=== PATIENT | male | born 1955 | race Caucasian/White ===

== ENCOUNTER 2019-04-09 03:35 | Emergency (ER) | payer OTHER ==
[2019-04-09 04:35] LABS: Absolute Lymphocytes (CBC) 0.2 K/uL (0.7-4.9); Basophils % 1.1 % (0-1.3); MPV 8.8 fL (7.6-11.3); RBC Red Blood Cell Count 1.93 M/uL (4.33-5.43)
[2019-04-09 04:57] LABS: Albumin 1.7 g/dL (3.4-5.0); Bilirubin Direct 0.8 mg/dL (0-0.2); Bilirubin Total 1.8 mg/dL (0.2-1.0); Potassium 4.6 mmol/L (3.5-5.1); Protein, Total 6.6 g/dL (6.4-8.2)
[2019-04-09 05:01] LABS: Hematocrit 17.3 % (39.6-49.0)
[2019-04-09] MEDS ORDERED: NA CHLORIDE 0.9% 500 ML ONE (06:39)
--- NOTE | 2019-04-09 06:39 | ER ---
Nurse's Notes [facility] Name: Lukas Nicole Age: 63 yrs Sex: Male : 1955 Arrival Date: 04/09/2019 Time: 03:42 Bed 2 Private MD: Diagnosis: Abdominal pain and distension. Gross ascites. Ca liver. Anemia Presentation: 04/09 03:40 Presenting complaint: EMS states: we were called out for the chief complaint swelling rr5 of the abdomen (ascitic), having the discomfort that is getting worse. patient been a known case of liver cirrhosis liver cancer. 03:40 Transition of care: patient was not received from another setting of care. Onset of rr5 symptoms was April 09, 2019. Risk Assessment: Do you want to hurt yourself or someone else? Patient reports no desire to harm self or others. Initial Sepsis Screen: Does the patient meet any 2 criteria? No. Patient's initial sepsis screen is negative. Does the patient have a suspected source of infection? No. Patient's initial sepsis screen is negative. Note had [facility] before. but now does get an appointment. patient reported had an on and off diarrhea. Care prior to arrival: Medication(s) given: reglan. 03:40 Method Of Arrival: EMS: [facility] rr5 03:40 Acuity: RAMIRO 3 rr5 Historical: - Allergies: 03:50 No Known Allergies; rr5 - Home Meds: 03:50 Nexavar oral oral [Active]; Lactulose Oral [Active]; doxazosin oral oral [Active]; rr5 Spironolactone Oral [Active]; enoxaparin subcutaneous subcutaneous [Active]; Zofran Oral [Active]; carvedilol oral oral [Active]; amlodipine oral [Active]; Furosemide Oral [Active]; tramadol Oral [Active]; Zinc Sulfate Oral [Active]; D3 [Active]; Miralax Oral [Active]; Simethicone Oral [Active]; gabapentin oral oral [Active]; Acetaminophen-Codeine Oral [Active]; Methocarbamol Oral [Active]; senocot [Active]; - PMHx: 03:50 Hypertension; polycystic kidney disease; gallstones; liver cancer; lymph node cancer; rr5 portal and spleenic blood clots; - PSHx: 03:50 Appendectomy; removed varicose veins; Knee surgery; Hernia repair; leg repair for rr5 bruising compartment syndrome; - Immunization history:: Adult Immunizations up to date. - Social history:: Smoking status: Patient/guardian denies using tobacco, Patient/guardian denies using alcohol, street drugs. - Ebola Screening: : Patient negative for fever greater than or equal to 101.5 degrees Fahrenheit, and additional compatible Ebola Virus Disease symptoms Patient denies exposure to infectious person Patient denies travel to an Ebola-affected area in the 21 days before illness onset. Screenin:58 Abuse screen: Denies threats or abuse. Denies injuries from another. Nutritional rr5 screening: No deficits noted. Tuberculosis screening: No symptoms or risk factors identified. Fall Risk IV access (20 points). Gait- Impaired (20 pts.). Total Lion Fall Scale indicates Low Risk Score (25-44 pts). Fall prevention measures have been instituted. Side Rails Up X 2 Placed close to Nursing Station Frequent Obs/Assesments occuring Family Present and informed to notify staff if they need to leave bedside As available Patient and Family Educated on Fall Prevention Program and strategies. Assessment: 03:30 General: Appears in no apparent distress. uncomfortable, Behavior is calm, cooperative, rr5 appropriate for age. Pain: Complains of pain in abdomen diffusely Pain radiates to chest Pain currently is 5 out of 10 on a pain scale. Quality of pain is described as aching, Pain began gradually, Is intermittent. Neuro: Level of Consciousness is awake, alert, obeys commands, Oriented to person, place, time, situation, Appropriate for age. Cardiovascular: Capillary refill < 3 seconds Patient's skin is warm and dry. Respiratory: Reports shortness of breath Airway is patent Respiratory effort is even, unlabored, Respiratory pattern is regular, symmetrical. GI: Abdomen is noted to have ascites, Reports bloating, diarrhea. : No signs and/or symptoms were reported regarding the genitourinary system. EENT: Eyes icteric sclera. 03:30 Derm: Skin is intact, Skin is pale, Skin temperature is warm. Musculoskeletal: rr5 Capillary refill < 3 seconds, Swelling present in right leg. 04:15 Reassessment: Patient appears in no apparent distress at this time. No changes from rr5 previously documented assessment. Patient and/or family updated on plan of care and expected duration. Pain level reassessed. Patient is alert, oriented x 3, equal unlabored respirations, skin warm/dry/pink. awaiting for results. 05:10 Reassessment: HGB of 5.5 ED provider aware with order made and carried out. for rr5 transfusion 2 PRBC, consented request sent. 06:25 Reassessment: Patient appears in no apparent distress at this time. Patient is alert, rr5 oriented x 3, equal unlabored respirations, skin warm/dry/pink. awaiting for the blood product for transfusion. for transfer to [facility] still awaiting for the acceptance. patient is resting eyes closed breathing spontaneously with oxygen support 2 liters via nasal cannula. no complaints made. 06:52 Reassessment: transfer center [facility] Marianne said to call back after shift change. rr5 06:59 Reassessment: blood transfusion started, checked by 2 nurses. primary nurse at bedside. jd3 07:00 Reassessment: Patient appears in no apparent distress at this time. 1st unit of PRBC rr5 started wristband [id number] unit number [id number] expires 05/02/2019. type a positive. double check by 2 nurses. 07:08 Reassessment: Patient appears in no apparent distress at this time. pt received with blood infusing as ordered, checked off with Miguel MCKAY, transfusion continues at this time, pt tolerating well, pt family at bedside, awaiting to call report to receiving facility, pt to be transferred. 07:41 Reassessment: Patient appears in no apparent distress at this time. report called to jack Hammer RN. She states that [facility] does not accept patients with active blood transfusion, pt to be transfused then transferred to receiving facility, pt and pt family updated. 09:35 Reassessment: Patient appears in no apparent distress at this time. Patient and/or sg family updated on plan of care and expected duration. Pain level reassessed. Patient is alert, oriented x 3, equal unlabored respirations, skin warm/dry/pink. 2nd unit PRBC infusion completed at this time. Respiratory: Airway is patent Respiratory effort is even, unlabored, Respiratory pattern is regular, symmetrical, Breath sounds are clear. 09:35 Derm: Skin is intact, Skin is jaundiced, pale, Skin temperature is warm. sg Musculoskeletal: Capillary refill < 3 seconds, in bilateral fingers. toes. Swelling present in right leg Reports pain in right leg. Vital Signs: 03:45 BP 121 / 62; Pulse 72; Resp 19; Temp 98.4; Pulse Ox 100% ; Weight 113.4 kg; Height 6 rr5 ft. 3 in. (190.50 cm); Pain 5/10; 04:39 BP 118 / 81; Pulse 75; Resp 18; Pulse Ox 99% on 2 lpm NC; rr5 05:45 BP 116 / 71; Pulse 70; Resp 17; Temp 97.5; Pulse Ox 99% on 2 lpm NC; rr5 06:28 BP 115 / 70; Pulse 76; Resp 18; Temp 97.5; Pulse Ox 99% on 2 lpm NC; rr5 07:10 BP 130 / 76; Pulse 88; Resp 18; Temp 97.5; Pulse Ox 99% on 2 lpm NC; sg 07:25 BP 122 / 81; Pulse 79; Resp 16; Temp 97.7; Pulse Ox 100% on 2 lpm NC; sg 08:35 BP 103 / 58; Pulse 73; Resp 16; Temp 98.2; Pulse Ox 100% on 2 lpm NC; sg 09:05 BP 108 / 71; Pulse 72; Resp 16; Temp 98.2; Pulse Ox 100% on 2 lpm NC; Pain 1/10; sg 09:40 BP 112 / 70; Pulse 79; Resp 16; Temp 97.9; Pulse Ox 100% on 2 lpm NC; Pain 1/10; sg 03:45 Body Mass Index 31.25 (113.40 kg, 190.50 cm) rr5 ED Course: 03:20 Maintain EMS IV. Dressing intact. Good blood return noted. Site clean \T\ dry. Gauge \T\ rr 5 site: G20 right forearm. 03:42 Patient arrived in ED. rr5 03:47 Moreno Prince MD is Attending Physician. pkl 03:48 Triage completed. rr5 03:50 Arm band placed on right wrist. rr5 04:28 Miguel Singh RN is Primary Nurse. rr5 04:49 Patient has correct armband on for positive identification. Bed in low position. Call rr5 light in reach. Side rails up X2. Pulse ox on. NIBP on. 05:03 Notified ED physician of a critical lab result(s). Hgb of 5.5, Hct of 17.3. Dr Suresh muller notified. 05:50 transfer initiated by [facility] with Ramon from the [facility]. eb 06:[address] Carroll the hospitalist sewing machines salesperson for [facility] with Dr. Prince for patient eb transfer consultation. 06:29 administrative approval given by Magalie Beauchamp craft coordinator pending a bed. Dr. dl Norton has accepted the patient in transfer to [facility]. 06:39 room assignment given by Magalie Beauchamp. Pt is going to [facility]. Bed 759/ eb report to be called to [phone]. 06:55 Served as a research assoc during rectal exam. rr5 07:00 Report received from NELY Rivera. sg 07:07 Primary Nurse role handed off by Miguel Singh, NELY sg 07:07 Isaac Bass, RN is Primary Nurse. sg 09:44 Patient transferred, IV remains in place. intact, No redness/swelling at site. sg Administered Medications: 07:53 Drug: fentaNYL (PF) 50 mcg Route: IVP; Site: right forearm; sg 08:30 Follow up: Response: No adverse reaction; Pain is decreased; RASS: Drowsy (-1) Point of Care Testing: Guaiac: 06:55 Stool Guaiac: Positive; Stool Hemoccult Control: Pass; rr5 Outcome: 06:39 ER care complete, transfer ordered by . pk 09:44 Transferred by ground EMS to [facility], Transfer form completed. Note: sv Report given to Morena from EMS 09:44 Condition: stable 09:44 Instructed on the need for transfer. 09:57 Patient left the ED. sg Signatures: Tara Joyce RN RN sv Gay, Steven, RN Moreno Hobson MD MD pkl Ballard, Brenda, RN RN bb Davies, Jonathon, RN RN jElizabeth Hogan Raymond, RN RN rr5 Corrections: (The following items were deleted from the chart) 06:32 06:28 BP 115 / 70; Pulse 76bpm; Resp 18bpm; Pulse Ox 99% 2 lpm Nasal Cannula; Temp rr5 96.9F; rr5
--- NOTE | 2019-04-09 06:39 | EDPHYS ---
Physician Documentation [facility] Name: Lukas Nicole Age: 63 yrs Sex: Male : 1955 Arrival Date: 04/09/2019 Time: 03:42 Bed 2 Private MD: ED Physician Moreno Prince HPI: 04/09 04:11 This 63 yrs old Male presents to ER via EMS with complaints of abdominal pkl discomfort. 04:11 The patient presents with abdominal pain abdominal distention difficulty breathing. pkl Onset: The symptoms/episode began/occurred today. Patient has H/O liver cirrhosis and cancer. Nad radiation therapy and now on chemotherapy. Historical: - Allergies: 03:50 No Known Allergies; rr5 - Home Meds: 03:50 Nexavar oral oral [Active]; Lactulose Oral [Active]; doxazosin oral oral [Active]; rr5 Spironolactone Oral [Active]; enoxaparin subcutaneous subcutaneous [Active]; Zofran Oral [Active]; carvedilol oral oral [Active]; amlodipine oral [Active]; Furosemide Oral [Active]; tramadol Oral [Active]; Zinc Sulfate Oral [Active]; D3 [Active]; Miralax Oral [Active]; Simethicone Oral [Active]; gabapentin oral oral [Active]; Acetaminophen-Codeine Oral [Active]; Methocarbamol Oral [Active]; senocot [Active]; - PMHx: 03:50 Hypertension; polycystic kidney disease; gallstones; liver cancer; lymph node cancer; rr5 portal and spleenic blood clots; - PSHx: 03:50 Appendectomy; removed varicose veins; Knee surgery; Hernia repair; leg repair for rr5 bruising compartment syndrome; - Immunization history:: Adult Immunizations up to date. - Social history:: Smoking status: Patient/guardian denies using tobacco, Patient/guardian denies using alcohol, street drugs. - Ebola Screening: : Patient negative for fever greater than or equal to 101.5 degrees Fahrenheit, and additional compatible Ebola Virus Disease symptoms Patient denies exposure to infectious person Patient denies travel to an Ebola-affected area in the 21 days before illness onset. ROS: 04:11 Eyes: Negative for injury, pain, redness, and discharge, ENT: Negative for injury, pkl pain, and discharge, Neck: Negative for injury, pain, and swelling, Cardiovascular: Negative for chest pain, palpitations, and edema. 04:11 Respiratory: Positive for shortness of breath, at rest. 04:11 Abdomen/GI: Positive for abdominal pain, abdominal distension. 04:11 Back: Negative for acute changes. 04:11 : Negative for urinary symptoms. 04:11 MS/extremity: Positive for swelling, of the both legs. 04:11 Skin: Negative for rash. 04:11 Neuro: Negative for altered mental status. Exam: 04:11 Head/Face: Normocephalic, atraumatic. Eyes: Pupils equal round and reactive to light, pkl extra-ocular motions intact. Lids and lashes normal. Conjunctiva and sclera are non-icteric and not injected. Cornea within normal limits. Periorbital areas with no swelling, redness, or edema. ENT: Nares patent. No nasal discharge, no septal abnormalities noted. Tympanic membranes are normal and external auditory canals are clear. Oropharynx with no redness, swelling, or masses, exudates, or evidence of obstruction, uvula midline. Mucous membranes moist. Neck: Trachea midline, no thyromegaly or masses palpated, and no cervical lymphadenopathy. Supple, full range of motion without nuchal rigidity, or vertebral point tenderness. No Meningismus. Chest/axilla: Normal chest wall appearance and motion. Nontender with no deformity. No lesions are appreciated. Cardiovascular: Regular rate and rhythm with a normal S1 and S2. No gallops, murmurs, or rubs. Normal PMI, no JVD. No pulse deficits. Respiratory: Lungs have equal breath sounds bilaterally, clear to auscultation and percussion. No rales, rhonchi or wheezes noted. No increased work of breathing, no retractions or nasal flaring. 04:11 Abdomen/GI: Inspection: distension, that is moderate. 04:11 Back: Exam negative for acute changes. 04:11 : Exam negative for 04:11 Musculoskeletal/extremity: Extremities: grossly normal except: noted in the both legs: swelling. 04:11 Skin: Exam negative for rash. 04:11 Neuro: Orientation: is normal, Mentation: is normal, Cranial nerves: grossly normal, Motor: is normal. Vital Signs: 03:45 BP 121 / 62; Pulse 72; Resp 19; Temp 98.4; Pulse Ox 100% ; Weight 113.4 kg; Height 6 rr5 ft. 3 in. (190.50 cm); Pain 5/10; 04:39 BP 118 / 81; Pulse 75; Resp 18; Pulse Ox 99% on 2 lpm NC; rr5 05:45 BP 116 / 71; Pulse 70; Resp 17; Temp 97.5; Pulse Ox 99% on 2 lpm NC; rr5 06:28 BP 115 / 70; Pulse 76; Resp 18; Temp 97.5; Pulse Ox 99% on 2 lpm NC; rr5 07:10 BP 130 / 76; Pulse 88; Resp 18; Temp 97.5; Pulse Ox 99% on 2 lpm NC; sg 07:25 BP 122 / 81; Pulse 79; Resp 16; Temp 97.7; Pulse Ox 100% on 2 lpm NC; sg 08:35 BP 103 / 58; Pulse 73; Resp 16; Temp 98.2; Pulse Ox 100% on 2 lpm NC; sg 09:05 BP 108 / 71; Pulse 72; Resp 16; Temp 98.2; Pulse Ox 100% on 2 lpm NC; Pain 1/10; sg 09:40 BP 112 / 70; Pulse 79; Resp 16; Temp 97.9; Pulse Ox 100% on 2 lpm NC; Pain /10; sg 03:45 Body Mass Index 31.25 (113.40 kg, 190.50 cm) rr5 MDM: 03:47 Patient medically screened. pkl 06:35 Data reviewed: vital signs, nurses notes, lab test result(s), radiologic studies, plain pkl films. 06:52 ED course: Talked to Dr. Carroll. Transfer to [facility] under Dr. Norton service. pkl 04/09 04:11 Order name: Basic Metabolic Panel pkl 04/09 04:11 Order name: CBC with Diff pkl 04/09 04:11 Order name: Creatinine for Radiology pkl 04/09 04:11 Order name: Hepatic Function pkl 04/09 04:11 Order name: Lipase pkl 04/09 04:11 Order name: AMMONIA pkl 04/09 04:55 Order name: Creatinine (Radiology Only); Complete Time: 05:06 [facility] 04/09 04:57 Order name: Basic Metabolic Panel; Complete Time: 05:06 [facility] 04/09 04:57 Order name: Liver (Hepatic) Function; Complete Time: 05:06 [facility] 04/09 04:57 Order name: Lipase; Complete Time: 05:06 [facility] 04/09 04:58 Order name: Ammonia; Complete Time: 05:06 [facility] 04/09 05:01 Order name: CBC with Automated Diff; Complete Time: 05:06 [facility] 04/09 05:04 Order name: Type And Screen 04/09 05:05 Order name: PRBC 04/09 04:11 Order name: IV Saline Lock; Complete Time: 04:28 [facility] 04/09 04:11 Order name: Labs collected and sent; Complete Time: 04:28 [facility] 04/09 04:11 Order name: XRAY Abdomen Acute Series [facility] 04/09 05:05 Order name: Transfuse; Complete Time: 07:03 04/09 05:44 Order name: XRAY CXR (1 view) [facility] 04/09 05:59 Order name: ABO/RH no charge; Complete Time: 06:23 [facility] 04/09 06:28 Order name: ABO/RH typing [facility] 04/09 06:28 Order name: Antibody Screen [facility] 04/09 06:38 Order name: PT-INR 04/09 07:09 Order name: Protime (+INR) [facility] 04/09 08:51 Order name: RAD [facility] 04/09 09:05 Order name: RAD [facility] Administered Medications: 07:53 Drug: fentaNYL (PF) 50 mcg Route: IVP; Site: right forearm; sg 08:30 Follow up: Response: No adverse reaction; Pain is decreased; RASS: Drowsy (-1) sg Point of Care Testing: Guaiac: 06:55 Stool Guaiac: Positive; Stool Hemoccult Control: Pass; rr5 Disposition: 04/09/19 06:39 Transfer ordered to [facility]. Diagnosis is Abdominal pain and distension. Gross ascites. Ca liver. Anemia. - Reason for transfer: Higher level of care. - Accepting physician is Dr. Norton. - Condition is Stable. - Problem is new. - Symptoms are unchanged. Signatures: Dispatcher [facility] Isaac Bass RN RN sg Moreno Prince MD MD pkJosselin Licona RN RN bb Miguel Singh RN RN rr5 Corrections: (The following items were deleted from the chart) 09:57 06:39 04/09/2019 06:39 Transfer ordered to [facility]. Diagnosis is sg Abdominal pain and distension. Gross ascites. Ca liver. Anemia. Reason for transfer: Higher level of care. Accepting physician is Dr. Norton. Condition is Stable. Problem is new. Symptoms are unchanged. pkl
[2019-04-09 06:56] LABS: Protime INR 1.3
[2019-04-09] MEDS ORDERED: FENTANYL CITR 100 MCG/2 ML ONE (07:51)
--- NOTE | 2019-04-09 08:50 | RAD REPORT ---
EXAM DESCRIPTION: [place] Single View04/09/2019 6:01 am CLINICAL HISTORY: sob COMPARISON: none FINDINGS: The lungs appear clear of acute infiltrate. The heart is normal size IMPRESSION: No acute abnormalities displayed
--- NOTE | 2019-04-09 09:04 | RAD REPORT ---
EXAM DESCRIPTION: RAD - Abdomen Acute Series - 04/09/2019 5:27 am CLINICAL HISTORY: Abdominal pain FINDINGS: Examination is suboptimal secondary to a combination of technique and body habitus. The bowel gas pattern appears unremarkable Free air is not visualized
[2019-04-09 17:31] VITALS: O2SAT 100
[2019-04-09 17:38] VITALS: TEMP 98.2
[2019-04-09 17:39] VITALS: BP 108/71
== END 2019-04-09 09:57 | disposition short-term general hospital (02) ==
LOC: ER 03:35
PROC: 30233N1 Transfusion of Nonautologous Red Blood Cells into Peripheral Vein, Percutaneous Approach (ICD-10-PCS; principal; 2019-04-09)
DX: C22.8 Malignant neoplasm of liver, primary, unspecified as to type (principal); R18.8 Other ascites; D64.9 Anemia, unspecified; K74.60 Unspecified cirrhosis of liver; I10 Essential (primary) hypertension
CPT/HCPCS: 85025; 80048; 36415; 82140; 86900; 86850; 85610; 86901; 80076; 83690; 74022; 71045; 96374; 99285; 36430; J3010; P9016 ×2; J7040

== ENCOUNTER 2019-04-16 10:03 | Inpatient (IN) | payer OTHER ==
--- NOTE | 2019-04-21 16:03 | R.PREADM ---
SCREENING DATE AND TIME 04/21/2019 10:51 (BUTTER MAKER) ANTICIPATED REHAB ADMISSION DATE 04/23/2019 REFERRING FACILITY [facility] REFERRAL DATE AND TIME 04/21/2019 10:51 (BUTTER MAKER) ACUTE ADMIT DATE 04/09/2019 Previous Rehabilitation(s): No. 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 Calin Chung M.D. MR# [id number] NAME ANANT NICOLE ADDRESS [address] [place] [address] [address]IP [address] DATE OF 1955 AGE 63 SSN# [id number] GENDER male MARITAL STATUS RACE white ADMIT FROM 02 - [facility] PRE-HOSPITAL LIVING SETTING 01 - Home (private home/apt. board/care, assisted living, senior living, transitional living) HOME TYPE AND DETAILS Type of home: single family house # of steps to enter the residence: 1 # of levels in the residence: 1 # of steps within the residence: 0 PRE-HOSPITAL LIVING WITH Family/Relatives FAMILY SUPPORT Yes PRIMARY FAMILY CONTACT NAME Bree Pedroza PRIMARY FAMILY CONTACT PHONE PRIMARY FAMILY CONTACT RELATIONSHIP Spouse IS PRIMARY FAMILY CONTACT AUTH. REP.? no 1ST EMERGENCY CONTACT Bree Pedroza 1ST CONTACT PHONE 1ST CONTACT RELATIONSHIP Spouse IS 1ST CONTACT AUTH. REP.? no PHONE 2ND CONTACT ON ADM.? no PATIENT EMPLOYMENT STATUS Retired (for age) PATIENT EMPLOYER No Employer PAYOR INFORMATION: 1ST PAYOR NAME Eri 1ST PAYOR POLICY ID [id number] INJURY/ILLNESS DUE TO ACCIDENT? No ANOTHER [employer] RESPONSIBLE? No PRIMARY REHAB/ACUTE DIAGNOSIS: Decompensated Liver Cirrhosis ONSET DATE 04/09/2019 REHAB IMPAIRMENT CATEGORY (JULEE): 20 Miscellaneous (Misc) does NOT meet 60% rule PRIMARY DIAGNOSIS-RELATED SURGERIES: No surgeries related to the primary diagnosis were performed. 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 is a 63 yo Right-handed white male. On 04/09/2019 [facility] with diagnosis Decompensated Li milagro Cirrhosis . His impairment category is Debility 16 - Debility (16). Pre-morbidly, Pt. was independent/mod-I in Transfers Control, Safety Awareness, Locomotion, Balance, Social Cognition, Sphincter Control, Self-Care, and Endurance; and he had good Safety Awareness. Currently, he has deficits of Locomotion, Balance, Transfers Control, Self-Care, and Endurance. Pt. is now referred to [facility] for acute in-patient rehabilitation in order to maximize patient's functional independence in activities of daily living, strength, ROM, and mobi lity. Patient has realistic goal of being discharged at assistance level 6-[place]inton to reside at Home with Fam rubén/Relatives. Anant Nicole is a 63 year old male that lives with her in a 1 [address] home. He was independent with ADLs and self care. On 04/09/2019, patient has worsening abdominal distention, pain and fatigue and having dark, melanotic stools and was admitted to [facility] and treated. He is now medically stable but in need of 24-hour nursing, doctor supervision and oversite while receiving active and ongoing intensive reasonably expected to participate in 3hours of therapy a day/15 hours per week and receive care with an intensive interdisciplinary approach. 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) Ascites Atrial fibrillation and flutter (I48) Cardiac arrhythmia, unspecified (I49.9) Chronic Kidney Disease Edema Gallstone Heart murmur Hepatitis C Hepatocellular Carcinoma Hypertension Jaundice Mental health Disorder Numbness Polycystic Kidney Disease Rectal Bleeding Symptomatic anemia PAST SURGICAL HISTORY: APPENDECTOMY Cardiac Catheterization EGD Inguinal hernia repair Cholecystectomy Total knee bilateral replacement US upper GI tract, endoscopic MEDICATION ALLERGIES: No Known Drug Allergies (NKDA) ENVIRONMENTAL ALLERGIES: Shellfish - Substance Allergies None Known - Other Allergies None Known CODE STATUS: Full code WEIGHT/HEIGHT/BMI: WEIGHT 252 lbs HEIGHT 6' 3" BMI 31.5 DIET: - Diet Type Regular - Diet - Solid Texture Regular - Diet - Liquid Texture Regular - Tube Feed N/A REVIEW OF SYSTEMS: - Gen Alert and awake Lying in bed No apparent distress Oriented to: person, time, and place - Vital Signs Temperature: 97.7 F SBP/DBP: 120/67 Pulse: 73 Resp: 19 Vital signs stable, afebrile - CVS RRR VITAL SIGNS Temperature: 97.7 F SBP/DBP: 120/67 Pulse: 73 Resp: 19 Vital signs stable, afebrile MEDICATIONS/TREATMENT: Other- See attached MAR (Medication Administration Record). CURRENT SPHINCTER CONTROL: Pre-hospital bladder status: continent # of bladder accidents in the last 7 days prior to screenin Pre-hospital bowel status: continent # of bowel accidents in the last 7 days prior to screenin Last Bowel Movement Date: CURRENT LOCOMOTION STATUS: distance walked 50 feet DETAILED CURRENT FUNCTIONAL STATUS: - Bladder accident frequency: Ind - No accidents in the past 7 days - Bowel accident frequency: Ind - No accidents in the past 7 days - Walking score based on distance walked: 0(N/A) - Wheelchair score based on distance traveled: 0(N/A) QI SCORES: - Self-Care A. Eating 04-Supervision or touching assistance B. Oral hygiene 04-Supervision or touching assistance C. Toileting hygiene 03-Partial/moderate assistance E. Shower/bathe self 03-Partial/moderate assistance F. Upper body dressing 03-Partial/moderate assistance G. Lower body dressing 03-Partial/moderate assistance H. Putting on/taking off footwear 03-Partial/moderate assistance - Mobility A. Roll left and right 03-Partial/moderate assistance B. Sit to lying 03-Partial/moderate assistance C. Lying to sitting on side of bed 88-Not attempted due to medical condition or safety concerns D. Sit to stand 03-Partial/moderate assistance E. Chair/thy-oi-ioevj transfer 03-Partial/moderate assistance F. Toilet transfer 03-Partial/moderate assistance G. Car transfer 88-Not attempted due to medical condition or safety concerns I. Walk 10 feet 03-Partial/moderate assistance J. Walk 50 feet with two turns 88-Not attempted due to medical condition or safety concerns K. Walk 150 feet 88-Not attempted due to medical condition or safety concerns L. Walking 10 feet on uneven surfaces 88-Not attempted due to medical condition or safety concerns M. 1 step (curb) 88-Not attempted due to medical condition or safety concerns N. 4 steps 88-Not attempted due to medical condition or safety concerns O. 12 steps 88-Not attempted due to medical condition or safety concerns P. Picking up object 88-Not attempted due to medical condition or safety concerns R. Wheel 50 feet with two turns 88-Not attempted due to medical condition or safety concerns S. Wheel 150 feet 88-Not attempted due to medical condition or safety concerns - Bladder and Bowel Bladder continence 0-Always continent Bowel continence 0-Always continent - Endurance Fair - Balance Fair - Safety Awareness Fair CURRENT FUNC. DEFICITS: Self-Care, Mobility, Endurance, Balance, and Safety Awareness CURRENT / PREVIOUS ASSISTIVE DEVICES: 3-in-1 Commode BSC [facility] Hospital Bed Raised Toilet Rolling Walker Shower Chair Tub Bench Wheelchair CURRENT USE ASSISTIVE DEVICES: SCDs TEDs HISTORY OF FALLS. HAS THE PATIENT HAD TWO OR MORE FALLS IN THE PAST YEAR OR ANY FALL WITH INJURY IN T HE PAST YEAR?: No PRIOR SURGERY. DID THE PATIENT HAVE MAJOR SURGERY DURING THE 100 DAYS PRIOR TO ADMISSION?: No THERAPY NOTES FROM ACUTE CARE: Attached. SPECIAL NEEDS: - Safety Concerns Skin breakdown precautions needed due to skin breakdown risk PATIENT NEEDS ACTIVE AND ONGOING THERAPEUTIC INTERVENTION OF MULTIPLE THERAPY DISCIPLINES, INCLUDING: - Dietary and Nutrition Adequate Nutrition. Nutritional Education. Nutritional Supplements. PATIENT NEEDS CLOSE MEDICAL SUPERVISION BY A REHABILITATION PHYSICIAN FOR: Coordination of Treatment Team Medical and Co-Morbidity Management PATIENT REQUIRES 24X7 REHAB NURSING FOR MEDICAL AND FUNCTIONAL MGT. OF THE FOLLOWING DEFICITS: Disease Management Medication Management Patient/Family Education Providing Safe Environment PATIENT REQUIRES INTENSIVE, COORDINATED INTERDISCIPLINARY APPROACH TO REHAB: Arranging Home Equipment/Services Discharge Planning Family Intervention/Training Budget Assistant/Case Management PATIENT REHAB POTENTIAL: Sebastián NICOLE is able and expected to receive 3 hours of individualized therapy daily on at least 5 of e very 7 days Sebastián NICOLE's prognosis for significant practical improvement within a reasonable period of time appea rs Good Expected level of measurable improvement will be of a practical value to Sebastián NICOLE's functional capa city or adaptations to impairments Has a viable Discharge Plan Medically appropriate; condition is sufficiently stable to participate in intensive rehab program DISCHARGE PLAN: - Estimated Length of Stay (days) 13. - Consensus on plan Discharge plan has been discussed with primary caregiver. Patient/Family is in agreement with the león n. Primary caregiver is in agreement with the plan. - Patient/Family Goals Return home independently. - Planned Living Setting Upon Discharge Home, to live with Family/Relatives. Transitional Living. RECOMMENDED CARE LEVEL: IRF RECOMMENDATION DETAILS: Recommended Admission to Comprehensive Rehabilitation Program to Increase Functional [place] SCREENER'S COMPLETENESS CONFIRMATION: - Screening Confirmation The patient data collection on this preadmission screening form is finished PHYSICIANS REVIEW AND ADMISSION DETERMINATION Admit - Based on my review of the Pre-Admission Screening results, in my medical judgment and experie nce, I concur with the findings and recommend admission to [facility], as this patient requires an IRF level of care. SIGNATURE PANEL: Clinical Liaison - [electronically] signed by Jason Salomon on 04/21/2019 at 15:56 (BUTTER MAKER) Physician Reviewer - [electronically] signed by Dr. Calin Chung M.D. on 04/21/2019 at 16:03 (BUTTER MAKER )
--- OUTSIDE RECORDS SUMMARY | 2019-04-21 22:12 | XMS REPORT | Summary of Care ---
:1955 Author Organization [facility] Address [address] [place] [address] Care Team Providers Name Role Phone Reymundo Marcos MD Primary Care Provider Reason for Visit Reason Comments Follow-up Diabetes Mellitus II Hypertension Refill Request Encounter Details Date Type Department Care Team Description 01/07/2019 Office Visit [facility] Family Reymundo Marcos, Essential hypertension (Primary Dx); Medicine - Henry GRANADOS Type 2 diabetes mellitus with stage 3 chronic kidney disease, without long- term current use of insulin; [facility] Malignant neoplasm of liver, unspecified liver malignancy type; Drive DR[address] Gastroesophageal reflux disease, esophagitis presence not specified; [place] [id number] Allergies No Known Allergiesdocumented as of this encounter (statuses as of 01/07/2019) Medications Medication Sig Dispensed Refills Start End Date Status Date HYDROcodone-acetaminop Take 1 tablet 120 tablet 0 Active hen 10-325 mg tablet by mouth every 7 6 (six) hours as needed for Pain (scale 4-6). methylPREDNISolone Take by mouth 21 Each 0 Active (MEDROL, PARDEEP,) 4 mg SEE-INSTRUCTIO 8 tabletsIndications: NS. follow Acute gout due to package renal impairment directions involving left ankle amLODIPine 10 mg Take 1 tablet 90 tablet 3 Active tablet by mouth 9 daily. SORAfenib 200 mg Take 1 tab by 0 09/02/19 Active tablet mouth twice 9 20 daily for 2 weeks. Then 1 tab by mouth three times daily for 2 weeks. traMADol 50 mg TAKE ONE (1) 120 tablet 2 Active tabletIndications: TABLET(S) BY 9 Pain MOUTH EVERY SIX HOURS NEEDED FOR PAIN. pantoprazole 40 mg EC Take 1 tablet 30 tablet 5 Active tabletIndications: by mouth 9 Gastroesophageal daily. reflux disease, esophagitis presence not specified olmesartan 40 mg Take 1 tablet 30 tablet 5 Active tabletIndications: by mouth 9 Essential hypertension daily. carvedilol 25 mg Take 2 tablets 120 tablet 1 Active tabletIndications: by mouth 2 9 Essential hypertension (two) times daily with meals. apixaban (ELIQUIS) 2.5 Take 1 tablet 60 tablet 2 Active mg tabletIndications: by mouth 2 9 Essential hypertension (two) times daily. ELIQUIS 5 mg tablet TAKE 1 TABLET 1 01/08/20 Discontinued BY MOUTH TWICE 7 19 A DAY furosemide 20 mg Take 1 tablet 90 tablet 3 01/08/20 Discontinued tablet by mouth 8 19 daily. chlorthalidone 25 mg Take 1 tablet 90 tablet 3 01/08/20 Discontinued tablet by mouth 8 19 daily. olmesartan 40 mg Take 1 tablet 30 tablet 5 01/08/20 Discontinued tablet by mouth 9 19 daily. pantoprazole 40 mg EC Take 1 tablet 30 tablet 5 01/08/20 Discontinued tabletIndications: by mouth 9 19 Gastroesophageal daily. reflux disease, esophagitis presence not specified carvedilol 25 mg Take 2 tablets 120 tablet 1 01/08/20 Discontinued tablet by mouth 2 9 19 (two) times daily with meals. TRAMADOL 50 mg TAKE ONE (1) 120 tablet 2 01/08/20 Discontinued tabletIndications: TABLET(S) BY 9 19 Pain MOUTH EVERY SIX HOURS NEEDED FOR PAIN. documented as of this encounter (statuses as of 01/07/2019) Active Problems Problem Noted Date Chronic hepatitis C 06/02/2015 Gout 06/02/2015 Diabetes 06/02/2015 Essential hypertension 06/02/2015 documented as of this encounter (statuses as of 01/07/2019) Immunizations Name Administration Dates Next Due HEP B, Adult Dosage 04/29/2017, 12/10/2016, 10/29/2016 Influenza Virus Vaccine Quad ID 18-64 YRS 03/02/2015 Influenza Virus Vaccine Quad IM 04/16/2018 Multi-dose 6+ MO Pneumococcal 13 Conjugate, PCV13 (Prevnar 08/08/2016 13) Zoster(Zostavax)(Shingles) 09/12/2016 documented as of this encounter Social History Tobacco Use Types Packs/Day Years Used Date Never Smoker Smokeless Tobacco: Never Used Alcohol Use Drinks/Week oz/Week Comments No Sex Assigned at Date Recorded Not on file Job Start Date Occupation Industry Not on file Not on file Not on file Travel History Travel Start Travel End No recent travel history available. 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 Here for f/u Allergies Anant has No Known Allergies. Medications Outpatient Medications Prior to Visit Medication Sig Dispense Refill SORAfenib 200 mg tablet Take 1 tab by mouth twice daily for 2 weeks. Then 1 tab by mouth three times daily for 2 weeks. TRAMADOL 50 mg tablet TAKE ONE (1) TABLET(S) BY MOUTH EVERY SIX HOURS NEEDED FOR PAIN. 120 tablet 2 carvedilol 25 mg tablet Take 2 tablets by mouth 2 (two) times daily with meals. 120 tablet 1 pantoprazole 40 mg EC tablet Take 1 tablet by mouth daily. 30 tablet 5 amLODIPine 10 mg tablet Take 1 tablet by mouth daily. 90 tablet 3 olmesartan 40 mg tablet Take 1 tablet by mouth daily. 30 tablet 5 chlorthalidone 25 mg tablet Take 1 tablet by mouth daily. 90 tablet 3 furosemide 20 mg tablet Take 1 tablet by mouth daily. 90 tablet 3 HYDROcodone-acetaminophen 10-325 mg tablet Take 1 tablet by mouth every 6 ( six) hours as needed for Pain (scale 4-6). 120 tablet 0 ELIQUIS 5 mg tablet TAKE 1 TABLET BY MOUTH TWICE A DAY 1 methylPREDNISolone (MEDROL, PARDEEP,) 4 mg tablets Take by mouth SEE- INSTRUCTIONS. follow package directions 21 Each 0 No facility-administered medications prior to visit. Histories Past Medical History: Diagnosis Date Cancer of liver Diabetes mellitus Gout Hepatitis C Hepatitis C, chronic says that hep c is gone Hypertension Polycystic kidney disease Past Surgical History: Procedure Laterality Date HERNIA REPAIR Social History Socioeconomic History Marital status: Spouse name: Not on file Number of children: Not on file Years of education: Not on file Highest education level: Not on file Occupational History Not on file Social Needs Financial resource strain: Not on file Food insecurity: Worry: Not on file Inability: Not on file Transportation needs: Medical: Not on file Non-medical: Not on file Tobacco Use Smoking status: Never Smoker Smokeless tobacco: Never Used Substance and Sexual Activity Alcohol use: No Drug use: No Sexual activity: Not on file Lifestyle Physical activity: Days per week: Not on file Minutes per session: Not on file Stress: Not on file Relationships Social connections: Talks on phone: Not on file Gets together: Not on file Attends orthodox service: Not on file Active member of club or organization: Not on file Attends meetings of clubs or organizations: Not on file Relationship status: Not on file Intimate partner violence: Fear of current or ex partner: Not on file Emotionally abused: Not on file Physically abused: Not on file Forced sexual activity: Not on file Other Topics Concern Not on file 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 He appears well- developed and well-nourished. HENT: Head: Normocephalic and atraumatic. Right Ear: External ear normal. Left Ear: External ear normal. Eyes: Pupils are equal, round, and reactive to light. EOM are normal. Cardiovascular: Normal rate, regular rhythm and normal heart sounds. Pulmonary/Chest: Effort normal. Abdominal: Soft. Musculoskeletal: Normal range of motion. Neurological: He is alert and oriented to person, place, and time. Skin: Skin is warm. Vitals reviewed. Assessment/Plan DMII, medication refill HTN, medication refill Pain, medication refill This visit did not involve counseling and coordination that comprised more than 50% of the visit time.Electronically signed by Reymundo Marcos MD at 2018 9:04 AM CDTdocumented in this encounter Plan of Treatment Health Maintenance Due Date Last Done Comments HEPATITIS C (HCV) SCREEN 1955 EYE EXAM 1965 LDL-C 1965 URINE MICROALBUMIN 1965 FOOT EXAM 1973 DTaP,Tdap,and Td Vaccines (1 - Tdap) 1974 COLONOSCOPY 2005 PNEUMOCOCCAL 0-64 YEARS COMBINED SERIES (1 of 1 - 10/03/2016 08/08/2016 PPSV23) Zoster Recombinant Vaccine (SHINGRIX) (2 of 3) 11/07/2016 09/12/2016 HgA1C 02/08/2017 08/08/2016 CREATININE (SERUM) 08/08/2017 08/08/2016 INFLUENZA VACCINE (#1) 2019 04/16/2018 documented as of this encounter Results Not on filedocumented in this encounter Visit Diagnoses Diagnosis Essential hypertension - Primary Unspecified essential hypertension Type 2 diabetes mellitus with stage 3 chronic kidney disease, without long-term current use of insulin Malignant neoplasm of liver, unspecified liver malignancy type Gastroesophageal reflux disease, esophagitis presence not specified Pain Generalized pain documented in this encounter Insurance Payer Benefit Plan Subscriber ID Effective Phone Address Type / Group Dates AETNA - AETNA [id number] 2018-Yanna LAWRENCE Medicare Adv MANAGED MEDICARE ADV nt [id number] [place] [address] documented as of this encounter"
--- OUTSIDE RECORDS SUMMARY | 2019-04-21 22:12 | XMS REPORT | Summary of Care ---
:1955 Author Organization [facility] - Health Address [address] [place] [address] Care Team Providers Name Role Phone Reymundo Marcos MD Primary Care Provider Encounter Details Date Type Department Care Team Description 01/07/2019 Orders Only [facility] Doctor Unassigned, No [address] [facility] [place] [address] [address] [place] [address] Allergies No Known Allergiesdocumented as of this encounter (statuses as of 01/07/2019) Medications Medication Sig Dispensed Refills Start Date End Date Status ELIQUIS 5 mg tablet TAKE 1 TABLET BY 1 11/21/2016 Active MOUTH TWICE A DAY HYDROcodone-acetaminophe Take 1 tablet by 120 tablet 0 04/21/2017 Active n 10-325 mg tablet mouth every 6 (six) hours as needed for Pain (scale 4-6). furosemide 20 mg tablet Take 1 tablet by 90 tablet 3 09/12/2017 Active mouth daily. chlorthalidone 25 mg Take 1 tablet by 90 tablet 3 09/15/2017 Active tablet mouth daily. methylPREDNISolone Take by mouth 21 Each 0 02/11/2018 Active (MEDROL, PARDEEP,) 4 mg SEE-INSTRUCTIONS tabletsIndications: . follow package Acute gout due to renal directions impairment involving left ankle amLODIPine 10 mg tablet Take 1 tablet by 90 tablet 3 07/10/2018 Active mouth daily. olmesartan 40 mg tablet Take 1 tablet by 30 tablet 5 07/10/2018 Active mouth daily. pantoprazole 40 mg EC Take 1 tablet by 30 tablet 5 09/07/2018 Active tabletIndications: mouth daily. Gastroesophageal reflux disease, esophagitis presence not specified carvedilol 25 mg tablet Take 2 tablets 120 tablet 1 10/13/2018 Active by mouth 2 (two) times daily with meals. TRAMADOL 50 mg TAKE ONE (1) 120 tablet 2 11/04/2018 Active tabletIndications: Pain TABLET(S) BY MOUTH EVERY SIX HOURS NEEDED [...] of this encounter Last Filed Vital Signs Not on filedocumented in this encounter Plan of Treatment Health [...] 2019 04/16/2018 documented as of this encounter Procedures Procedure Name Priority Date/Time Associated Diagnosis Comments NO SHOW OR MISSED Routine 01/07/2019 8:40 AM APPOINTMENT POLICY CDT ACKNOWLEDGEMENT documented in this encounter Results Not on filedocumented in this encounter Insurance Payer Benefit Plan Subscriber ID Effective Phone Address Type / Group Dates AETNA - AETNA [id number] 2018-Yanna LAWRENCE Medicare Adv MANAGED MEDICARE ADV nt [id number] [place] [address] documented as of this encounter
--- OUTSIDE RECORDS SUMMARY | 2019-04-21 22:12 | XMS REPORT ---
:1955 Author Organization [facility] Address [address] [place] [address] Dr. Rose [address] [place] [id number] Care Team Providers Name Role Phone Unavailable Unavailable Unavailable Problems This patient has no known problems. Allergies, Adverse Reactions, Alerts This patient has no known allergies or adverse reactions. Medications This patient has no known medications.
--- OUTSIDE RECORDS SUMMARY | 2019-04-21 22:13 | XMS REPORT | Summary of Care ---
:1955 Author Organization [facility] Address [address] [place] [id number] Care Team Providers Name Role Phone Reymundo Marcos MD Primary Care Provider Reason for Visit Reason Comments Follow-up Diabetes Mellitus II Hypertension Refill Request Encounter Details Date Type Department Care Team Description 01/07/2019 Office Visit [facility] Family Reymundo Marcos, Essential hypertension (Primary Dx); Medicine - Henry GRANADOS Type 2 diabetes mellitus with stage 3 chronic kidney disease, without long- term current use of insulin; 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
--- OUTSIDE RECORDS SUMMARY | 2019-04-21 22:13 | XMS REPORT | Summary of Care ---
:1955 Author Organization [facility] Address [address] [place] [id number] Care Team Providers Name Role Phone Reymundo Marcos MD Primary Care Provider Reason for Visit Reason Comments Follow-up Diabetes Mellitus II Hypertension Refill Request Encounter Details Date Type Department Care Team Description 01/07/2019 Office Visit [facility] Family Reymundo Marcos, Essential hypertension (Primary Dx); Medicine - Henry GRANADOS Type 2 diabetes mellitus with stage 3 chronic kidney disease, without long- term current use of insulin; 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
[2019-04-21] MEDS: OXYCODONE HCL 5 MG TAB PO PRN (23:21)
[2019-04-21 23:33] LABS: Urine Appearance CLEAR; Urine Bilirubin NEGATIVE (NEG); Urine Blood NEGATIVE (NEG); Urine Color DK YELLOW; Urine Glucose NEGATIVE (NEG); Urine Protein 2+ (NEG); Urine Specific Gravity 1.015 (1.005-1.030); Urine Urobilinogen 0.2 mg/dL (0.2-1.0); Urine pH 5.5 (5.0-7.0)
[2019-04-22 00:16] LABS: Urine Bacteria <20 /HPF (NONE SEEN); Urine Culture Reflex Order NOT NEEDED; Urine Mucus SLIGHT /HPF (NONE SEEN); Urine RBC NONE SEEN /HPF (NONE SEEN); Urine Urothelial Cells <5 /HPF (NONE SEEN)
[2019-04-22] MEDS ORDERED: DOCUSATE NA/SENNA CONC 1 TAB PO PRN (01:23)
[2019-04-22] MEDS: TRAMADOL HCL 50 MG TAB PO PRN ×2 (01:41→13:11)
[2019-04-22] MEDS: MELATONIN 3 MG TABLET PO PRN (01:41)
[2019-04-22] MEDS: ONDANSETRON 4 MG (ODT) TAB PO PRN ×2 (01:42→13:11)
[2019-04-22 05:57] LABS: Absolute Lymphocytes (CBC) 0.1 K/uL (0.7-4.9); Hematocrit 24.9 % (39.6-49.0); Lymphocytes % 12.6 % (15.3-44.8); RBC Red Blood Cell Count 2.74 M/uL (4.33-5.43)
[2019-04-22 06:17] LABS: Albumin 3.3 g/dL (3.4-5.0); Magnesium 1.6 mg/dL (1.8-2.4); Prealbumin 6.2 mg/dL (20-40)
[2019-04-22] MEDS ORDERED: SPIRONOLACTONE 25 MG TABLET PO SCH (08:00)
[2019-04-22] MEDS ORDERED: CEFEPIME 1 GM/VIAL IV SCH (08:00)
[2019-04-22] MEDS ORDERED: ENOXAPARIN 40 MG/0.4 ML SQ SCH (08:00)
[2019-04-22] MEDS ORDERED: GABAPENTIN 300 MG CAP PO SCH (08:00)
[2019-04-22 08:16] LABS: Anisocytosis 1+; Blood Morphology Comment NOTED (NOT SEEN); Platelet Estimate DECR; Poikilocytosis 1+; Urine White Blood Cell Casts OK
[2019-04-22] MEDS: LACTULOSE 20 GM/30 ML UCUP PO SCH ×2 (08:51→19:40)
[2019-04-22] MEDS: FUROSEMIDE 20 MG TABLET PO SCH ×2 (08:51→17:23)
[2019-04-22] MEDS: MAGNESIUM OXIDE 400 MG TAB PO SCH ×2 (08:51→19:40)
[2019-04-22] MEDS: PANTOPRAZOLE 40MG TABLET PO SCH ×2 (08:51→17:23)
[2019-04-22] MEDS: SPIRONOLACTONE 25 MG TABLET PO SCH ×2 (08:52→17:23)
[2019-04-22] MEDS: metroNIDAZOLE 500 MG TABLET PO SCH ×3 (08:53→20:02)
[2019-04-22] MEDS: CEFEPIME/SWI 1gm 10 ML IV SCH ×2 (08:53→19:40)
[2019-04-22] MEDS: FOLBIC 1 TAB PO SCH (08:56)
[2019-04-22] MEDS: OXYCODONE HCL 5 MG TAB PO PRN (08:56)
[2019-04-22] MEDS ORDERED: metroNIDAZOLE 500 MG TABLET PO SCH (09:00)
[2019-04-22] MEDS: OXYCODONE *CR* 20 MG TAB PO SCH ×2 (09:46→20:00)
[2019-04-22] MEDS: Rifaximin 550 MG Tab PO SCH ×2 (10:54→19:40)
--- NOTE | 2019-04-22 15:55 | FAST ---
ENCOUNTER DATE AND TIME: 04/22/2019 08:00 (SAP PORTAL CONSULTANT) NAME JANNET PARADA DATE OF : 1955 DATE OF ADMISSION: 04/21/2019 22:04 (SAP PORTAL CONSULTANT) PHONE: AGE: 63 N# [id number] GENDER: Male ENCOUNTER PHYSICIAN: Dr. Calin Chung M.D. ADMISSION DIAGNOSIS: - Debility 16 - Debility (16) Decompensated Liver Cirrhosis . ROLL LEFT AND RIGHT: ROLL LEFT AND RIGHT - STEP 1: Does the patient complete the activity by him/herself with no assistance (physical, verbal/nonverbal cueing, setup/clean-up)? Yes. 1. [id number] ADMISSION PERFORMANCE: Independent CODE: 06 SIT TO LYING: SIT TO LYING - STEP 1: Does the patient complete the activity by him/herself with no assistance (physical, verbal/nonverbal cueing, setup/clean-up)? No. SIT TO LYING - STEP 2: Does the patient need only setup/clean-up assistance from one helper? No. SIT TO LYING - STEP 3: Does the patient need only verbal/nonverbal cueing or touching/steadying/contact guard assistance fro m one helper? Yes. 1. [id number] ADMISSION PERFORMANCE: Supervision or touching assistance CODE: 04 LYING TO SITTING: LYING TO SITTING ON SIDE OF BED - STEP 1: Does the patient complete the activity by him/herself with no assistance (physical, verbal/nonverbal cueing, setup/clean-up)? No. LYING TO SITTING ON SIDE OF BED - STEP 2: Does the patient need only setup/clean-up assistance from one helper? No. LYING TO SITTING ON SIDE OF BED - STEP 3: Does the patient need only verbal/nonverbal cueing or touching/steadying/contact guard assistance fro m one helper? Yes. 1. [id number] ADMISSION PERFORMANCE: Supervision or touching assistance CODE: 04 SIT TO STAND: SIT TO STAND - STEP 1: Does the patient complete the activity by him/herself with no assistance (physical, verbal/nonverbal cueing, setup/clean-up)? No. SIT TO STAND - STEP 2: Does the patient need only setup/clean-up assistance from one helper? No. SIT TO STAND - STEP 3: Does the patient need only verbal/nonverbal cueing or touching/steadying/contact guard assistance fro m one helper? Yes. 1. [id number] ADMISSION PERFORMANCE: Supervision or touching assistance CODE: 04 TRANSFERS: BED, CHAIR: CHAIR/[id number] TRANSFER - STEP 1: Does the patient complete the activity by him/herself with no assistance (physical, verbal/nonverbal cueing, setup/clean-up)? No. CHAIR/[id number] TRANSFER - STEP 2: Does the patient need only setup/clean-up assistance from one helper? No. CHAIR/[id number]-[id number] TRANSFER - STEP 3: Does the patient need only verbal/nonverbal cueing or touching/steadying/contact guard assistance fro m one helper? Yes. 1. [id number] ADMISSION PERFORMANCE: Supervision or touching assistance CODE: 04 TRANSFER TOILET: TOILET TRANSFER - STEP 1: Does the patient complete the activity by him/herself with no assistance (physical, verbal/nonverbal cueing, setup/clean-up)? No. TOILET TRANSFER - STEP 2: Does the patient need only setup/clean-up assistance from one helper? No. TOILET TRANSFER - STEP 3: Does the patient need only verbal/nonverbal cueing or touching/steadying/contact guard assistance fro m one helper? Yes. 1. [id number] ADMISSION PERFORMANCE: Supervision or touching assistance CODE: 04 TRANSFERS: CAR: Not attempted due to environmental limitations (e.g., lack of equipment, weather constraints) CODE: 10 WALK 10 FEET: WALK 10 FEET - STEP 1: Does the patient complete the activity by him/herself with no assistance (physical, verbal/nonverbal cueing, setup/clean-up)? No. WALK 10 FEET - STEP 2: Does the patient need only setup/clean-up assistance from one helper? No. WALK 10 FEET - STEP 3: Does the patient need only verbal/nonverbal cueing or touching/steadying/contact guard assistance fro m one helper? Yes. 1. [id number] ADMISSION PERFORMANCE: Supervision or touching assistance CODE: 04 WALK 50 FEET: WALK 50 FEET - STEP 1: Does the patient complete the activity by him/herself with no assistance (physical, verbal/nonverbal cueing, setup/clean-up)? No. WALK 50 FEET - STEP 2: Does the patient need only setup/clean-up assistance from one helper? No. WALK 50 FEET - STEP 3: Does the patient need only verbal/nonverbal cueing or touching/steadying/contact guard assistance fro m one helper? Yes. 1. [id number] ADMISSION PERFORMANCE: Supervision or touching assistance CODE: 04 WALK 150 FEET: WALK 150 FEET - STEP 1: Does the patient complete the activity by him/herself with no assistance (physical, verbal/nonverbal cueing, setup/clean-up)? No. WALK 150 FEET - STEP 2: Does the patient need only setup/clean-up assistance from one helper? No. WALK 150 FEET - STEP 3: Does the patient need only verbal/nonverbal cueing or touching/steadying/contact guard assistance fro m one helper? Yes. 1. [id number] ADMISSION PERFORMANCE: Supervision or touching assistance CODE: 04 WALK 10 FEET UNEVEN: Not attempted due to medical condition or safety concerns CODE: 88 1 STEP (CURB): Not attempted due to medical condition or safety concerns CODE: 88 PICKING UP OBJECT: Not attempted due to medical condition or safety concerns CODE: 88 DOES THE PATIENT USE A WHEELCHAIR/SCOOTER? Q1. DOES THE PATIENT USE A WHEELCHAIR/SCOOTER?: No CODE: 0 INDICATE THE TYPE OF WHEELCHAIR/SCOOTER USED: CODE: EXPR INDICATE THE TYPE OF WHEELCHAIR/SCOOTER USED: CODE: EXPR BLADDER AND BOWEL: CODE: EXPR CODE: EXPR SIGNATURE PANEL: The following modified sections: 1. [id number] Admission Performance, 1. [id number] Admission Performance, 1. [id number] Admission Performance, 1. [id number] Admission Performance, 1. [id number] Admission Performance, 1. [id number] Admission Performance, 1. [id number] Admission Performance, 1. [id number] Admission Performance , 1. [id number] Admission Performance, Q1. Does the patient use a wheelchair/scooter? were [electronical ly] signed by Israel Ty PT on FriApr 22 2019 15:54:16 GMT-0600 (Central Standard Time)
--- NOTE | 2019-04-22 16:25 | R.HP ---
FACILITY: [facility] ENCOUNTER DATE AND TIME: 04/22/2019 16:08 (LEAD GENERATION REPRESENTATIVE) MR#: [id number] NAME ANANT NICOLE ADDRESS: [address] [place] [address] [address] [facility] CITY: [place]IP [address] PHONE: DATE OF : 1955 AGE: 63 SSN# [id number] GENDER: Male DEXTERITY Right-handed MARITAL STATUS RACE White PRE-HOSPITAL LIVING SETTING 01 - Home (private home/apt. board/care, assisted living, longterm, transitional living) PRE-HOSPITAL LIVING WITH Family/Relatives ENCOUNTER PHYSICIAN: Dr. Calin Chung M.D. REFERRING DOCTOR: DR BLAND DATE OF ADMISSION: 04/21/2019 22:04 (LEAD GENERATION REPRESENTATIVE) REFERRING FACILITY [facility] HOME TYPE AND DETAILS: Type of home: single family house # of steps to enter the residence: 1 # of levels in the residence: 1 # of steps within the residence: 0 ADMISSION DIAGNOSIS: Decompensated Liver Cirrhosis ONSET DATE: 04/09/2019 PRIMARY DIAGNOSIS-RELATED SURGERIES: No surgeries related to the primary diagnosis were performed. 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 is a 63 yo Right-handed white male. On 04/09/2019 he was admitted to [facility] with diagnosis Decompensated Li milagro Cirrhosis . His impairment category is Debility 16 - Debility (16). Pre-morbidly, Pt. was independent/mod-I in Transfers Control, Safety Awareness, Locomotion, Balance, Social Cognition, Sphincter Control, Self-Care, and Endurance; and he had good Safety Awareness. Currently, he has deficits of Locomotion, Balance, Transfers Control, Self-Care, and Endurance. Pt. is now referred to [facility] for acute in-patient rehabilitation in order to maximize patient's functional independence in activities of daily living, strength, ROM, and mobi lity. Patient has realistic goal of being discharged at assistance level 6-Quinton to reside at Home with Fam rubén/Relatives. Anant Nicole is a 63 year old male that lives with her in a [address] home. He was independent with ADLs and self care. On 04/09/2019, patient has worsening abdominal distention, pain and fatigue and having dark, melanotic stools and was admitted to [facility] and treated. He is now medically stable but in need of 24-hour nursing, doctor supervision and oversite while receiving active and ongoing intensive reasonably expected to participate in 3hours of therapy a day/15 hours per week and receive care with an intensive interdisciplinary approach. 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 SOCIAL HISTORY: - Home Living Family/Relatives REVIEW OF SYSTEMS: - Gen No Chills No Fatigue Fever - Eyes No Double Vision No itchiness - ENMT No Difficulty Swallowing - CVS No Chest Discomfort No Chest Pain Fatigue No Weight Gain - Resp No Cough No Shortness of Breath - GI Continent No Abdominal Pain No Constipation No Diarrhea - Continent No Kidney Pain No Painful Urination No Urinary Urgency - MSK Joint Pain No Muscle Cramps Stiffness - Skin No Itching No Rash No Suspicious Lesions - Neuro Coordination Difficulty No Difficulty with Concentration No Memory Loss No Seizures Weakness - Psych No Anxiety No Depression No HIV Exposure No Persistent Infections No Seasonal Allergies - Endo No Cold/Heat Intolerance No Excessive Hunger No Excessive Thirst No Excessive Urination PHYSICAL EXAM - Gen Alert and awake Lying in bed No apparent distress Oriented to: person, time, and place - Skin No skin breakdown. Normacephalic - Eyes No abnormalities - ENMT No abnormalities - Neck No abnormalities No cervical adenopathy - CVS RRR - Chest No abnormalities - Resp Clear to auscultation - Abd Soft - GI Non distended Deferred - No abnormalities - Ext Mild bilateral lower extremity edema. - MSK 4+/5 weakness in both lower extremities. - Neuro No focal deficits - Psych No abnormalities VITAL SIGNS Temperature: 97.7 F SBP/DBP: 120/67 Pulse: 73 Resp: 19 NURSING: - Shower allowing shower ACTIVITIES OOB only with supervision QI SCORES: - Self-Care A. Eating 04-Supervision or touching assistance B. Oral hygiene 04-Supervision or touching assistance C. Toileting hygiene 03-Partial/moderate assistance E. Shower/bathe self 03-Partial/moderate assistance F. Upper body dressing 03-Partial/moderate assistance G. Lower body dressing 03-Partial/moderate assistance H. Putting on/taking off footwear 03-Partial/moderate assistance - Mobility A. Roll left and right 03-Partial/moderate assistance B. Sit to lying 03-Partial/moderate assistance C. Lying to sitting on side of bed 88-Not attempted due to medical condition or safety concerns D. Sit to stand 03-Partial/moderate assistance E. Chair/ina-cy-veqsn transfer 03-Partial/moderate assistance F. Toilet transfer 03-Partial/moderate assistance G. Car transfer 88-Not attempted due to medical condition or safety concerns I. Walk 10 feet 03-Partial/moderate assistance J. Walk 50 feet with two turns 88-Not attempted due to medical condition or safety concerns K. Walk 150 feet 88-Not attempted due to medical condition or safety concerns L. Walking 10 feet on uneven surfaces 88-Not attempted due to medical condition or safety concerns M. 1 step (curb) 88-Not attempted due to medical condition or safety concerns N. 4 steps 88-Not attempted due to medical condition or safety concerns O. 12 steps 88-Not attempted due to medical condition or safety concerns P. Picking up object 88-Not attempted due to medical condition or safety concerns R. Wheel 50 feet with two turns 88-Not attempted due to medical condition or safety concerns S. Wheel 150 feet 88-Not attempted due to medical condition or safety concerns - Bladder and Bowel Bladder continence 0-Always continent Bowel continence 0-Always continent - Endurance Fair - Balance Fair - Safety Awareness Fair CURRENT FUNC. DEFICITS: Self-Care, Mobility, Endurance, Balance, and Safety Awareness MEDICATIONS: - Other See attached MAR (Medication Administration Record) ASSESSMENT: Pt. is a 63 yo Right-handed white male.On 04/09/2019 he was admitted to [facility] with diagnosis Decompensated Liver Cirrhosis .His impairment category is Debility 16 - Debil ity (16).Pre-morbidly, Pt. was independent/mod-I in Transfers Control, Safety Awareness, Locomotion, Balance, Social Cognition, Sphincter Control, Self-Care, and Endurance; and he had good Safety Awaren ess.Currently, he has deficits of Locomotion, Balance, Transfers Control, Self-Care, and Endurance.Pt . is now referred to [facility] for acute in-patient rehabilitation in order t o maximize patient's functional independence in activities of daily living, strength, ROM, and mobili ty.- Rehab Goal Patient has realistic goal of being discharged at assistance level 6-Quinton to reside at Home with Fam rubén/Relatives. Anant Nicole is a 63 year old male that lives with her in a 1 jenn home. He was independent with ADLs and self care. On 04/09/2019, patient has worsening abdominal distention, pain and fatigue and having dark, melanotic stools and was admitted to [facility] and treated. He is now medically stable but in need of 24-hour nursing, doctor supervision and oversite while receiving active and ongoing intensive reasonably expected to participate in 3hours of therapy a day/15 hours per week and receive care with an intensive interdisciplinary approach.REHAB PLAN: - Physical Therapy Gait dysfunction - to improve, our physical therapists will perform initial evaluation of pt's status upon admission and devise an individualized program for Gait Training, and Wheel Chair mobility Inability to transfer - to improve, our physical therapists will perform initial evaluation of pt's s tatus upon admission and devise an individualized program for Bed mobility Need for home safety evaluation - to improve, our physical therapists will perform initial evaluation of pt's status upon admission and devise an individualized program for Home Evaluation Need in caregiver upon discharge - to improve, our physical therapists will perform initial evaluatio n of pt's status upon admission and devise an individualized program for Caregiver Training New precaution - to improve, our physical therapists will perform initial evaluation of pt's status u tiffanie admission and devise an individualized program for Patient precaution education Edema - to improve, our physical therapists will perform initial evaluation of pt's status upon admi ssion and devise an individualized program for Elevation Training, and Lymphedema Therapy Poor balance - to improve, our physical therapists will perform initial evaluation of pt's status upo n admission and devise an individualized program for Balance Training Poor endurance - to improve, our physical therapists will perform initial evaluation of pt's status u tiffanie admission and devise an individualized program for Endurance Training Weakness - to improve, our physical therapists will perform initial evaluation of pt's status upon ad mission and devise an individualized program for Aquatic Therapy, Neuromuscular Reeducation, and Stre ngthening Achieving independence - to improve, our physical therapists will perform initial evaluation of pt's status upon admission and devise an individualized program for Community Reintegration Activities - Occupational Therapy ADL deficits - to improve, our occupation therapists will perform initial evaluation of pt's status u tiffanie admission and devise an individualized program for Bathing, Bed mobility, Community Reintegration , Cooking, Dressing, Eating, Fine Motor Skills, Grooming, Homemaking, Kitchen Mobility, Laundry, Marilee ent Education, Safety Awareness, Splinting - Positioning, Transfers(Toilet, Tub, Shower), and Wheel C hair Management Need for patient care specialist - to improve, our occupation therapists will perform initial evaluation of pt's s tatus upon admission and devise an individualized program for Caregiver Training Weakness - to improve, our occupation therapists will perform initial evaluation of pt's status upon admission and devise an individualized program for Aquatic Therapy, Balance, Endurance, UE ROM, and U E strengthening MEDICAL PLAN: - Diet Type Start Regular - Diet - Liquid Texture Start Regular - Tube Feed Start N/A - Other See attached MAR (Medication Administration Record) - Diet - Solid Texture Regular - Shower shower DISCHARGE PLAN: - Estimated Length of Stay (days) 13. - Consensus on plan Discharge plan has been discussed with primary caregiver. Patient/Family is in agreement with the león n. Primary caregiver is in agreement with the plan. - Patient/Family Goals Return home independently. - Planned Living Setting Upon Discharge Home, to live with Family/Relatives. Transitional Living. SIGNATURE PANEL: (LEAD GENERATION REPRESENTATIVE)
--- NOTE | 2019-04-22 16:28 | PAPE ---
PATIENT: [facility] MR# [id number] REFERRING DOCTOR DR BLAND EVALUATION DATE AND TIME 04/22/2019 16:25 (SPLICER MACHINE OPERATOR) NAME JANNET PARADA DATE OF 1955 AGE 63 PHONE SSN# [id number] GENDER male EVALUATING PHYSICIAN Dr. Calin Chugn M.D. 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 PATIENT NEEDS CLOSE MEDICAL SUPERVISION BY A REHABILITATION PHYSICIAN FOR: Coordination of Treatment Team Medical and Co-Morbidity Management PATIENT REQUIRES 24X7 REHAB NURSING FOR MEDICAL AND FUNCTIONAL MGT. OF THE FOLLOWING DEFICITS: Disease Management Medication Management Patient/Family Education Providing Safe Environment PATIENT REQUIRES INTENSIVE, COORDINATED INTERDISCIPLINARY APPROACH TO REHAB: Arranging Home Equipment/Services Discharge Planning Family Intervention/Training Director Of Marketing Analytics/Case Management LIST OF IDENTIFIED AND POTENTIAL PROBLEMS: Alteration in leisure activities Bladder, Incontinence Blood Pressure, Hypertension/hypotension Issues Bowel, Incontinence Infection, Actual or Potential Mobility Impaired Pain, Alteration in Comfort Self Care Deficit Skin Integrity, Actual or Potential Urinary Tract Infection (UTI), Actual or Potential RISK FOR COMPLICATIONS - Hypertension CVA. Hypotension. ME. TIA. INTERVENTIONS - Hypertension PATIENT COULD BE AT RISK FOR COMPLICATIONS FROM ADVERSE MEDICAL CONDITIONS DUE TO HIS/HER COMORBIDITI ES AND THE RIGORS OF THE INTENSIVE REHABILLITATION PROGRAM. METHODS OR INTERVENTIONS TO AVOID COMPLIC ATIONS INCLUDE: - Infection Clinical staff to assess and manage the signs and symptoms of infection including fever, redness, war mth, etc. - Urinary Tract Infection - Falls Patient will be evaluated for Fall Precautions and will be placed on Fall Precautions as indicated pe r protocol. - Skin Breakdown Nursing will assess skin daily using assessment tool and will place on Skin Breakdown Precautions as indicated per protocol. - Pain Clinical staff may employ non-medication methods such as massage, distraction, decrease stimulus, etc . as needed. Clinical staff will assess patient's pain level every shift per protocol to assess and e nsure pain management effectiveness. Medications will be given and the pain level re-assessed. PRELIMINARY PLAN OF CARE: - Physical Therapy Patient needs Physical Therapy for a daily minimum of 1.5 hours at least 5 out of 7 days, to improve: Mobility, Strengthening, Transfers, Stretching, ROM, Endurance, Ability to manage stairs, Gait, and Balance. - Rehabilitation Nursing Patient requires 24x7 Rehabilitation Nursing for: Pain Issues, Identifying and preventing risk factor s, Monitoring and reporting current medical conditions, Assisting with ambulation and transfer, Ligia ting with all ADL-s, Teaching patients about disease process and medications, Family teaching, Provid ing safe environment, Bowel and Bladder Issues, Skin Integrity, and Medication Management. Patient needs Director Of Marketing Analytics and/or Case Management for: Discharge Planning, Arranging Home Equipmen t or Services, and Family Interventions. - Dietary and Nutrition Services Patient needs Dietary and Nutrition Services for: Adequate Nutrition, Nutritional Supplements, and Nu tritional Education. - Occupational Therapy Patient needs Occupational Therapy for a daily minimum of 1.5 hours at least 5 out of 7 days, to impr ove Activities of Daily Living, including: Eating, Grooming, Bathing, Dressing, Toileting, Toilet Tra nsfers, Community Reintegration, Higher functional activities, Adaptive Equipment, Splinting, Househo ld Tasks, and Other activities as determined. QI SCORES: - Self-Care A. Eating 04-Supervision or touching assistance B. Oral hygiene 04-Supervision or touching assistance C. Toileting hygiene 03-Partial/moderate assistance E. Shower/bathe self 03-Partial/moderate assistance F. Upper body dressing 03-Partial/moderate assistance G. Lower body dressing 03-Partial/moderate assistance H. Putting on/taking off footwear 03-Partial/moderate assistance - Mobility A. Roll left and right 03-Partial/moderate assistance B. Sit to lying 03-Partial/moderate assistance C. Lying to sitting on side of bed 88-Not attempted due to medical condition or safety concerns D. Sit to stand 03-Partial/moderate assistance E. Chair/[id number] transfer 03-Partial/moderate assistance F. Toilet transfer 03-Partial/moderate assistance G. Car transfer 88-Not attempted due to medical condition or safety concerns I. Walk 10 feet 03-Partial/moderate assistance J. Walk 50 feet with two turns 88-Not attempted due to medical condition or safety concerns K. Walk 150 feet 88-Not attempted due to medical condition or safety concerns L. Walking 10 feet on uneven surfaces 88-Not attempted due to medical condition or safety concerns M. 1 step (curb) 88-Not attempted due to medical condition or safety concerns N. 4 steps 88-Not attempted due to medical condition or safety concerns O. 12 steps 88-Not attempted due to medical condition or safety concerns P. Picking up object 88-Not attempted due to medical condition or safety concerns R. Wheel 50 feet with two turns 88-Not attempted due to medical condition or safety concerns S. Wheel 150 feet 88-Not attempted due to medical condition or safety concerns - Bladder and Bowel Bladder continence 0-Always continent Bowel continence 0-Always continent - Endurance Fair - Balance Fair - Safety Awareness Fair POTENTIAL FUNCTIONAL GOALS FOR PATIENT TO ACHIEVE BY DISCHARGE: - Safety Precaution Patient will remain free from falls or injury at time of discharge. - Bed Mobility Patient will perform bed mobility at 4-Jefferson level of assistance. - Transfers Patient will complete transfers from bed to chair at 4-Jefferson level of assistance. - Mobility Patient will ambulate 150 ft with 4-Jefferson level of assistance with RW. PATIENT REHAB POTENTIAL Sebastián PARADA is able and expected to receive 3 hours of individualized therapy daily on at least 5 of e very 7 days Sebastián PARADA's prognosis for significant practical improvement within a reasonable period of time appea rs Good Expected level of measurable improvement will be of a practical value to Sebastián PARADA's functional capa city or adaptations to impairments Has a viable Discharge Plan Medically appropriate; condition is sufficiently stable to participate in intensive rehab program DISCHARGE PLAN: - Estimated Length of Stay (days) 13. - Consensus on plan Discharge plan has been discussed with primary caregiver. Patient/Family is in agreement with the león n. Primary caregiver is in agreement with the plan. - Patient/Family Goals Return home independently. - Planned Living Setting Upon Discharge Home, to live with Family/Relatives. Transitional Living. CONCLUSION ON REHABILITATION NECESSITY: I have evaluated patient's pre-admission functional status and, comparing it to the patient's post-ad mission functional status now, I conclude that the pre-admission assessment was accurate. Patient's c ondition on admission supports the medical necessity of admission to IRF. It is safe to proceed with patient's therapy program. SIGNATURE PANEL: (SPLICER MACHINE OPERATOR)
[2019-04-22] MEDS: GABAPENTIN 300 MG CAP PO SCH (20:00)
[2019-04-22] MEDS: PROMOD 30 ML DOSE PO SCH (20:02)
[2019-04-23 06:21] LABS: Absolute Lymphocytes (CBC) 0.1 K/uL (0.7-4.9); Basophils % 1.7 % (0-1.3); Hematocrit 25.4 % (39.6-49.0); Lymphocytes % 9.4 % (15.3-44.8); MPV 8.7 fL (7.6-11.3); RBC Red Blood Cell Count 2.79 M/uL (4.33-5.43)
[2019-04-23 06:22] LABS: Magnesium 1.7 mg/dL (1.8-2.4); Potassium 4.1 mmol/L (3.5-5.1)
[2019-04-23] MEDS: PANTOPRAZOLE 40MG TABLET PO SCH ×2 (07:30→16:41)
[2019-04-23] MEDS: LACTULOSE 20 GM/30 ML UCUP PO SCH ×2 (08:00→20:00)
[2019-04-23] MEDS: GABAPENTIN 300 MG CAP PO SCH ×2 (08:00→20:56)
[2019-04-23] MEDS: PROMOD 30 ML DOSE PO SCH ×2 (08:00→20:00)
[2019-04-23] MEDS: MAGNESIUM OXIDE 400 MG TAB PO SCH ×2 (08:00→20:55)
[2019-04-23] MEDS: OXYCODONE *CR* 20 MG TAB PO SCH ×3 (08:00→20:55)
[2019-04-23] MEDS: FOLBIC 1 TAB PO SCH (08:00)
[2019-04-23] MEDS: CEFEPIME/SWI 1gm 10 ML IV SCH ×2 (09:57→20:54)
[2019-04-23] MEDS: FUROSEMIDE 20 MG TABLET PO SCH ×2 (10:03→16:41)
[2019-04-23] MEDS: Rifaximin 550 MG Tab PO SCH ×2 (10:03→20:55)
[2019-04-23] MEDS: metroNIDAZOLE 500 MG TABLET PO SCH ×3 (10:03→20:55)
[2019-04-23] MEDS: ONDANSETRON 4 MG (ODT) TAB PO PRN ×2 (10:03→21:01)
[2019-04-23] MEDS: SPIRONOLACTONE 25 MG TABLET PO SCH ×2 (10:04→16:42)
--- NOTE | 2019-04-23 10:13 | P.RH.PN ---
Estimated Length of Stay: 12 Expected Discharge Date: 05/02/19 Discharge Disposition Plan: Home Family Support: Yes Penitentiary Goal: Mobility, Transfers, Self Care Vital Signs: Last Vital Signs Temp 96.7 F L 04/22/19 18:46 Pulse 68 04/23/19 10:04 Resp 16 04/22/19 18:46 BP 118/78 04/23/19 10:04 Pulse Ox 96 04/22/19 18:46 Laboratory: Laboratory Last Values WBC 1.3 K/uL (4.3-10.9) L* 04/23/19 05:40 RBC 2.79 M/uL (4.33-5.43) L 04/23/19 05:40 Hgb 8.4 g/dL (13.6-17.9) L 04/23/19 05:40 Hct 25.4 % (39.6-49.0) L 04/23/19 05:40 MCV 91.1 fL (80-100) 04/23/19 05:40 MCH 30.0 pg (27.0-35.0) 04/23/19 05:40 MCHC 33.0 g/dL (32.0-36.0) 04/23/19 05:40 RDW 18.4 % (12.1-15.2) H 04/23/19 05:40 Plt Count 92 K/uL (152-406) L 04/23/19 05:40 MPV 8.7 fL (7.6-11.3) 04/23/19 05:40 Neutrophils % 74.6 % (41.7-73.7) H 04/23/19 05:40 Lymphocytes % 9.4 % (15.3-44.8) L 04/23/19 05:40 Monocytes % 10.4 % (3.3-12.3) 04/23/19 05:40 Eosinophils % 3.9 % (0-4.4) 04/23/19 05:40 Basophils % 1.7 % (0-1.3) H 04/23/19 05:40 Absolute Neutrophils 1.0 K/uL (1.8-8.0) L 04/23/19 05:40 Absolute Lymphocytes 0.1 K/uL (0.7-4.9) L 04/23/19 05:40 Absolute Monocytes 0.1 K/uL (0.1-1.3) 04/23/19 05:40 Absolute Eosinophils 0.1 K/uL (0-0.5) 04/23/19 05:40 Absolute Basophils 0.0 K/uL (0-0.5) 04/23/19 05:40 Poikilocytosis 1+ 04/22/19 05:40 Anisocytosis 1+ 04/22/19 05:40 Morphology Comment Noted (NOT SEEN) 04/22/19 05:40 Sodium 135 mmol/L (136-145) L 04/23/19 05:40 Potassium 4.1 mmol/L (3.5-5.1) 04/23/19 05:40 Chloride 105 mmol/L (98-107) 04/23/19 05:40 Carbon Dioxide 25 mmol/L (21-32) 04/23/19 05:40 BUN 18 mg/dL (7-18) 04/23/19 05:40 Creatinine 1.51 mg/dL (0.55-1.3) H 04/23/19 05:40 Estimated GFR 47 mL/min (=/>90) L 04/23/19 05:40 Glucose 112 mg/dL (74-106) H 04/23/19 05:40 Calcium 8.4 mg/dL (8.5-10.1) L 04/23/19 05:40 Magnesium 1.7 mg/dL (1.8-2.4) L 04/23/19 05:40 Ammonia 20 umol/L (19-54) 04/23/19 05:40 Albumin 3.3 g/dL (3.4-5.0) L D 04/22/19 05:40 Prealbumin 6.2 mg/dL (20-40) L 04/22/19 05:40 Urine Color Dk yellow 04/21/19 22:50 Urine Appearance Clear 04/21/19 22:50 Urine pH 5.5 (5.0-7.0) 04/21/19 22:50 Ur Specific Startex 1.015 (1.005-1.030) 04/21/19 22:50 Urine Ketones Trace (NEG) 04/21/19 22:50 Urine Blood Negative (NEG) 04/21/19 22:50 Urine Nitrite Negative (NEG) 04/21/19 22:50 Urine Bilirubin Negative (NEG) 04/21/19 22:50 Urine Urobilinogen 0.2 mg/dL (0.2-1.0) 04/21/19 22:50 Ur Leukocyte Esterase Negative (NEG) 04/21/19 22:50 Urine RBC None seen /HPF (NONE SEEN) 04/21/19 22:50 Urine WBC <5 /HPF (<5) 04/21/19 22:50 Ur Squamous Epith Cells <5 /HPF (NONE SEEN) 04/21/19 22:50 Ur Urothelial Cells <5 /HPF (NONE SEEN) 04/21/19 22:50 Urine Bacteria <20 /HPF (NONE SEEN) 04/21/19 22:50 Urine Mucus Slight /HPF (NONE SEEN) 04/21/19 22:50 Urine Culture Reflexed Not needed 04/21/19 22:50 Urine Glucose Negative (NEG) 04/21/19 22:50 Urine Total Protein 2+ (NEG) H 04/21/19 22:50 Weight: 239 lb Closed Surgical Incision Present: No Negative Pressure Wound Therapy Present: No Physician Update: He is walking 250' with standby assistance. He is refusing to increase gabapentin dosage and did not want to taking any pain medications. He will be discharged on next week. Medical Issues: Patient is always continent with bladder and bowel. Functional Improvement: pt presents with moderate <-> severe strength deficits in the R LE. pt demonstrates reduced balance and stability during ambulation and functional transfers. pt is often limited by pain; however, this was not the case during the session. pt exhibits poor trunk strength. pt experiences poor tolerance to functional activity due to pain, fatigue, and weakness. Skilled PT services are necessary to address the above mentioned impairments and functional limitations. Summary: Patient's care plan and intermodal dispatcher goals have been reviewed and revised as necessary. Please see the Rehabilitation Signature page for all necessary signatures.
[2019-04-23] MEDS: FERROUS SULFATE 325 MG TAB PO SCH (11:57)
[2019-04-23] MEDS: FE SULF/FA/VIT B COMP & C TAB PO SCH (11:57)
--- NOTE | 2019-04-24 02:11 | FAST ---
SHIFT START DATE/TIME: 04/23/2019 19:00 (FRICTION WELDING MACHINE OPERATOR) SHIFT END DATE/TIME: 04/24/2019 07:00 (FRICTION WELDING MACHINE OPERATOR) NAME JANNET PARADA DATE OF : 1955 DATE OF ADMISSION: 04/21/2019 22:04 (FRICTION WELDING MACHINE OPERATOR) PHONE: AGE: 63 SSN# [id number] GENDER: Male ENCOUNTER PHYSICIAN: Dr. Calin Chung M.D. ADMISSION DIAGNOSIS: - Debility 16 - Debility (16) Decompensated Liver Cirrhosis . EATING: Not assessed/no information CODE: - ORAL HYGIENE: Not assessed/no information CODE: - TOILETING HYGIENE: TOILETING HYGIENE - STEP 1: Does the patient complete the activity by him/herself with no assistance (physical, verbal/nonverbal cueing, setup/clean-up)? No. TOILETING HYGIENE - STEP 2: Does the patient need only setup/clean-up assistance from one helper? No. TOILETING HYGIENE - STEP 3: Does the patient need only verbal/nonverbal cueing or touching/steadying/contact guard assistance fro m one helper? Yes. 1. [id number] ADMISSION PERFORMANCE: Supervision or touching assistance CODE: 04 BATHING: Not assessed/no information CODE: - DRESSING - UPPER BODY: Not assessed/no information CODE: - DRESSING - LOWER BODY: Not assessed/no information CODE: - PUTTING ON/TAKING OFF FOOTWEAR: Not assessed/no information CODE: - ROLL LEFT AND RIGHT: Not assessed/no information CODE: - SIT TO LYING: Not assessed/no information CODE: - LYING TO SITTING: Not assessed/no information CODE: - SIT TO STAND: Not assessed/no information CODE: - TRANSFERS: BED, CHAIR: Not assessed/no information CODE: - TRANSFER TOILET: TOILET TRANSFER - STEP 1: Does the patient complete the activity by him/herself with no assistance (physical, verbal/nonverbal cueing, setup/clean-up)? No. TOILET TRANSFER - STEP 2: Does the patient need only setup/clean-up assistance from one helper? No. TOILET TRANSFER - STEP 3: Does the patient need only verbal/nonverbal cueing or touching/steadying/contact guard assistance fro m one helper? Yes. 1. [id number] ADMISSION PERFORMANCE: Supervision or touching assistance CODE: 04 TRANSFERS: CAR: Not assessed/no information CODE: - WALK 10 FEET: Not assessed/no information CODE: - 1 STEP (CURB): Not assessed/no information CODE: - PICKING UP OBJECT: Not assessed/no information CODE: - DOES THE PATIENT USE A WHEELCHAIR/SCOOTER? CODE: EXPR WHEEL 50 FEET WITH TWO TURNS: Not assessed/no information CODE: - INDICATE THE TYPE OF WHEELCHAIR/SCOOTER USED: CODE: EXPR WHEEL 150 FEET: Not assessed/no information CODE: - INDICATE THE TYPE OF WHEELCHAIR/SCOOTER USED: CODE: EXPR BLADDER AND BOWEL: H350. BLADDER CONTINENCE (3-DAY ASSESSMENT PERIOD): Always continent (no documented incontinence) CODE: 0 H400. BOWEL CONTINENCE (3-DAY ASSESSMENT PERIOD): Always continent CODE: 0
[2019-04-24] MEDS: PROMOD 30 ML DOSE PO SCH ×2 (08:00→19:22)
[2019-04-24] MEDS: Rifaximin 550 MG Tab PO SCH ×2 (08:16→19:22)
[2019-04-24] MEDS: LACTULOSE 20 GM/30 ML UCUP PO SCH ×3 (08:16→20:00)
[2019-04-24] MEDS: OXYCODONE *CR* 20 MG TAB PO SCH ×2 (08:17→19:26)
[2019-04-24] MEDS: SPIRONOLACTONE 25 MG TABLET PO SCH ×2 (08:18→16:55)
[2019-04-24] MEDS: FOLBIC 1 TAB PO SCH (08:18)
[2019-04-24] MEDS: GABAPENTIN 300 MG CAP PO SCH ×2 (08:18→19:22)
[2019-04-24] MEDS: MAGNESIUM OXIDE 400 MG TAB PO SCH ×2 (08:19→19:22)
[2019-04-24] MEDS: FUROSEMIDE 20 MG TABLET PO SCH ×2 (08:19→16:54)
[2019-04-24] MEDS: PANTOPRAZOLE 40MG TABLET PO SCH ×2 (08:19→16:55)
[2019-04-24] MEDS: FERROUS SULFATE 325 MG TAB PO SCH (08:19)
[2019-04-24] MEDS: metroNIDAZOLE 500 MG TABLET PO SCH ×3 (08:19→19:22)
[2019-04-24] MEDS: FE SULF/FA/VIT B COMP & C TAB PO SCH (08:19)
[2019-04-24] MEDS: CEFEPIME/SWI 1gm 10 ML IV SCH ×2 (08:21→19:25)
--- NOTE | 2019-04-24 09:42 | FAST ---
ENCOUNTER DATE AND TIME: 04/22/2019 08:00 (MACHINE CHOCOLATE MOLDER) NAME JANNET PARADA DATE OF : 1955 DATE OF ADMISSION: 04/21/2019 22:04 (MACHINE CHOCOLATE MOLDER) PHONE: AGE: 63 N# [id number] GENDER: Male ENCOUNTER PHYSICIAN: Dr. Calin Chung M.D. ADMISSION DIAGNOSIS: - Debility 16 - Debility (16) Decompensated Liver Cirrhosis . EATING: EATING - STEP 1: Does the patient complete the activity by him/herself with no assistance (physical, verbal/nonverbal cueing, setup/clean-up)? Yes. 1. [id number] ADMISSION PERFORMANCE: Independent CODE: 06 ORAL HYGIENE: ORAL HYGIENE - STEP 1: Does the patient complete the activity by him/herself with no assistance (physical, verbal/nonverbal cueing, setup/clean-up)? Yes. 1. [id number] ADMISSION PERFORMANCE: Independent CODE: 06 TOILETING HYGIENE: Not assessed/no information CODE: - BATHING: SHOWER/BATHE SELF - STEP 1: Does the patient complete the activity by him/herself with no assistance (physical, verbal/nonverbal cueing, setup/clean-up)? No. SHOWER/BATHE SELF - STEP 2: Does the patient need only setup/clean-up assistance from one helper? Yes. 1. [id number] ADMISSION PERFORMANCE: Setup or clean-up assistance CODE: 05 DRESSING - UPPER BODY: DRESSING - UPPER BODY - STEP 1: Does the patient complete the activity by him/herself with no assistance (physical, verbal/nonverbal cueing, setup/clean-up)? No. DRESSING - UPPER BODY - STEP 2: Does the patient need only setup/clean-up assistance from one helper? Yes. 1. [id number] ADMISSION PERFORMANCE: Setup or clean-up assistance CODE: 05 DRESSING - LOWER BODY: DRESSING - LOWER BODY - STEP 1: Does the patient complete the activity by him/herself with no assistance (physical, verbal/nonverbal cueing, setup/clean-up)? No. DRESSING - LOWER BODY - STEP 2: Does the patient need only setup/clean-up assistance from one helper? No. DRESSING - LOWER BODY - STEP 3: Does the patient need only verbal/nonverbal cueing or touching/steadying/contact guard assistance fro m one helper? No. DRESSING - LOWER BODY - STEP 4: Does the patient need physical assistance - for example lifting or trunk support from one helper - wi th the helper providing less than half of the effort? No. DRESSING - LOWER BODY - STEP 5: Does the patient need physical assistance - for example lifting or trunk support from one helper - wi th the helper providing more than half of the effort? Yes. 1. [id number] ADMISSION PERFORMANCE: Substantial/maximal assistance CODE: 02 PUTTING ON/TAKING OFF FOOTWEAR: FOOTWEAR - STEP 1: Does the patient complete the activity by him/herself with no assistance (physical, verbal/nonverbal cueing, setup/clean-up)? No. FOOTWEAR - STEP 2: Does the patient need only setup/clean-up assistance from one helper? No. FOOTWEAR - STEP 3: Does the patient need only verbal/nonverbal cueing or touching/steadying/contact guard assistance fro m one helper? No. FOOTWEAR - STEP 4: Does the patient need physical assistance - for example lifting or trunk support from one helper - wi th the helper providing less than half of the effort? No. FOOTWEAR - STEP 5: Does the patient need physical assistance - for example lifting or trunk support from one helper - wi th the helper providing more than half of the effort? No. FOOTWEAR - STEP 6: Does the helper provide all of the effort? OR Is the assistance of two or more helpers required to co mplete the activity? Yes. 1. [id number] ADMISSION PERFORMANCE: Dependent CODE: 01 DOES THE PATIENT USE A WHEELCHAIR/SCOOTER? CODE: EXPR INDICATE THE TYPE OF WHEELCHAIR/SCOOTER USED: CODE: EXPR INDICATE THE TYPE OF WHEELCHAIR/SCOOTER USED: CODE: EXPR BLADDER AND BOWEL: CODE: EXPR CODE: EXPR SIGNATURE PANEL: The following modified sections: 1. [id number] Admission Performance, 1. [id number] Admission Performance, 1. [id number] Admission Performance, 1. [id number] Admission Performance, 1. [id number] Admission Performance, 1. [id number] Admission Performance, 1. [id number] Admission Performance were [electronically] signed by Connor Hill OT on Sat Apr 24 2019 09:41:57 GMT-0600 (Central Standard Time)
[2019-04-24] MEDS: OXYCODONE HCL 5 MG TAB PO PRN (17:11)
[2019-04-24] MEDS: ONDANSETRON 4 MG (ODT) TAB PO PRN (19:26)
[2019-04-24] MEDS: MELATONIN 3 MG TABLET PO PRN (19:27)
[2019-04-25] MEDS: LACTULOSE 20 GM/30 ML UCUP PO SCH ×2 (07:28→20:52)
[2019-04-25] MEDS: CEFEPIME/SWI 1gm 10 ML IV SCH ×2 (07:28→20:51)
[2019-04-25] MEDS: PANTOPRAZOLE 40MG TABLET PO SCH ×2 (07:29→17:00)
[2019-04-25] MEDS: FERROUS SULFATE 325 MG TAB PO SCH (07:29)
[2019-04-25] MEDS: Rifaximin 550 MG Tab PO SCH ×2 (07:29→20:52)
[2019-04-25] MEDS: FUROSEMIDE 20 MG TABLET PO SCH ×2 (07:29→17:01)
[2019-04-25] MEDS: PROMOD 30 ML DOSE PO SCH ×2 (07:29→20:00)
[2019-04-25] MEDS: MAGNESIUM OXIDE 400 MG TAB PO SCH ×2 (07:29→20:52)
[2019-04-25] MEDS: metroNIDAZOLE 500 MG TABLET PO SCH ×3 (07:29→20:51)
[2019-04-25] MEDS: FE SULF/FA/VIT B COMP & C TAB PO SCH (07:31)
[2019-04-25] MEDS: SPIRONOLACTONE 25 MG TABLET PO SCH ×2 (07:31→16:59)
[2019-04-25] MEDS: FOLBIC 1 TAB PO SCH (07:33)
[2019-04-25] MEDS: OXYCODONE *CR* 20 MG TAB PO SCH ×2 (07:33→20:52)
[2019-04-25] MEDS: GABAPENTIN 300 MG CAP PO SCH ×2 (07:33→20:52)
[2019-04-25] MEDS: ONDANSETRON 4 MG (ODT) TAB PO PRN ×2 (07:53→20:52)
[2019-04-25] MEDS: OXYCODONE HCL 5 MG TAB PO PRN (13:37)
[2019-04-25] MEDS: MELATONIN 3 MG TABLET PO PRN (20:52)
[2019-04-26] MEDS: OXYCODONE HCL 5 MG TAB PO PRN ×2 (02:07→13:21)
[2019-04-26] MEDS: OXYCODONE *CR* 20 MG TAB PO SCH ×2 (07:47→20:52)
[2019-04-26] MEDS: PANTOPRAZOLE 40MG TABLET PO SCH ×2 (07:47→16:55)
[2019-04-26] MEDS: ONDANSETRON 4 MG (ODT) TAB PO PRN ×3 (07:56→20:51)
[2019-04-26] MEDS: PROMOD 30 ML DOSE PO SCH ×2 (08:00→20:00)
[2019-04-26] MEDS: GABAPENTIN 300 MG CAP PO SCH ×2 (09:00→20:53)
[2019-04-26] MEDS: CEFEPIME/SWI 1gm 10 ML IV SCH ×2 (09:00→20:53)
[2019-04-26] MEDS: LACTULOSE 20 GM/30 ML UCUP PO SCH ×2 (09:00→20:53)
[2019-04-26] MEDS: Rifaximin 550 MG Tab PO SCH ×2 (09:00→20:53)
[2019-04-26] MEDS: HOME MED 1 EA UNK TOP PRN (09:02)
[2019-04-26] MEDS: metroNIDAZOLE 500 MG TABLET PO SCH ×3 (09:04→20:52)
[2019-04-26] MEDS: FERROUS SULFATE 325 MG TAB PO SCH (09:05)
[2019-04-26] MEDS: MAGNESIUM OXIDE 400 MG TAB PO SCH ×2 (09:05→20:53)
[2019-04-26] MEDS: FE SULF/FA/VIT B COMP & C TAB PO SCH (09:05)
[2019-04-26] MEDS: FOLBIC 1 TAB PO SCH (09:05)
[2019-04-26] MEDS: FUROSEMIDE 20 MG TABLET PO SCH ×2 (09:05→16:55)
[2019-04-26] MEDS: SPIRONOLACTONE 25 MG TABLET PO SCH ×2 (09:05→16:55)
[2019-04-26] MEDS: TRAMADOL HCL 50 MG TAB PO PRN (09:07)
--- NOTE | 2019-04-26 12:55 | FAST ---
ENCOUNTER DATE AND TIME: 04/26/2019 08:00 (BIOPHYSICS SCIENTIST) NAME JANNET PARADA DATE OF : 1955 DATE OF ADMISSION: 04/21/2019 22:04 (BIOPHYSICS SCIENTIST) PHONE: AGE: 63 N# [id number] GENDER: Male ENCOUNTER PHYSICIAN: Dr. Calin Chung M.D. ADMISSION DIAGNOSIS: - Debility 16 - Debility (16) Decompensated Liver Cirrhosis . EATING: Not assessed/no information CODE: - ORAL HYGIENE: ORAL HYGIENE - STEP 1: Does the patient complete the activity by him/herself with no assistance (physical, verbal/nonverbal cueing, setup/clean-up)? Yes. 1. [id number] ADMISSION PERFORMANCE: Independent CODE: 06 TOILETING HYGIENE: Not assessed/no information CODE: - BATHING: SHOWER/BATHE SELF - STEP 1: Does the patient complete the activity by him/herself with no assistance (physical, verbal/nonverbal cueing, setup/clean-up)? No. SHOWER/BATHE SELF - STEP 2: Does the patient need only setup/clean-up assistance from one helper? No. SHOWER/BATHE SELF - STEP 3: Does the patient need only verbal/nonverbal cueing or touching/steadying/contact guard assistance fro m one helper? Yes. 1. [id number] ADMISSION PERFORMANCE: Supervision or touching assistance CODE: 04 DRESSING - UPPER BODY: DRESSING - UPPER BODY - STEP 1: Does the patient complete the activity by him/herself with no assistance (physical, verbal/nonverbal cueing, setup/clean-up)? Yes. 1. [id number] ADMISSION PERFORMANCE: Independent CODE: 06 DRESSING - LOWER BODY: DRESSING - LOWER BODY - STEP 1: Does the patient complete the activity by him/herself with no assistance (physical, verbal/nonverbal cueing, setup/clean-up)? No. DRESSING - LOWER BODY - STEP 2: Does the patient need only setup/clean-up assistance from one helper? No. DRESSING - LOWER BODY - STEP 3: Does the patient need only verbal/nonverbal cueing or touching/steadying/contact guard assistance fro m one helper? Yes. 1. [id number] ADMISSION PERFORMANCE: Supervision or touching assistance CODE: 04 PUTTING ON/TAKING OFF FOOTWEAR: FOOTWEAR - STEP 1: Does the patient complete the activity by him/herself with no assistance (physical, verbal/nonverbal cueing, setup/clean-up)? No. FOOTWEAR - STEP 2: Does the patient need only setup/clean-up assistance from one helper? No. FOOTWEAR - STEP 3: Does the patient need only verbal/nonverbal cueing or touching/steadying/contact guard assistance fro m one helper? Yes. 1. [id number] ADMISSION PERFORMANCE: Supervision or touching assistance CODE: 04 DOES THE PATIENT USE A WHEELCHAIR/SCOOTER? CODE: EXPR INDICATE THE TYPE OF WHEELCHAIR/SCOOTER USED: CODE: EXPR INDICATE THE TYPE OF WHEELCHAIR/SCOOTER USED: CODE: EXPR BLADDER AND BOWEL: CODE: EXPR CODE: EXPR SIGNATURE PANEL: The following modified sections: 1. [id number] Admission Performance, 1. [id number] Admission Performance, 1. [id number] Admission Performance, 1. [id number] Admission Performance, 1. [id number] Admission Performance were [electronically] signed by SAVANNAH George on FriApr 26 2019 12:54:59 GMT-0600 (Central Standard Time)
--- NOTE | 2019-04-26 18:08 | R.PN ---
ENCOUNTER DATE AND TIME: 04/26/2019 18:01 (MEDIA LIAISON OFFICER) NAME JANNET PARADA DATE OF : 1955 DATE OF ADMISSION: 04/21/2019 22:04 (MEDIA LIAISON OFFICER) Decompensated Liver Cirrhosis CHIEF COMPLAINT: Debility and liver cirrhosis. SUBJECTIVE: Pt denied any depression. Pt denied any Shortness of Breath. Ambulated 240' using a rolling walker with minimum assistance. Mobilized wheelchair 250' with standby assistance. WBC 1.3 likely secondary to chronic cirrhosis. VITAL SIGNS Temperature: 97.7 F SBP/DBP: 138/64 Pulse: 86 Resp: 16 MEDICATION ALLERGIES: No Known Drug Allergies (NKDA) ENVIRONMENTAL ALLERGIES: Shellfish - Substance Allergies None Known - Other Allergies None Known NURSING: - Shower allowing shower ACTIVITIES OOB only with supervision THERAPIES: - Dietary and Nutrition Adequate Nutrition. Nutritional Education. Nutritional Supplements. PHYSICAL EXAM - Gen Alert and awake Lying in bed No apparent distress Oriented to: person, time, and place - Skin No skin breakdown. Normacephalic - Eyes No abnormalities - ENMT No abnormalities - Neck No abnormalities No cervical adenopathy - CVS RRR - Chest No abnormalities - Resp Clear to auscultation - Abd Soft - GI Non distended Deferred - No abnormalities - Ext Mild bilateral lower extremity edema. - MSK 4+/5 weakness in both lower extremities. - Neuro No focal deficits - Psych No abnormalities ASSESSMENT: Pt. is a 63 yo Right-handed white male.On 04/09/2019 he was admitted to [facility] with diagnosis Decompensated Liver Cirrhosis .His impairment category is Debility 16 - Debil ity (16).Pre-morbidly, Pt. was independent/mod-I in Transfers Control, Safety Awareness, Locomotion, Balance, Social Cognition, Sphincter Control, Self-Care, and Endurance; and he had good Safety Awaren ess.Currently, he has deficits of Locomotion, Balance, Transfers Control, Self-Care, and Endurance.Pt . is now referred to [facility] for acute in-patient rehabilitation in order t o maximize patient's functional independence in activities of daily living, strength, ROM, and mobili ty.- Rehab Goal Patient has realistic goal of being discharged at assistance level 6-[place] to reside at Home with Fam rubén/Relatives. MDM/PLAN: - Physical Therapy Gait dysfunction - to improve, our physical therapists will perform initial evaluation of pt's statu s upon admission and devise an individualized program for Gait Training, and Wheel Chair mobility Inability to transfer - to improve, our physical therapists will perform initial evaluation of pt's status upon admission and devise an individualized program for Bed mobility Need for home safety evaluation - to improve, our physical therapists will perform initial evaluatio n of pt's status upon admission and devise an individualized program for Home Evaluation Need in caregiver upon discharge - to improve, our physical therapists will perform initial evaluati on of pt's status upon admission and devise an individualized program for Caregiver Training Edema - to improve, our physical therapists will perform initial evaluation of pt's status upon admis alison and devise an individualized program for Elevation Training, and Lymphedema Therapy New precaution - to improve, our physical therapists will perform initial evaluation of pt's status upon admission and devise an individualized program for Patient precaution education Poor balance - to improve, our physical therapists will perform initial evaluation of pt's status up on admission and devise an individualized program for Balance Training Poor endurance - to improve, our physical therapists will perform initial evaluation of pt's status upon admission and devise an individualized program for Endurance Training Weakness - to improve, our physical therapists will perform initial evaluation of pt's status upon a dmission and devise an individualized program for Aquatic Therapy, Neuromuscular Reeducation, and Str engthening Achieving independence - to improve, our physical therapists will perform initial evaluation of pt's status upon admission and devise an individualized program for Community Reintegration Activities - Occupational Therapy ADL deficits - to improve, our occupation therapists will perform initial evaluation of pt's status upon admission and devise an individualized program for Bathing, Bed mobility, Community Reintegratio n, Cooking, Dressing, Eating, Fine Motor Skills, Grooming, Homemaking, Kitchen Mobility, Laundry, Pat ient Education, Safety Awareness, Splinting - Positioning, Transfers(Toilet, Tub, Shower), and Wheel Chair Management Need for rn homecare - to improve, our occupation therapists will perform initial evaluation of pt's status upon admission and devise an individualized program for Caregiver Training Weakness - to improve, our occupation therapists will perform initial evaluation of pt's status upon admission and devise an individualized program for Aquatic Therapy, Balance, Endurance, UE ROM, and UE strengthening - Other See attached MAR (Medication Administration Record) - Diet Type Continue Regular - Diet - Liquid Texture Continue Regular - Tube Feed Continue N/A - Diet - Solid Texture Continue Regular - Shower allowing shower FUNCTIONAL STATUS: UPDATED AT WEEKLY TEAM CONFERENCE - Bladder Same accident frequency: 7-Ind - No accidents in the past 7 days - Bowel Same accident frequency: 7-Ind - No accidents in the past 7 days - Walking Same score based on distance walked: 0(N/A) - Wheelchair Same score based on distance traveled: 0(N/A) FUNCTIONAL STATUS: - Self-Care A. Eating Ind B. Grooming Ind C. Bathing [place] D. Dressing - Upper sup E. Dressing - Lower [place] F. Toileting [place] - Sphincter Control G. Bladder control Jefferson H. Bowel control Jefferson - Transfers Control I. Bed/Chair/Wheelchair sup J. Toilet [place] K. Tub/Shower [place] - Locomotion L. Walk/Wheelchair (B) [place] M. Stairs maxA - Communication N. Comprehension (B) sup O. Expression (B) sup - Social Cognition P. Social Interaction Ind Q. Problem Solving Ind R. Memory sup - Endurance Good - Balance Good - Safety Awareness Good QI SCORES: - Self-Care A. Eating 04-Supervision or touching assistance B. Oral hygiene 04-Supervision or touching assistance C. Toileting hygiene 03-Partial/moderate assistance E. Shower/bathe self 03-Partial/moderate assistance F. Upper body dressing 03-Partial/moderate assistance G. Lower body dressing 03-Partial/moderate assistance H. Putting on/taking off footwear 03-Partial/moderate assistance - Mobility A. Roll left and right 03-Partial/moderate assistance B. Sit to lying 03-Partial/moderate assistance C. Lying to sitting on side of bed 88-Not attempted due to medical condition or safety concerns D. Sit to stand 03-Partial/moderate assistance E. Chair/[id number]-zc-[id number] transfer 03-Partial/moderate assistance F. Toilet transfer 03-Partial/moderate assistance G. Car transfer 88-Not attempted due to medical condition or safety concerns I. Walk 10 feet 03-Partial/moderate assistance J. Walk 50 feet with two turns 88-Not attempted due to medical condition or safety concerns K. Walk 150 feet 88-Not attempted due to medical condition or safety concerns L. Walking 10 feet on uneven surfaces 88-Not attempted due to medical condition or safety concerns M. 1 step (curb) 88-Not attempted due to medical condition or safety concerns N. 4 steps 88-Not attempted due to medical condition or safety concerns O. 12 steps 88-Not attempted due to medical condition or safety concerns P. Picking up object 88-Not attempted due to medical condition or safety concerns R. Wheel 50 feet with two turns 88-Not attempted due to medical condition or safety concerns S. Wheel 150 feet 88-Not attempted due to medical condition or safety concerns - Bladder and Bowel Bladder continence 0-Always continent Bowel continence 0-Always continent - Endurance Fair - Balance Fair - Safety Awareness Fair [facility] DEFICITS: Self-Care, Mobility, Endurance, Balance, and Safety Awareness SIGNATURE PANEL: (MEDIA LIAISON OFFICER)
[2019-04-26] MEDS: MELATONIN 3 MG TABLET PO PRN (20:57)
[2019-04-27] MEDS: OXYCODONE HCL 5 MG TAB PO PRN ×2 (02:46→14:35)
[2019-04-27] MEDS: PROMOD 30 ML DOSE PO SCH ×2 (08:00→20:00)
[2019-04-27] MEDS: LACTULOSE 20 GM/30 ML UCUP PO SCH ×2 (08:58→20:11)
[2019-04-27] MEDS: PANTOPRAZOLE 40MG TABLET PO SCH ×2 (08:59→16:59)
[2019-04-27] MEDS: GABAPENTIN 300 MG CAP PO SCH ×2 (08:59→20:13)
[2019-04-27] MEDS: MAGNESIUM OXIDE 400 MG TAB PO SCH ×2 (08:59→20:12)
[2019-04-27] MEDS: FOLBIC 1 TAB PO SCH (08:59)
[2019-04-27] MEDS: FERROUS SULFATE 325 MG TAB PO SCH (09:00)
[2019-04-27] MEDS: FUROSEMIDE 20 MG TABLET PO SCH ×2 (09:00→16:59)
[2019-04-27] MEDS: FE SULF/FA/VIT B COMP & C TAB PO SCH (09:00)
[2019-04-27] MEDS: SPIRONOLACTONE 25 MG TABLET PO SCH ×2 (09:01→16:59)
[2019-04-27] MEDS: OXYCODONE *CR* 20 MG TAB PO SCH ×2 (09:01→20:12)
[2019-04-27] MEDS: Rifaximin 550 MG Tab PO SCH ×2 (09:02→20:12)
[2019-04-27] MEDS: metroNIDAZOLE 500 MG TABLET PO SCH ×3 (09:02→20:13)
[2019-04-27] MEDS: CEFEPIME/SWI 1gm 10 ML IV SCH (09:33)
--- NOTE | 2019-04-27 11:06 | FAST ---
SHIFT START DATE/TIME: 04/26/2019 07:00 (CADMIUM LIQUOR MAKER) SHIFT END DATE/TIME: 04/26/2019 19:00 (CADMIUM LIQUOR MAKER) NAME JANNET PARADA DATE OF : 1955 DATE OF ADMISSION: 04/21/2019 22:04 (CADMIUM LIQUOR MAKER) PHONE: AGE: 63 SSN# [id number] GENDER: Male ENCOUNTER PHYSICIAN: Dr. Calin Chung M.D. ADMISSION DIAGNOSIS: - Debility 16 - Debility (16) Decompensated Liver Cirrhosis . EATING: EATING - STEP 1: Does the patient complete the activity by him/herself with no assistance (physical, verbal/nonverbal cueing, setup/clean-up)? Yes. 1. [id number] ADMISSION PERFORMANCE: Independent CODE: 06 ORAL HYGIENE: Not assessed/no information CODE: - TOILETING HYGIENE: TOILETING HYGIENE - STEP 1: Does the patient complete the activity by him/herself with no assistance (physical, verbal/nonverbal cueing, setup/clean-up)? No. TOILETING HYGIENE - STEP 2: Does the patient need only setup/clean-up assistance from one helper? Yes. 1. [id number] ADMISSION PERFORMANCE: Setup or clean-up assistance CODE: 05 BATHING: Not assessed/no information CODE: - DRESSING - UPPER BODY: DRESSING - UPPER BODY - STEP 1: Does the patient complete the activity by him/herself with no assistance (physical, verbal/nonverbal cueing, setup/clean-up)? Yes. 1. [id number] ADMISSION PERFORMANCE: Independent CODE: 06 DRESSING - LOWER BODY: DRESSING - LOWER BODY - STEP 1: Does the patient complete the activity by him/herself with no assistance (physical, verbal/nonverbal cueing, setup/clean-up)? No. DRESSING - LOWER BODY - STEP 2: Does the patient need only setup/clean-up assistance from one helper? No. DRESSING - LOWER BODY - STEP 3: Does the patient need only verbal/nonverbal cueing or touching/steadying/contact guard assistance fro m one helper? Yes. 1. [id number] ADMISSION PERFORMANCE: Supervision or touching assistance CODE: 04 PUTTING ON/TAKING OFF FOOTWEAR: FOOTWEAR - STEP 1: Does the patient complete the activity by him/herself with no assistance (physical, verbal/nonverbal cueing, setup/clean-up)? No. FOOTWEAR - STEP 2: Does the patient need only setup/clean-up assistance from one helper? No. FOOTWEAR - STEP 3: Does the patient need only verbal/nonverbal cueing or touching/steadying/contact guard assistance fro m one helper? Yes. 1. [id number] ADMISSION PERFORMANCE: Supervision or touching assistance CODE: 04 DOES THE PATIENT USE A WHEELCHAIR/SCOOTER? CODE: EXPR INDICATE THE TYPE OF WHEELCHAIR/SCOOTER USED: CODE: EXPR INDICATE THE TYPE OF WHEELCHAIR/SCOOTER USED: CODE: EXPR BLADDER AND BOWEL: H350. BLADDER CONTINENCE (3-DAY ASSESSMENT PERIOD): Incontinent less than daily (e.g., once or twice during the 3-day assessment period) CODE: 2 H400. BOWEL CONTINENCE (3-DAY ASSESSMENT PERIOD): Always continent CODE: 0 SIGNATURE PANEL: The following modified sections: 1. [id number] Admission Performance, 1. [id number] Admission Performance, 1. [id number] Admission Performance, 1. [id number] Admission Performance, 1. [id number] Admission Performance, H400. Bowel Continence (3-day assessment period), H350. Bladder Continence (3-day assessment period) were [electronically] signed by Berenice Thorne C.N.A. on FriApr 27 2019 11:05:47 GMT-0600 ([place] Time)
[2019-04-27] MEDS: ONDANSETRON 4 MG (ODT) TAB PO PRN ×2 (12:20→20:16)
[2019-04-27] MEDS ORDERED: CEFEPIME/SWI 1gm 10 ML IV SCH (20:00)
[2019-04-27] MEDS: CEFEPIME/SWI 1gm 10 ML IVP SCH (20:12)
[2019-04-28] MEDS: OXYCODONE HCL 5 MG TAB PO PRN ×2 (01:58→14:01)
[2019-04-28] MEDS: CEFEPIME/SWI 1gm 10 ML IVP SCH ×2 (07:28→20:45)
[2019-04-28] MEDS: PANTOPRAZOLE 40MG TABLET PO SCH ×2 (07:28→16:29)
[2019-04-28] MEDS: HOME MED 1 EA UNK TOP PRN (07:29)
[2019-04-28] MEDS: Rifaximin 550 MG Tab PO SCH ×2 (07:29→20:42)
[2019-04-28] MEDS: LACTULOSE 20 GM/30 ML UCUP PO SCH ×2 (07:29→20:38)
[2019-04-28] MEDS: FERROUS SULFATE 325 MG TAB PO SCH (07:29)
[2019-04-28] MEDS: ONDANSETRON 4 MG (ODT) TAB PO PRN ×2 (07:30→20:48)
[2019-04-28] MEDS: GABAPENTIN 300 MG CAP PO SCH ×2 (07:30→20:43)
[2019-04-28] MEDS: FE SULF/FA/VIT B COMP & C TAB PO SCH (07:31)
[2019-04-28] MEDS: MAGNESIUM OXIDE 400 MG TAB PO SCH ×2 (07:31→20:42)
[2019-04-28] MEDS: FOLBIC 1 TAB PO SCH (07:31)
[2019-04-28] MEDS: OXYCODONE *CR* 20 MG TAB PO SCH ×2 (07:32→20:44)
[2019-04-28] MEDS: PROMOD 30 ML DOSE PO SCH ×2 (07:34→20:00)
[2019-04-28] MEDS: metroNIDAZOLE 500 MG TABLET PO SCH ×3 (08:34→20:46)
[2019-04-28] MEDS: SPIRONOLACTONE 25 MG TABLET PO SCH ×2 (08:34→16:29)
[2019-04-28] MEDS: FUROSEMIDE 20 MG TABLET PO SCH ×2 (08:34→16:35)
--- NOTE | 2019-04-28 16:21 | FAST ---
ENCOUNTER DATE AND TIME: 04/28/2019 08:00 (BIOMEDICAL SCIENTIST) NAME JANNET PARADA DATE OF : 1955 DATE OF ADMISSION: 04/21/2019 22:04 (BIOMEDICAL SCIENTIST) PHONE: AGE: 63 N# [id number] GENDER: Male ENCOUNTER PHYSICIAN: Dr. Calin Chung M.D. ADMISSION DIAGNOSIS: - Debility 16 - Debility (16) Decompensated Liver Cirrhosis . EATING: Not assessed/no information CODE: - ORAL HYGIENE: ORAL HYGIENE - STEP 1: Does the patient complete the activity by him/herself with no assistance (physical, verbal/nonverbal cueing, setup/clean-up)? Yes. 1. [id number] ADMISSION PERFORMANCE: Independent CODE: 06 TOILETING HYGIENE: Not assessed/no information CODE: - BATHING: SHOWER/BATHE SELF - STEP 1: Does the patient complete the activity by him/herself with no assistance (physical, verbal/nonverbal cueing, setup/clean-up)? No. SHOWER/BATHE SELF - STEP 2: Does the patient need only setup/clean-up assistance from one helper? No. SHOWER/BATHE SELF - STEP 3: Does the patient need only verbal/nonverbal cueing or touching/steadying/contact guard assistance fro m one helper? Yes. 1. [id number] ADMISSION PERFORMANCE: Supervision or touching assistance CODE: 04 DRESSING - UPPER BODY: DRESSING - UPPER BODY - STEP 1: Does the patient complete the activity by him/herself with no assistance (physical, verbal/nonverbal cueing, setup/clean-up)? Yes. 1. [id number] ADMISSION PERFORMANCE: Independent CODE: 06 DRESSING - LOWER BODY: DRESSING - LOWER BODY - STEP 1: Does the patient complete the activity by him/herself with no assistance (physical, verbal/nonverbal cueing, setup/clean-up)? No. DRESSING - LOWER BODY - STEP 2: Does the patient need only setup/clean-up assistance from one helper? No. DRESSING - LOWER BODY - STEP 3: Does the patient need only verbal/nonverbal cueing or touching/steadying/contact guard assistance fro m one helper? Yes. 1. [id number] ADMISSION PERFORMANCE: Supervision or touching assistance CODE: 04 PUTTING ON/TAKING OFF FOOTWEAR: FOOTWEAR - STEP 1: Does the patient complete the activity by him/herself with no assistance (physical, verbal/nonverbal cueing, setup/clean-up)? Yes. 1. [id number] ADMISSION PERFORMANCE: Independent CODE: 06 DOES THE PATIENT USE A WHEELCHAIR/SCOOTER? CODE: EXPR INDICATE THE TYPE OF WHEELCHAIR/SCOOTER USED: CODE: EXPR INDICATE THE TYPE OF WHEELCHAIR/SCOOTER USED: CODE: EXPR BLADDER AND BOWEL: CODE: EXPR CODE: EXPR SIGNATURE PANEL: The following modified sections: 1. [id number] Admission Performance, 1. [id number] Admission Performance, 1. [id number] Admission Performance, 1. [id number] Admission Performance, 1. [id number] Admission Performance were [electronically] signed by SAVANNAH George on FriApr 28 2019 16:20:34 GMT-0600 (Central Standard Time)
--- NOTE | 2019-04-28 16:34 | R.PN ---
ENCOUNTER DATE AND TIME: 04/27/2019 16:29 (BELL ATTENDANT) NAME JANNET PARADA DATE OF : 1955 DATE OF ADMISSION: 04/21/2019 22:04 (BELL ATTENDANT) Decompensated Liver Cirrhosis CHIEF COMPLAINT: Debility and liver cirrhosis. SUBJECTIVE: Pt denied any depression. Pt denied any Shortness of Breath. Ambulated 1000' using a rolling walker with standby assistance. Up and down 15 steps with standby ass istance. WBC 1.3 likely secondary to chronic cirrhosis. VITAL SIGNS Temperature: 97.4 F SBP/DBP: 111/59 Pulse: 85 Resp: 14 MEDICATION ALLERGIES: No Known Drug Allergies (NKDA) ENVIRONMENTAL ALLERGIES: Shellfish - Substance Allergies None Known - Other Allergies None Known NURSING: - Shower allowing shower ACTIVITIES OOB only with supervision THERAPIES: - Dietary and Nutrition Adequate Nutrition. Nutritional Education. Nutritional Supplements. PHYSICAL EXAM - Gen Alert and awake Lying in bed No apparent distress Oriented to: person, time, and place - Skin No skin breakdown. Normacephalic - Eyes No abnormalities - ENMT No abnormalities - Neck No abnormalities No cervical adenopathy - CVS RRR - Chest No abnormalities - Resp Clear to auscultation - Abd Soft - GI Non distended Deferred - No abnormalities - Ext Mild bilateral lower extremity edema. - MSK 4+/5 weakness in both lower extremities. - Neuro No focal deficits - Psych No abnormalities ASSESSMENT: Pt. is a 63 yo Right-handed white male.On 04/09/2019 he was admitted to [facility] with diagnosis Decompensated Liver Cirrhosis .His impairment category is Debility 16 - Debil ity (16).Pre-morbidly, Pt. was independent/mod-I in Transfers Control, Safety Awareness, Locomotion, Balance, Social Cognition, Sphincter Control, Self-Care, and Endurance; and he had good Safety Awaren ess.Currently, he has deficits of Locomotion, Balance, Transfers Control, Self-Care, and Endurance.Pt . is now referred to [facility] for acute in-patient rehabilitation in order t o maximize patient's functional independence in activities of daily living, strength, ROM, and mobili ty.- Rehab Goal Patient has realistic goal of being discharged at assistance level 6-[place] to reside at Home with Fam rubén/Relatives. MDM/PLAN: - Physical Therapy Gait dysfunction - to improve, our physical therapists will perform initial evaluation of pt's statu s upon admission and devise an individualized program for Gait Training, and Wheel Chair mobility Inability to transfer - to improve, our physical therapists will perform initial evaluation of pt's status upon admission and devise an individualized program for Bed mobility Need for home safety evaluation - to improve, our physical therapists will perform initial evaluatio n of pt's status upon admission and devise an individualized program for Home Evaluation Need in caregiver upon discharge - to improve, our physical therapists will perform initial evaluati on of pt's status upon admission and devise an individualized program for Caregiver Training Edema - to improve, our physical therapists will perform initial evaluation of pt's status upon admi ssion and devise an individualized program for Elevation Training, and Lymphedema Therapy New precaution - to improve, our physical therapists will perform initial evaluation of pt's status upon admission and devise an individualized program for Patient precaution education Poor balance - to improve, our physical therapists will perform initial evaluation of pt's status up on admission and devise an individualized program for Balance Training Poor endurance - to improve, our physical therapists will perform initial evaluation of pt's status upon admission and devise an individualized program for Endurance Training Weakness - to improve, our physical therapists will perform initial evaluation of pt's status upon a dmission and devise an individualized program for Aquatic Therapy, Neuromuscular Reeducation, and Str engthening Achieving independence - to improve, our physical therapists will perform initial evaluation of pt's status upon admission and devise an individualized program for Community Reintegration Activities - Occupational Therapy ADL deficits - to improve, our occupation therapists will perform initial evaluation of pt's status upon admission and devise an individualized program for Bathing, Bed mobility, Community Reintegratio n, Cooking, Dressing, Eating, Fine Motor Skills, Grooming, Homemaking, Kitchen Mobility, Laundry, Pat ient Education, Safety Awareness, Splinting - Positioning, Transfers(Toilet, Tub, Shower), and Wheel Chair Management Need for director medicare sales - to improve, our occupation therapists will perform initial evaluation of pt's status upon admission and devise an individualized program for Caregiver Training Weakness - to improve, our occupation therapists will perform initial evaluation of pt's status upon admission and devise an individualized program for Aquatic Therapy, Balance, Endurance, UE ROM, and UE strengthening - Other See attached MAR (Medication Administration Record) - Diet Type Continue Regular - Diet - Liquid Texture Continue Regular - Tube Feed Continue N/A - Diet - Solid Texture Continue Regular - Shower allowing shower FUNCTIONAL STATUS: UPDATED AT WEEKLY TEAM CONFERENCE - Bladder Same accident frequency: 7-Ind - No accidents in the past 7 days - Bowel Same accident frequency: 7-Ind - No accidents in the past 7 days - Walking Same score based on distance walked: 0(N/A) - Wheelchair Same score based on distance traveled: 0(N/A) FUNCTIONAL STATUS: - Self-Care A. Eating Ind B. Grooming Ind C. Bathing [place] D. Dressing - Upper sup E. Dressing - Lower [place] F. Toileting [place] - Sphincter Control G. Bladder control Jefferson H. Bowel control [place] - Transfers Control I. Bed/Chair/Wheelchair sup J. Toilet [place] K. Tub/Shower [place] - Locomotion L. Walk/Wheelchair (B) [place] M. Stairs maxA - Communication N. Comprehension (B) sup O. Expression (B) sup - Social Cognition P. Social Interaction Ind Q. Problem Solving Ind R. Memory sup - Endurance Good - Balance Good - Safety Awareness Good QI SCORES: - Self-Care A. Eating 04-Supervision or touching assistance B. Oral hygiene 04-Supervision or touching assistance C. Toileting hygiene 03-Partial/moderate assistance E. Shower/bathe self 03-Partial/moderate assistance F. Upper body dressing 03-Partial/moderate assistance G. Lower body dressing 03-Partial/moderate assistance H. Putting on/taking off footwear 03-Partial/moderate assistance - Mobility A. Roll left and right 03-Partial/moderate assistance B. Sit to lying 03-Partial/moderate assistance C. Lying to sitting on side of bed 88-Not attempted due to medical condition or safety concerns D. Sit to stand 03-Partial/moderate assistance E. Chair/[id number]-gn-lyyno transfer 03-Partial/moderate assistance F. Toilet transfer 03-Partial/moderate assistance G. Car transfer 88-Not attempted due to medical condition or safety concerns I. Walk 10 feet 03-Partial/moderate assistance J. Walk 50 feet with two turns 88-Not attempted due to medical condition or safety concerns K. Walk 150 feet 88-Not attempted due to medical condition or safety concerns L. Walking 10 feet on uneven surfaces 88-Not attempted due to medical condition or safety concerns M. 1 step (curb) 88-Not attempted due to medical condition or safety concerns N. 4 steps 88-Not attempted due to medical condition or safety concerns O. 12 steps 88-Not attempted due to medical condition or safety concerns P. Picking up object 88-Not attempted due to medical condition or safety concerns R. Wheel 50 feet with two turns 88-Not attempted due to medical condition or safety concerns S. Wheel 150 feet 88-Not attempted due to medical condition or safety concerns - Bladder and Bowel Bladder continence 0-Always continent Bowel continence 0-Always continent - Endurance Fair - Balance Fair - Safety Awareness Fair [facility] DEFICITS: Self-Care, Mobility, Endurance, Balance, and Safety Awareness SIGNATURE PANEL: (BELL ATTENDANT)
--- NOTE | 2019-04-28 21:48 | R.PN ---
ENCOUNTER DATE AND TIME: 04/28/2019 21:44 (GROUP PRACTICE PEDIATRICIAN) NAME JANNET PARADA DATE OF : 1955 DATE OF ADMISSION: 04/21/2019 22:04 (GROUP PRACTICE PEDIATRICIAN) Decompensated Liver Cirrhosis CHIEF COMPLAINT: Debility and liver cirrhosis. SUBJECTIVE: Pt denied any depression. Pt denied any Shortness of Breath. Ambulated 1000' using a rolling walker with standby assistance. Up and down 15 steps with standby ass istance. VITAL SIGNS Temperature: 97.6 F SBP/DBP: 115/78 Pulse: 79 Resp: 14 MEDICATION ALLERGIES: No Known Drug Allergies (NKDA) ENVIRONMENTAL ALLERGIES: Shellfish - Substance Allergies None Known - Other Allergies None Known NURSING: - Shower allowing shower ACTIVITIES OOB only with supervision THERAPIES: - Dietary and Nutrition Adequate Nutrition. Nutritional Education. Nutritional Supplements. PHYSICAL EXAM - Gen Alert and awake Lying in bed No apparent distress Oriented to: person, time, and place - Skin No skin breakdown. Normacephalic - Eyes No abnormalities - ENMT No abnormalities - Neck No abnormalities No cervical adenopathy - CVS RRR - Chest No abnormalities - Resp Clear to auscultation - Abd Soft - GI Non distended Deferred - No abnormalities - Ext Mild bilateral lower extremity edema. - MSK 4+/5 weakness in both lower extremities. - Neuro No focal deficits - Psych No abnormalities ASSESSMENT: Pt. is a 63 yo Right-handed white male.On 04/09/[address] [facility] with diagnosis Decompensated Liver Cirrhosis .His impairment category is Debility 16 - Debil ity (16).Pre-morbidly, Pt. was independent/mod-I in Transfers Control, Safety Awareness, Locomotion, Balance, Social Cognition, Sphincter Control, Self-Care, and Endurance; and he had good Safety Awaren ess.Currently, he has deficits of Locomotion, Balance, Transfers Control, Self-Care, and Endurance.Pt . is now referred to [facility] for acute in-patient rehabilitation in order t o maximize patient's functional independence in activities of daily living, strength, ROM, and mobili ty.- Rehab Goal Patient has realistic goal of being discharged at assistance level 6-[place] to reside at Home with Fam rubén/Relatives. MDM/PLAN: - Physical Therapy Gait dysfunction - to improve, our physical therapists will perform initial evaluation of pt's statu s upon admission and devise an individualized program for Gait Training, and Wheel Chair mobility Inability to transfer - to improve, our physical therapists will perform initial evaluation of pt's status upon admission and devise an individualized program for Bed mobility Need for home safety evaluation - to improve, our physical therapists will perform initial evaluatio n of pt's status upon admission and devise an individualized program for Home Evaluation Need in caregiver upon discharge - to improve, our physical therapists will perform initial evaluati on of pt's status upon admission and devise an individualized program for Caregiver Training Edema - to improve, our physical therapists will perform initial evaluation of pt's status upon admi ssion and devise an individualized program for Elevation Training, and Lymphedema Therapy New precaution - to improve, our physical therapists will perform initial evaluation of pt's status upon admission and devise an individualized program for Patient precaution education Poor balance - to improve, our physical therapists will perform initial evaluation of pt's status up on admission and devise an individualized program for Balance Training Poor endurance - to improve, our physical therapists will perform initial evaluation of pt's status upon admission and devise an individualized program for Endurance Training Weakness - to improve, our physical therapists will perform initial evaluation of pt's status upon a dmission and devise an individualized program for Aquatic Therapy, Neuromuscular Reeducation, and Str engthening Achieving independence - to improve, our physical therapists will perform initial evaluation of pt's status upon admission and devise an individualized program for Community Reintegration Activities - Occupational Therapy ADL deficits - to improve, our occupation therapists will perform initial evaluation of pt's status upon admission and devise an individualized program for Bathing, Bed mobility, Community Reintegratio n, Cooking, Dressing, Eating, Fine Motor Skills, Grooming, Homemaking, Kitchen Mobility, Laundry, Pat ient Education, Safety Awareness, Splinting - Positioning, Transfers(Toilet, Tub, Shower), and Wheel Chair Management Need for pulmonary care nurse - to improve, our occupation therapists will perform initial evaluation of pt's status upon admission and devise an individualized program for Caregiver Training Weakness - to improve, our occupation therapists will perform initial evaluation of pt's status upon admission and devise an individualized program for Aquatic Therapy, Balance, Endurance, UE ROM, and UE strengthening - Other See attached MAR (Medication Administration Record) - Diet Type Continue Regular - Diet - Liquid Texture Continue Regular - Tube Feed Continue N/A - Diet - Solid Texture Continue Regular - Shower allowing shower FUNCTIONAL STATUS: UPDATED AT WEEKLY TEAM CONFERENCE - Bladder Same accident frequency: 7-Ind - No accidents in the past 7 days - Bowel Same accident frequency: 7-Ind - No accidents in the past 7 days - Walking Same score based on distance walked: 0(N/A) - Wheelchair Same score based on distance traveled: 0(N/A) FUNCTIONAL STATUS: - Self-Care A. Eating Ind B. Grooming Ind C. Bathing [place] D. Dressing - Upper sup E. Dressing - Lower [place] F. Toileting [place] - Sphincter Control G. Bladder control [place] H. Bowel control [place] - Transfers Control I. Bed/Chair/Wheelchair sup J. Toilet [place] K. Tub/Shower [place] - Locomotion L. Walk/Wheelchair (B) [place] M. Stairs maxA - Communication N. Comprehension (B) sup O. Expression (B) sup - Social Cognition P. Social Interaction Ind Q. Problem Solving Ind R. Memory sup - Endurance Good - Balance Good - Safety Awareness Good QI SCORES: - Self-Care A. Eating 04-Supervision or touching assistance B. Oral hygiene 04-Supervision or touching assistance C. Toileting hygiene 03-Partial/moderate assistance E. Shower/bathe self 03-Partial/moderate assistance F. Upper body dressing 03-Partial/moderate assistance G. Lower body dressing 03-Partial/moderate assistance H. Putting on/taking off footwear 03-Partial/moderate assistance - Mobility A. Roll left and right 03-Partial/moderate assistance B. Sit to lying 03-Partial/moderate assistance C. Lying to sitting on side of bed 88-Not attempted due to medical condition or safety concerns D. Sit to stand 03-Partial/moderate assistance E. Chair/rnl-[id number] transfer 03-Partial/moderate assistance F. Toilet transfer 03-Partial/moderate assistance G. Car transfer 88-Not attempted due to medical condition or safety concerns I. Walk 10 feet 03-Partial/moderate assistance J. Walk 50 feet with two turns 88-Not attempted due to medical condition or safety concerns K. Walk 150 feet 88-Not attempted due to medical condition or safety concerns L. Walking 10 feet on uneven surfaces 88-Not attempted due to medical condition or safety concerns M. 1 step (curb) 88-Not attempted due to medical condition or safety concerns N. 4 steps 88-Not attempted due to medical condition or safety concerns O. 12 steps 88-Not attempted due to medical condition or safety concerns P. Picking up object 88-Not attempted due to medical condition or safety concerns R. Wheel 50 feet with two turns 88-Not attempted due to medical condition or safety concerns S. Wheel 150 feet 88-Not attempted due to medical condition or safety concerns - Bladder and Bowel Bladder continence 0-Always continent Bowel continence 0-Always continent - Endurance Fair - Balance Fair - Safety Awareness Fair [facility] DEFICITS: Self-Care, Mobility, Endurance, Balance, and Safety Awareness SIGNATURE PANEL: (GROUP PRACTICE PEDIATRICIAN)
[2019-04-29] MEDS: OXYCODONE HCL 5 MG TAB PO PRN ×2 (02:11→13:30)
[2019-04-29 06:32] LABS: Absolute Lymphocytes (CBC) 0.2 K/uL (0.7-4.9); Basophils % 0.7 % (0-1.3); Hematocrit 26.9 % (39.6-49.0); Lymphocytes % 9.3 % (15.3-44.8); MPV 8.7 fL (7.6-11.3); RBC Red Blood Cell Count 2.98 M/uL (4.33-5.43)
[2019-04-29] MEDS: PANTOPRAZOLE 40MG TABLET PO SCH ×2 (07:23→16:18)
[2019-04-29] MEDS: LACTULOSE 20 GM/30 ML UCUP PO SCH ×3 (07:23→20:00)
[2019-04-29] MEDS: MAGNESIUM OXIDE 400 MG TAB PO SCH ×2 (07:23→19:50)
[2019-04-29] MEDS: FERROUS SULFATE 325 MG TAB PO SCH (07:24)
[2019-04-29] MEDS: FUROSEMIDE 20 MG TABLET PO SCH ×2 (07:24→16:19)
[2019-04-29] MEDS: metroNIDAZOLE 500 MG TABLET PO SCH (07:24)
[2019-04-29] MEDS: GABAPENTIN 300 MG CAP PO SCH ×2 (07:24→19:50)
[2019-04-29] MEDS: FE SULF/FA/VIT B COMP & C TAB PO SCH (07:24)
[2019-04-29] MEDS: FOLBIC 1 TAB PO SCH (07:24)
[2019-04-29] MEDS: SPIRONOLACTONE 25 MG TABLET PO SCH ×2 (07:25→16:19)
[2019-04-29] MEDS: OXYCODONE *CR* 20 MG TAB PO SCH ×2 (07:25→19:49)
[2019-04-29] MEDS: Rifaximin 550 MG Tab PO SCH ×2 (07:26→19:50)
[2019-04-29 07:31] LABS: Albumin 2.9 g/dL (3.4-5.0); Magnesium 1.8 mg/dL (1.8-2.4); Potassium 4.6 mmol/L (3.5-5.1); Prealbumin 5.4 mg/dL (20-40)
[2019-04-29] MEDS: ONDANSETRON 4 MG (ODT) TAB PO PRN ×2 (07:34→19:50)
[2019-04-29] MEDS: CEFEPIME/SWI 1gm 10 ML IVP SCH ×2 (07:38→19:49)
[2019-04-29] MEDS: PROMOD 30 ML DOSE PO SCH ×2 (08:00→19:51)
--- NOTE | 2019-04-29 15:57 | FAST ---
ENCOUNTER DATE AND TIME: 04/29/2019 08:00 (AGENT TELEGRAPHER) NAME JANNET PARADA DATE OF : 1955 DATE OF ADMISSION: 04/21/2019 22:04 (AGENT TELEGRAPHER) PHONE: AGE: 63 N# [id number] GENDER: Male ENCOUNTER PHYSICIAN: Dr. Calin Chung M.D. ADMISSION DIAGNOSIS: - Debility 16 - Debility (16) Decompensated Liver Cirrhosis . ROLL LEFT AND RIGHT: ROLL LEFT AND RIGHT - STEP 1: Does the patient complete the activity by him/herself with no assistance (physical, verbal/nonverbal cueing, setup/clean-up)? No. ROLL LEFT AND RIGHT - STEP 2: Does the patient need only setup/clean-up assistance from one helper? Yes. 1. [id number] ADMISSION PERFORMANCE: Setup or clean-up assistance CODE: 05 SIT TO LYING: SIT TO LYING - STEP 1: Does the patient complete the activity by him/herself with no assistance (physical, verbal/nonverbal cueing, setup/clean-up)? No. SIT TO LYING - STEP 2: Does the patient need only setup/clean-up assistance from one helper? Yes. 1. [id number] ADMISSION PERFORMANCE: Setup or clean-up assistance CODE: 05 LYING TO SITTING: LYING TO SITTING ON SIDE OF BED - STEP 1: Does the patient complete the activity by him/herself with no assistance (physical, verbal/nonverbal cueing, setup/clean-up)? No. LYING TO SITTING ON SIDE OF BED - STEP 2: Does the patient need only setup/clean-up assistance from one helper? Yes. 1. [id number] ADMISSION PERFORMANCE: Setup or clean-up assistance CODE: 05 SIT TO STAND: SIT TO STAND - STEP 1: Does the patient complete the activity by him/herself with no assistance (physical, verbal/nonverbal cueing, setup/clean-up)? No. SIT TO STAND - STEP 2: Does the patient need only setup/clean-up assistance from one helper? Yes. 1. [id number] ADMISSION PERFORMANCE: Setup or clean-up assistance CODE: 05 TRANSFERS: BED, CHAIR: CHAIR/[id number] TRANSFER - STEP 1: Does the patient complete the activity by him/herself with no assistance (physical, verbal/nonverbal cueing, setup/clean-up)? No. CHAIR/[id number] TRANSFER - STEP 2: Does the patient need only setup/clean-up assistance from one helper? Yes. 1. [id number] ADMISSION PERFORMANCE: Setup or clean-up assistance CODE: 05 TRANSFER TOILET: TOILET TRANSFER - STEP 1: Does the patient complete the activity by him/herself with no assistance (physical, verbal/nonverbal cueing, setup/clean-up)? No. TOILET TRANSFER - STEP 2: Does the patient need only setup/clean-up assistance from one helper? Yes. 1. [id number] ADMISSION PERFORMANCE: Setup or clean-up assistance CODE: 05 TRANSFERS: CAR: Not attempted due to environmental limitations (e.g., lack of equipment, weather constraints) CODE: 10 WALK 10 FEET: WALK 10 FEET - STEP 1: Does the patient complete the activity by him/herself with no assistance (physical, verbal/nonverbal cueing, setup/clean-up)? No. WALK 10 FEET - STEP 2: Does the patient need only setup/clean-up assistance from one helper? Yes. 1. [id number] ADMISSION PERFORMANCE: Setup or clean-up assistance CODE: 05 WALK 50 FEET: WALK 50 FEET - STEP 1: Does the patient complete the activity by him/herself with no assistance (physical, verbal/nonverbal cueing, setup/clean-up)? No. WALK 50 FEET - STEP 2: Does the patient need only setup/clean-up assistance from one helper? Yes. 1. [id number] ADMISSION PERFORMANCE: Setup or clean-up assistance CODE: 05 WALK 150 FEET: WALK 150 FEET - STEP 1: Does the patient complete the activity by him/herself with no assistance (physical, verbal/nonverbal cueing, setup/clean-up)? No. WALK 150 FEET - STEP 2: Does the patient need only setup/clean-up assistance from one helper? Yes. 1. [id number] ADMISSION PERFORMANCE: Setup or clean-up assistance CODE: 05 WALK 10 FEET UNEVEN: Not attempted due to medical condition or safety concerns CODE: 88 1 STEP (CURB): 1 STEP CURB - STEP 1: Does the patient complete the activity by him/herself with no assistance (physical, verbal/nonverbal cueing, setup/clean-up)? No. 1 STEP CURB - STEP 2: Does the patient need only setup/clean-up assistance from one helper? Yes. 1. [id number] ADMISSION PERFORMANCE: Setup or clean-up assistance CODE: 05 4 STEPS: 4 STEPS - STEP 1: Does the patient complete the activity by him/herself with no assistance (physical, verbal/nonverbal cueing, setup/clean-up)? No. 4 STEPS - STEP 2: Does the patient need only setup/clean-up assistance from one helper? Yes. 1. [id number] ADMISSION PERFORMANCE: Setup or clean-up assistance CODE: 05 12 STEPS: 12 STEPS - STEP 1: Does the patient complete the activity by him/herself with no assistance (physical, verbal/nonverbal cueing, setup/clean-up)? No. 12 STEPS - STEP 2: Does the patient need only setup/clean-up assistance from one helper? Yes. 1. [id number] ADMISSION PERFORMANCE: Setup or clean-up assistance CODE: 05 PICKING UP OBJECT: PICKING UP OBJECT - STEP 1: Does the patient complete the activity by him/herself with no assistance (physical, verbal/nonverbal cueing, setup/clean-up)? No. PICKING UP OBJECT - STEP 2: Does the patient need only setup/clean-up assistance from one helper? Yes. 1. [id number] ADMISSION PERFORMANCE: Setup or clean-up assistance CODE: 05 DOES THE PATIENT USE A WHEELCHAIR/SCOOTER? Q1. DOES THE PATIENT USE A WHEELCHAIR/SCOOTER?: No CODE: 0 INDICATE THE TYPE OF WHEELCHAIR/SCOOTER USED: CODE: EXPR INDICATE THE TYPE OF WHEELCHAIR/SCOOTER USED: CODE: EXPR BLADDER AND BOWEL: CODE: EXPR CODE: EXPR SIGNATURE PANEL: The following modified sections: 1. [id number] Admission Performance, 1. [id number] Admission Performance, 1. [id number] Admission Performance, 1. [id number] Admission Performance, 1. [id number] Admission Performance, 1. [id number] Admission Performance, 1. [id number] Admission Performance, 1. [id number] Admission Performance , 1. [id number] Admission Performance, 1. [id number] Admission Performance, 1. [id number] Admission Performanc e, 1. [id number] Admission Performance, 1. [id number] Admission Performance, Q1. Does the patient use a whe elchair/scooter? were [electronically] signed by Luis Roberts PTA on FriApr 29 2019 15:56:04 GMT-0600 (Central Standard Time)
--- NOTE | 2019-04-29 16:14 | RAD REPORT ---
EXAM DESCRIPTION: RAD - Abdomen 1 View (KUB) - 04/29/2019 4:07 pm CLINICAL HISTORY: ascites Pain COMPARISON: No comparisons FINDINGS: The bowel gas pattern is non-obstructive. No evidence of free air or pneumatosis. No suspi cious calcifications. No significant bony findings. IMPRESSION: Negative examination.
[2019-04-29] MEDS: MELATONIN 3 MG TABLET PO PRN (19:50)
--- NOTE | 2019-04-29 20:49 | R.PN ---
ENCOUNTER DATE AND TIME: 04/29/2019 20:46 (JAVA GROOVY DEVELOPER) NAME JANNET PARADA DATE OF : 1955 DATE OF ADMISSION: 04/21/2019 22:04 (JAVA GROOVY DEVELOPER) Decompensated Liver Cirrhosis CHIEF COMPLAINT: Debility and liver cirrhosis. SUBJECTIVE: Pt denied any depression. Pt denied any Shortness of Breath. Ambulated 1000' using a rolling walker with standby assistance. Up and down 15 steps with standby ass istance. VITAL SIGNS Temperature: 97.4 F SBP/DBP: 121/78 Pulse: 82 Resp: 14 MEDICATION ALLERGIES: No Known Drug Allergies (NKDA) ENVIRONMENTAL ALLERGIES: Shellfish - Substance Allergies None Known - Other Allergies None Known NURSING: - Shower allowing shower ACTIVITIES OOB only with supervision THERAPIES: - Dietary and Nutrition Adequate Nutrition. Nutritional Education. Nutritional Supplements. PHYSICAL EXAM - Gen Alert and awake Lying in bed No apparent distress Oriented to: person, time, and place - Skin No skin breakdown. Normacephalic - Eyes No abnormalities - ENMT No abnormalities - Neck No abnormalities No cervical adenopathy - CVS RRR - Chest No abnormalities - Resp Clear to auscultation - Abd Soft - GI Non distended Deferred - No abnormalities - Ext Mild bilateral lower extremity edema. - MSK 4+/5 weakness in both lower extremities. - Neuro No focal deficits - Psych No abnormalities ASSESSMENT: Pt. is a 63 yo Right-handed white male.On 04/09/2019 he was admitted to [facility] with diagnosis Decompensated Liver Cirrhosis .His impairment category is Debility 16 - Debil ity (16).Pre-morbidly, Pt. was independent/mod-I in Transfers Control, Safety Awareness, Locomotion, Balance, Social Cognition, Sphincter Control, Self-Care, and Endurance; and he had good Safety Awaren ess.Currently, he has deficits of Locomotion, Balance, Transfers Control, Self-Care, and Endurance.Pt . is now referred to [facility] for acute in-patient rehabilitation in order t o maximize patient's functional independence in activities of daily living, strength, ROM, and mobili ty.- Rehab Goal Patient has realistic goal of being discharged at assistance level 6-[place] to reside at Home with Fam rubén/Relatives. MDM/PLAN: - Physical Therapy Gait dysfunction - to improve, our physical therapists will perform initial evaluation of pt's statu s upon admission and devise an individualized program for Gait Training, and Wheel Chair mobility Inability to transfer - to improve, our physical therapists will perform initial evaluation of pt's status upon admission and devise an individualized program for Bed mobility Need for home safety evaluation - to improve, our physical therapists will perform initial evaluatio n of pt's status upon admission and devise an individualized program for Home Evaluation Need in caregiver upon discharge - to improve, our physical therapists will perform initial evaluati on of pt's status upon admission and devise an individualized program for Caregiver Training Edema - to improve, our physical therapists will perform initial evaluation of pt's status upon admi ssion and devise an individualized program for Elevation Training, and Lymphedema Therapy New precaution - to improve, our physical therapists will perform initial evaluation of pt's status upon admission and devise an individualized program for Patient precaution education Poor balance - to improve, our physical therapists will perform initial evaluation of pt's status up on admission and devise an individualized program for Balance Training Poor endurance - to improve, our physical therapists will perform initial evaluation of pt's status upon admission and devise an individualized program for Endurance Training Weakness - to improve, our physical therapists will perform initial evaluation of pt's status upon a dmission and devise an individualized program for Aquatic Therapy, Neuromuscular Reeducation, and Str engthening Achieving independence - to improve, our physical therapists will perform initial evaluation of pt's status upon admission and devise an individualized program for Community Reintegration Activities - Occupational Therapy ADL deficits - to improve, our occupation therapists will perform initial evaluation of pt's status upon admission and devise an individualized program for Bathing, Bed mobility, Community Reintegratio n, Cooking, Dressing, Eating, Fine Motor Skills, Grooming, Homemaking, Kitchen Mobility, Laundry, Pat ient Education, Safety Awareness, Splinting - Positioning, Transfers(Toilet, Tub, Shower), and Wheel Chair Management Need for animal care specialist - to improve, our occupation therapists will perform initial evaluation of pt's status upon admission and devise an individualized program for Caregiver Training Weakness - to improve, our occupation therapists will perform initial evaluation of pt's status upon admission and devise an individualized program for Aquatic Therapy, Balance, Endurance, UE ROM, and UE strengthening - Other See attached MAR (Medication Administration Record) - Diet Type Continue Regular - Diet - Liquid Texture Continue Regular - Tube Feed Continue N/A - Diet - Solid Texture Continue Regular - Shower allowing shower FUNCTIONAL STATUS: UPDATED AT WEEKLY TEAM CONFERENCE - Bladder Same accident frequency: 7-Ind - No accidents in the past 7 days - Bowel Same accident frequency: 7-Ind - No accidents in the past 7 days - Walking Same score based on distance walked: 0(N/A) - Wheelchair Same score based on distance traveled: 0(N/A) FUNCTIONAL STATUS: - Self-Care A. Eating Ind B. Grooming Ind C. Bathing [place] D. Dressing - Upper sup E. Dressing - Lower [place] F. Toileting [place] - Sphincter Control G. Bladder control [place] H. Bowel control [place] - Transfers Control I. Bed/Chair/Wheelchair sup J. Toilet [place] K. Tub/Shower [place] - Locomotion L. Walk/Wheelchair (B) [place] M. Stairs maxA - Communication N. Comprehension (B) sup O. Expression (B) sup - Social Cognition P. Social Interaction Ind Q. Problem Solving Ind R. Memory sup - Endurance Good - Balance Good - Safety Awareness Good QI SCORES: - Self-Care A. Eating 04-Supervision or touching assistance B. Oral hygiene 04-Supervision or touching assistance C. Toileting hygiene 03-Partial/moderate assistance E. Shower/bathe self 03-Partial/moderate assistance F. Upper body dressing 03-Partial/moderate assistance G. Lower body dressing 03-Partial/moderate assistance H. Putting on/taking off footwear 03-Partial/moderate assistance - Mobility A. Roll left and right 03-Partial/moderate assistance B. Sit to lying 03-Partial/moderate assistance C. Lying to sitting on side of bed 88-Not attempted due to medical condition or safety concerns D. Sit to stand 03-Partial/moderate assistance E. Chair/lbe-yi-lctwh transfer 03-Partial/moderate assistance F. Toilet transfer 03-Partial/moderate assistance G. Car transfer 88-Not attempted due to medical condition or safety concerns I. Walk 10 feet 03-Partial/moderate assistance J. Walk 50 feet with two turns 88-Not attempted due to medical condition or safety concerns K. Walk 150 feet 88-Not attempted due to medical condition or safety concerns L. Walking 10 feet on uneven surfaces 88-Not attempted due to medical condition or safety concerns M. 1 step (curb) 88-Not attempted due to medical condition or safety concerns N. 4 steps 88-Not attempted due to medical condition or safety concerns O. 12 steps 88-Not attempted due to medical condition or safety concerns P. Picking up object 88-Not attempted due to medical condition or safety concerns R. Wheel 50 feet with two turns 88-Not attempted due to medical condition or safety concerns S. Wheel 150 feet 88-Not attempted due to medical condition or safety concerns - Bladder and Bowel Bladder continence 0-Always continent Bowel continence 0-Always continent - Endurance Fair - Balance Fair - Safety Awareness Fair [facility]IC[facility]: Self-Care, Mobility, Endurance, Balance, and Safety Awareness SIGNATURE PANEL: (JAVA GROOVY DEVELOPER)
[2019-04-30] MEDS: OXYCODONE HCL 5 MG TAB PO PRN ×2 (02:03→12:49)
[2019-04-30] MEDS: CEFEPIME/SWI 1gm 10 ML IVP SCH ×2 (07:09→20:15)
[2019-04-30] MEDS: PROMOD 30 ML DOSE PO SCH ×3 (08:00→20:00)
[2019-04-30] MEDS: LACTULOSE 20 GM/30 ML UCUP PO SCH ×2 (08:50→20:16)
[2019-04-30] MEDS: OXYCODONE *CR* 20 MG TAB PO SCH ×2 (08:51→20:17)
[2019-04-30] MEDS: MAGNESIUM OXIDE 400 MG TAB PO SCH ×2 (08:52→20:17)
[2019-04-30] MEDS: GABAPENTIN 300 MG CAP PO SCH ×2 (08:52→20:17)
[2019-04-30] MEDS: FUROSEMIDE 20 MG TABLET PO SCH ×2 (08:52→17:32)
[2019-04-30] MEDS: FERROUS SULFATE 325 MG TAB PO SCH (08:52)
[2019-04-30] MEDS: Rifaximin 550 MG Tab PO SCH ×2 (08:53→20:15)
[2019-04-30] MEDS: FE SULF/FA/VIT B COMP & C TAB PO SCH (08:53)
[2019-04-30] MEDS: FOLBIC 1 TAB PO SCH (08:53)
[2019-04-30] MEDS: PANTOPRAZOLE 40MG TABLET PO SCH ×2 (08:53→17:32)
[2019-04-30] MEDS: SPIRONOLACTONE 25 MG TABLET PO SCH ×2 (08:54→17:33)
--- NOTE | 2019-04-30 09:57 | P.RH.PN ---
Estimated Length of Stay: 14 Expected Discharge Date: 05/04/19 Discharge Disposition Plan: Home Family Support: Yes Skilled Nursing Goal: Mobility, Transfers, Self Care Vital Signs: Last Vital Signs Temp 99.5 F 04/29/19 20:00 Pulse 74 04/30/19 08:54 Resp 16 04/30/19 08:51 BP 122/67 04/30/19 08:54 Pulse Ox 97 04/30/19 08:51 Laboratory: Laboratory Last Values WBC 1.8 K/uL (4.3-10.9) L* D 04/29/19 05:59 RBC 2.98 M/uL (4.33-5.43) L 04/29/19 05:59 Hgb 9.1 g/dL (13.6-17.9) L 04/29/19 05:59 Hct 26.9 % (39.6-49.0) L 04/29/19 05:59 MCV 90.5 fL (80-100) 04/29/19 05:59 MCH 30.7 pg (27.0-35.0) 04/29/19 05:59 MCHC 33.9 g/dL (32.0-36.0) 04/29/19 05:59 RDW 19.7 % (12.1-15.2) H 04/29/19 05:59 Plt Count 90 K/uL (152-406) L 04/29/19 05:59 MPV 8.7 fL (7.6-11.3) 04/29/19 05:59 Total Counted Cancelled 04/29/19 05:59 Neutrophils % 74.5 % (41.7-73.7) H 04/29/19 05:59 Lymphocytes % 9.3 % (15.3-44.8) L 04/29/19 05:59 Monocytes % 10.6 % (3.3-12.3) 04/29/19 05:59 Eosinophils % 4.9 % (0-4.4) H 04/29/19 05:59 Basophils % 0.7 % (0-1.3) 04/29/19 05:59 Megakaryocytes % Cancelled 04/29/19 05:59 Absolute Neutrophils 1.3 K/uL (1.8-8.0) L 04/29/19 05:59 Segmented Neutrophils Cancelled 04/29/19 05:59 Band Neutrophils Cancelled 04/29/19 05:59 Absolute Lymphocytes 0.2 K/uL (0.7-4.9) L 04/29/19 05:59 Lymphocytes Cancelled 04/29/19 05:59 Monocytes Cancelled 04/29/19 05:59 Absolute Monocytes 0.2 K/uL (0.1-1.3) 04/29/19 05:59 Eosinophils Cancelled 04/29/19 05:59 Absolute Eosinophils 0.1 K/uL (0-0.5) 04/29/19 05:59 Basophils Cancelled 04/29/19 05:59 Absolute Basophils 0.0 K/uL (0-0.5) 04/29/19 05:59 Metamyelocytes Cancelled 04/29/19 05:59 Myelocytes Cancelled 04/29/19 05:59 Promyelocytes Cancelled 04/29/19 05:59 Nucleated RBCs Cancelled 04/29/19 05:59 Hypersegmented Neuts Cancelled 04/29/19 05:59 Hypogranular Neuts Cancelled 04/29/19 05:59 Atypical Lymphocytes Cancelled 04/29/19 05:59 Reactive Lymphocytes Cancelled 04/29/19 05:59 Lymphoblasts Cancelled 04/29/19 05:59 Blast Cells Cancelled 04/29/19 05:59 Immature Blood Cells Cancelled 04/29/19 05:59 Plasma Cells Cancelled 04/29/19 05:59 Smudge Cells Cancelled 04/29/19 05:59 Toxic Granulation Cancelled 04/29/19 05:59 Dohle Bodies Cancelled 04/29/19 05:59 Pelger-Huet Cells Cancelled 04/29/19 05:59 Adrianna Rods Cancelled 04/29/19 05:59 Platelet Estimate Cancelled 04/29/19 05:59 Clumped Platelets Cancelled 04/29/19 05:59 Giant Platelets Cancelled 04/29/19 05:59 Polychromasia Cancelled 04/29/19 05:59 Poikilocytosis 1+ 04/22/19 05:40 Hypochromasia Cancelled 04/29/19 05:59 Anisocytosis 1+ 04/22/19 05:40 Basophilic Stippling Cancelled 04/29/19 05:59 Microcytosis Cancelled 04/29/19 05:59 Macrocytosis Cancelled 04/29/19 05:59 Spherocytes Cancelled 04/29/19 05:59 Sickle Cells Cancelled 04/29/19 05:59 Target Cells Cancelled 04/29/19 05:59 Tear Drop Cells Cancelled 04/29/19 05:59 Ovalocytes Cancelled 04/29/19 05:59 Stomatocytes Cancelled 04/29/19 05:59 [place] Bodies Cancelled 04/29/19 05:59 [place] Cells Cancelled 04/29/19 05:59 Elliptocytes Cancelled 04/29/19 05:59 Rouleaux Cancelled 04/29/19 05:59 Cold Agglutinates Cancelled 04/29/19 05:59 Unidentified Cells Cancelled 04/29/19 05:59 Schistocytes Cancelled 04/29/19 05:59 Morphology Comment Noted (NOT SEEN) 04/22/19 05:40 Sodium 135 mmol/L (136-145) L 04/29/19 05:59 Potassium 4.6 mmol/L (3.5-5.1) 04/29/19 05:59 Chloride 105 mmol/L (98-107) 04/29/19 05:59 Carbon Dioxide 23 mmol/L (21-32) 04/29/19 05:59 BUN 22 mg/dL (7-18) H 04/29/19 05:59 Creatinine 1.78 mg/dL (0.55-1.3) H 04/29/19 05:59 Estimated GFR 39 mL/min (=/>90) L 04/29/19 05:59 Glucose 167 mg/dL (74-106) H 04/29/19 05:59 Calcium 8.0 mg/dL (8.5-10.1) L 04/29/19 05:59 Magnesium 1.8 mg/dL (1.8-2.4) 04/29/19 05:59 Ammonia 20 umol/L (19-54) 04/23/19 05:40 Albumin 2.9 g/dL (3.4-5.0) L 04/29/19 05:59 Prealbumin 5.4 mg/dL (20-40) L 04/29/19 05:59 Urine Color Dk yellow 04/21/19 22:50 Urine Appearance Clear 04/21/19 22:50 Urine pH 5.5 (5.0-7.0) 04/21/19 22:50 Ur Specific [place] 1.015 (1.005-1.030) 04/21/19 22:50 Urine Ketones Trace (NEG) 04/21/19 22:50 Urine Blood Negative (NEG) 04/21/19 22:50 Urine Nitrite Negative (NEG) 04/21/19 22:50 Urine Bilirubin Negative (NEG) 04/21/19 22:50 Urine Urobilinogen 0.2 mg/dL (0.2-1.0) 04/21/19 22:50 Ur Leukocyte Esterase Negative (NEG) 04/21/19 22:50 Urine RBC None seen /HPF (NONE SEEN) 04/21/19 22:50 Urine WBC <5 /HPF (<5) 04/21/19 22:50 Ur Squamous Epith Cells <5 /HPF (NONE SEEN) 04/21/19 22:50 Ur Urothelial Cells <5 /HPF (NONE SEEN) 04/21/19 22:50 Urine Bacteria <20 /HPF (NONE SEEN) 04/21/19 22:50 Urine Mucus Slight /HPF (NONE SEEN) 04/21/19 22:50 Urine Culture Reflexed Not needed 04/21/19 22:50 Urine Glucose Negative (NEG) 04/21/19 22:50 Urine Total Protein 2+ (NEG) H 04/21/19 22:50 Weight: 239 lb 8 oz Wound Present: No Closed Surgical Incision Present: No Negative Pressure Wound Therapy Present: No Physician Update: He is doing well with physical and occupational theapy. His mood is much better. Medical Issues: Patient is always continent with bladder and bowel. Functional Improvement: Patient has met all short-term goals at this time and is progressing well toward long-term goals. Patient is presenting well w/ good technique and overall safety awareness. Summary: Patient's care plan and lobsterman goals have been reviewed and revised as necessary. Please see the Rehabilitation Signature page for all necessary signatures.
--- NOTE | 2019-04-30 10:03 | P.RH.PN ---
Estimated Length of Stay: 14 Expected Discharge Date: 05/04/19 Discharge Disposition Plan: Home Family Support: Yes [facility] Goal: Mobility, Transfers, Self Care Vital Signs: Last Vital Signs Temp 99.5 F 04/29/19 20:00 Pulse 74 04/30/19 08:54 Resp 16 04/30/19 08:51 BP 122/67 04/30/19 08:54 Pulse Ox 97 04/30/19 08:51 Laboratory: Laboratory Last Values WBC 1.8 K/uL (4.3-10.9) L* D 04/29/19 05:59 RBC 2.98 M/uL (4.33-5.43) L 04/29/19 05:59 Hgb 9.1 g/dL (13.6-17.9) L 04/29/19 05:59 Hct 26.9 % (39.6-49.0) L 04/29/19 05:59 MCV 90.5 fL (80-100) 04/29/19 05:59 MCH 30.7 pg (27.0-35.0) 04/29/19 05:59 MCHC 33.9 g/dL (32.0-36.0) 04/29/19 05:59 RDW 19.7 % (12.1-15.2) H 04/29/19 05:59 Plt Count 90 K/uL (152-406) L 04/29/19 05:59 MPV 8.7 fL (7.6-11.3) 04/29/19 05:59 Total Counted Cancelled 04/29/19 05:59 Neutrophils % 74.5 % (41.7-73.7) H 04/29/19 05:59 Lymphocytes % 9.3 % (15.3-44.8) L 04/29/19 05:59 Monocytes % 10.6 % (3.3-12.3) 04/29/19 05:59 Eosinophils % 4.9 % (0-4.4) H 04/29/19 05:59 Basophils % 0.7 % (0-1.3) 04/29/19 05:59 Megakaryocytes % Cancelled 04/29/19 05:59 Absolute Neutrophils 1.3 K/uL (1.8-8.0) L 04/29/19 05:59 Segmented Neutrophils Cancelled 04/29/19 05:59 Band Neutrophils Cancelled 04/29/19 05:59 Absolute Lymphocytes 0.2 K/uL (0.7-4.9) L 04/29/19 05:59 Lymphocytes Cancelled 04/29/19 05:59 Monocytes Cancelled 04/29/19 05:59 Absolute Monocytes 0.2 K/uL (0.1-1.3) 04/29/19 05:59 Eosinophils Cancelled 04/29/19 05:59 Absolute Eosinophils 0.1 K/uL (0-0.5) 04/29/19 05:59 Basophils Cancelled 04/29/19 05:59 Absolute Basophils 0.0 K/uL (0-0.5) 04/29/19 05:59 Metamyelocytes Cancelled 04/29/19 05:59 Myelocytes Cancelled 04/29/19 05:59 Promyelocytes Cancelled 04/29/19 05:59 Nucleated RBCs Cancelled 04/29/19 05:59 Hypersegmented Neuts Cancelled 04/29/19 05:59 Hypogranular Neuts Cancelled 04/29/19 05:59 Atypical Lymphocytes Cancelled 04/29/19 05:59 Reactive Lymphocytes Cancelled 04/29/19 05:59 Lymphoblasts Cancelled 04/29/19 05:59 Blast Cells Cancelled 04/29/19 05:59 Immature Blood Cells Cancelled 04/29/19 05:59 Plasma Cells Cancelled 04/29/19 05:59 Smudge Cells Cancelled 04/29/19 05:59 Toxic Granulation Cancelled 04/29/19 05:59 Dohle Bodies Cancelled 04/29/19 05:59 Pelger-Huet Cells Cancelled 04/29/19 05:59 Adrianna Rods Cancelled 04/29/19 05:59 Platelet Estimate Cancelled 04/29/19 05:59 Clumped Platelets Cancelled 04/29/19 05:59 Giant Platelets Cancelled 04/29/19 05:59 Polychromasia Cancelled 04/29/19 05:59 Poikilocytosis 1+ 04/22/19 05:40 Hypochromasia Cancelled 04/29/19 05:59 Anisocytosis 1+ 04/22/19 05:40 Basophilic Stippling Cancelled 04/29/19 05:59 Microcytosis Cancelled 04/29/19 05:59 Macrocytosis Cancelled 04/29/19 05:59 Spherocytes Cancelled 04/29/19 05:59 Sickle Cells Cancelled 04/29/19 05:59 Target Cells Cancelled 04/29/19 05:59 Tear Drop Cells Cancelled 04/29/19 05:59 Ovalocytes Cancelled 04/29/19 05:59 Stomatocytes Cancelled 04/29/19 05:59 [place] Bodies Cancelled 04/29/19 05:59 [place] Cells Cancelled 04/29/19 05:59 Elliptocytes Cancelled 04/29/19 05:59 Rouleaux Cancelled 04/29/19 05:59 Cold Agglutinates Cancelled 04/29/19 05:59 Unidentified Cells Cancelled 04/29/19 05:59 Schistocytes Cancelled 04/29/19 05:59 Morphology Comment Noted (NOT SEEN) 04/22/19 05:40 Sodium 135 mmol/L (136-145) L 04/29/19 05:59 Potassium 4.6 mmol/L (3.5-5.1) 04/29/19 05:59 Chloride 105 mmol/L (98-107) 04/29/19 05:59 Carbon Dioxide 23 mmol/L (21-32) 04/29/19 05:59 BUN 22 mg/dL (7-18) H 04/29/19 05:59 Creatinine 1.78 mg/dL (0.55-1.3) H 04/29/19 05:59 Estimated GFR 39 mL/min (=/>90) L 04/29/19 05:59 Glucose 167 mg/dL (74-106) H 04/29/19 05:59 Calcium 8.0 mg/dL (8.5-10.1) L 04/29/19 05:59 Magnesium 1.8 mg/dL (1.8-2.4) 04/29/19 05:59 Ammonia 20 umol/L (19-54) 04/23/19 05:40 Albumin 2.9 g/dL (3.4-5.0) L 04/29/19 05:59 Prealbumin 5.4 mg/dL (20-40) L 04/29/19 05:59 Urine Color Dk yellow 04/21/19 22:50 Urine Appearance Clear 04/21/19 22:50 Urine pH 5.5 (5.0-7.0) 04/21/19 22:50 Ur Specific [place] 1.015 (1.005-1.030) 04/21/19 22:50 Urine Ketones Trace (NEG) 04/21/19 22:50 Urine Blood Negative (NEG) 04/21/19 22:50 Urine Nitrite Negative (NEG) 04/21/19 22:50 Urine Bilirubin Negative (NEG) 04/21/19 22:50 Urine Urobilinogen 0.2 mg/dL (0.2-1.0) 04/21/19 22:50 Ur Leukocyte Esterase Negative (NEG) 04/21/19 22:50 Urine RBC None seen /HPF (NONE SEEN) 04/21/19 22:50 Urine WBC <5 /HPF (<5) 04/21/19 22:50 Ur Squamous Epith Cells <5 /HPF (NONE SEEN) 04/21/19 22:50 Ur Urothelial Cells <5 /HPF (NONE SEEN) 04/21/19 22:50 Urine Bacteria <20 /HPF (NONE SEEN) 04/21/19 22:50 Urine Mucus Slight /HPF (NONE SEEN) 04/21/19 22:50 Urine Culture Reflexed Not needed 04/21/19 22:50 Urine Glucose Negative (NEG) 04/21/19 22:50 Urine Total Protein 2+ (NEG) H 04/21/19 22:50 Weight: 239 lb 8 oz Wound Present: No Closed Surgical Incision Present: No Negative Pressure Wound Therapy Present: No Physician Update: Labs reviewed and are stable. His mood is better. He is participating well with physical and occupational therapy. Medical Issues: Patient is always continent with bladder and bowel. Functional Improvement: Patient has met all short-term goals at this time and is progressing well toward long-term goals. Patient is presenting well w/ good technique and overall safety awareness. Summary: Patient's care plan and senior care goals have been reviewed and revised as necessary. Please see the Rehabilitation Signature page for all necessary signatures.
[2019-05-01] MEDS: OXYCODONE HCL 5 MG TAB PO PRN ×3 (01:56→18:16)
--- NOTE | 2019-05-01 03:19 | FAST ---
SHIFT START DATE/TIME: 04/30/2019 19:00 (COMPLAINT INSPECTOR) SHIFT END DATE/TIME: 05/01/2019 07:00 (COMPLAINT INSPECTOR) NAME JANNET PARADA DATE OF : 1955 DATE OF ADMISSION: 04/21/2019 22:04 (COMPLAINT INSPECTOR) PHONE: AGE: 63 SSN# [id number] GENDER: Male ENCOUNTER PHYSICIAN: Dr. Calin Chung M.D. ADMISSION DIAGNOSIS: - Debility 16 - Debility (16) Decompensated Liver Cirrhosis . EATING: Not assessed/no information CODE: - ORAL HYGIENE: Not assessed/no information CODE: - TOILETING HYGIENE: TOILETING HYGIENE - STEP 1: Does the patient complete the activity by him/herself with no assistance (physical, verbal/nonverbal cueing, setup/clean-up)? No. TOILETING HYGIENE - STEP 2: Does the patient need only setup/clean-up assistance from one helper? No. TOILETING HYGIENE - STEP 3: Does the patient need only verbal/nonverbal cueing or touching/steadying/contact guard assistance fro m one helper? Yes. 1. [id number] ADMISSION PERFORMANCE: Supervision or touching assistance CODE: 04 BATHING: Not assessed/no information CODE: - DRESSING - UPPER BODY: Not assessed/no information CODE: - DRESSING - LOWER BODY: Not assessed/no information CODE: - PUTTING ON/TAKING OFF FOOTWEAR: Not assessed/no information CODE: - ROLL LEFT AND RIGHT: ROLL LEFT AND RIGHT - STEP 1: Does the patient complete the activity by him/herself with no assistance (physical, verbal/nonverbal cueing, setup/clean-up)? No. ROLL LEFT AND RIGHT - STEP 2: Does the patient need only setup/clean-up assistance from one helper? No. ROLL LEFT AND RIGHT - STEP 3: Does the patient need only verbal/nonverbal cueing or touching/steadying/contact guard assistance fro m one helper? Yes. 1. [id number] ADMISSION PERFORMANCE: Supervision or touching assistance CODE: 04 SIT TO LYING: SIT TO LYING - STEP 1: Does the patient complete the activity by him/herself with no assistance (physical, verbal/nonverbal cueing, setup/clean-up)? No. SIT TO LYING - STEP 2: Does the patient need only setup/clean-up assistance from one helper? No. SIT TO LYING - STEP 3: Does the patient need only verbal/nonverbal cueing or touching/steadying/contact guard assistance fro m one helper? Yes. 1. [id number] ADMISSION PERFORMANCE: Supervision or touching assistance CODE: 04 LYING TO SITTING: LYING TO SITTING ON SIDE OF BED - STEP 1: Does the patient complete the activity by him/herself with no assistance (physical, verbal/nonverbal cueing, setup/clean-up)? No. LYING TO SITTING ON SIDE OF BED - STEP 2: Does the patient need only setup/clean-up assistance from one helper? No. LYING TO SITTING ON SIDE OF BED - STEP 3: Does the patient need only verbal/nonverbal cueing or touching/steadying/contact guard assistance fro m one helper? Yes. 1. [id number] ADMISSION PERFORMANCE: Supervision or touching assistance CODE: 04 SIT TO STAND: SIT TO STAND - STEP 1: Does the patient complete the activity by him/herself with no assistance (physical, verbal/nonverbal cueing, setup/clean-up)? No. SIT TO STAND - STEP 2: Does the patient need only setup/clean-up assistance from one helper? No. SIT TO STAND - STEP 3: Does the patient need only verbal/nonverbal cueing or touching/steadying/contact guard assistance fro m one helper? Yes. 1. [id number] ADMISSION PERFORMANCE: Supervision or touching assistance CODE: 04 TRANSFERS: BED, CHAIR: CHAIR/[id number] TRANSFER - STEP 1: Does the patient complete the activity by him/herself with no assistance (physical, verbal/nonverbal cueing, setup/clean-up)? No. CHAIR/[id number] TRANSFER - STEP 2: Does the patient need only setup/clean-up assistance from one helper? No. CHAIR/[id number] TRANSFER - STEP 3: Does the patient need only verbal/nonverbal cueing or touching/steadying/contact guard assistance fro m one helper? Yes. 1. [id number] ADMISSION PERFORMANCE: Supervision or touching assistance CODE: 04 TRANSFER TOILET: Not assessed/no information CODE: - TRANSFERS: CAR: Not assessed/no information CODE: - WALK 10 FEET: Not assessed/no information CODE: - 1 STEP (CURB): Not assessed/no information CODE: - PICKING UP OBJECT: Not assessed/no information CODE: - DOES THE PATIENT USE A WHEELCHAIR/SCOOTER? CODE: EXPR WHEEL 50 FEET WITH TWO TURNS: Not assessed/no information CODE: - INDICATE THE TYPE OF WHEELCHAIR/SCOOTER USED: CODE: EXPR WHEEL 150 FEET: Not assessed/no information CODE: - INDICATE THE TYPE OF WHEELCHAIR/SCOOTER USED: CODE: EXPR BLADDER AND BOWEL: H350. BLADDER CONTINENCE (3-DAY ASSESSMENT PERIOD): Always continent (no documented incontinence) CODE: 0 H400. BOWEL CONTINENCE (3-DAY ASSESSMENT PERIOD): Always continent CODE: 0
[2019-05-01 05:38] VITALS: BMI 31.9
[2019-05-01] MEDS: PROMOD 30 ML DOSE PO SCH ×2 (08:00→20:00)
[2019-05-01] MEDS: PANTOPRAZOLE 40MG TABLET PO SCH ×2 (08:22→17:05)
[2019-05-01] MEDS: SPIRONOLACTONE 25 MG TABLET PO SCH ×2 (08:22→17:05)
[2019-05-01] MEDS: LACTULOSE 20 GM/30 ML UCUP PO SCH ×2 (08:22→21:18)
[2019-05-01] MEDS: FERROUS SULFATE 325 MG TAB PO SCH (08:24)
[2019-05-01] MEDS: MAGNESIUM OXIDE 400 MG TAB PO SCH ×2 (08:24→21:19)
[2019-05-01] MEDS: OXYCODONE *CR* 20 MG TAB PO SCH ×2 (08:24→21:19)
[2019-05-01] MEDS: FOLBIC 1 TAB PO SCH (08:24)
[2019-05-01] MEDS: FE SULF/FA/VIT B COMP & C TAB PO SCH (08:24)
[2019-05-01] MEDS: GABAPENTIN 300 MG CAP PO SCH ×2 (08:24→21:19)
[2019-05-01] MEDS: FUROSEMIDE 20 MG TABLET PO SCH ×2 (08:25→17:05)
[2019-05-01] MEDS: Rifaximin 550 MG Tab PO SCH ×2 (08:26→21:19)
--- NOTE | 2019-05-01 16:23 | FAST ---
SHIFT START DATE/TIME: 05/01/2019 07:00 (BUSINESS PROJECT ANALYST) SHIFT END DATE/TIME: 05/01/2019 19:00 (BUSINESS PROJECT ANALYST) NAME JANNET PARADA DATE OF : 1955 DATE OF ADMISSION: 04/21/2019 22:04 (BUSINESS PROJECT ANALYST) PHONE: AGE: 63 SSN# [id number] GENDER: Male ENCOUNTER PHYSICIAN: Dr. Calin Chung M.D. ADMISSION DIAGNOSIS: - Debility 16 - Debility (16) Decompensated Liver Cirrhosis . EATING: EATING - STEP 1: Does the patient complete the activity by him/herself with no assistance (physical, verbal/nonverbal cueing, setup/clean-up)? No. EATING - STEP 2: Does the patient need only setup/clean-up assistance from one helper? Yes. 1. [id number] ADMISSION PERFORMANCE: Setup or clean-up assistance CODE: 05 ORAL HYGIENE: ORAL HYGIENE - STEP 1: Does the patient complete the activity by him/herself with no assistance (physical, verbal/nonverbal cueing, setup/clean-up)? Yes. 1. [id number] ADMISSION PERFORMANCE: Independent CODE: 06 TOILETING HYGIENE: TOILETING HYGIENE - STEP 1: Does the patient complete the activity by him/herself with no assistance (physical, verbal/nonverbal cueing, setup/clean-up)? No. TOILETING HYGIENE - STEP 2: Does the patient need only setup/clean-up assistance from one helper? Yes. 1. [id number] ADMISSION PERFORMANCE: Setup or clean-up assistance CODE: 05 BATHING: Not assessed/no information CODE: - DRESSING - UPPER BODY: DRESSING - UPPER BODY - STEP 1: Does the patient complete the activity by him/herself with no assistance (physical, verbal/nonverbal cueing, setup/clean-up)? No. DRESSING - UPPER BODY - STEP 2: Does the patient need only setup/clean-up assistance from one helper? Yes. 1. [id number] ADMISSION PERFORMANCE: Setup or clean-up assistance CODE: 05 DRESSING - LOWER BODY: DRESSING - LOWER BODY - STEP 1: Does the patient complete the activity by him/herself with no assistance (physical, verbal/nonverbal cueing, setup/clean-up)? No. DRESSING - LOWER BODY - STEP 2: Does the patient need only setup/clean-up assistance from one helper? Yes. 1. [id number] ADMISSION PERFORMANCE: Setup or clean-up assistance CODE: 05 PUTTING ON/TAKING OFF FOOTWEAR: FOOTWEAR - STEP 1: Does the patient complete the activity by him/herself with no assistance (physical, verbal/nonverbal cueing, setup/clean-up)? Yes. 1. [id number] ADMISSION PERFORMANCE: Independent CODE: 06 ROLL LEFT AND RIGHT: ROLL LEFT AND RIGHT - STEP 1: Does the patient complete the activity by him/herself with no assistance (physical, verbal/nonverbal cueing, setup/clean-up)? Yes. 1. [id number] ADMISSION PERFORMANCE: Independent CODE: 06 SIT TO LYING: SIT TO LYING - STEP 1: Does the patient complete the activity by him/herself with no assistance (physical, verbal/nonverbal cueing, setup/clean-up)? Yes. 1. [id number] ADMISSION PERFORMANCE: Independent CODE: 06 LYING TO SITTING: LYING TO SITTING ON SIDE OF BED - STEP 1: Does the patient complete the activity by him/herself with no assistance (physical, verbal/nonverbal cueing, setup/clean-up)? Yes. 1. [id number] ADMISSION PERFORMANCE: Independent CODE: 06 SIT TO STAND: SIT TO STAND - STEP 1: Does the patient complete the activity by him/herself with no assistance (physical, verbal/nonverbal cueing, setup/clean-up)? No. SIT TO STAND - STEP 2: Does the patient need only setup/clean-up assistance from one helper? No. SIT TO STAND - STEP 3: Does the patient need only verbal/nonverbal cueing or touching/steadying/contact guard assistance fro m one helper? Yes. 1. [id number] ADMISSION PERFORMANCE: Supervision or touching assistance CODE: 04 TRANSFERS: BED, CHAIR: CHAIR/[id number] TRANSFER - STEP 1: Does the patient complete the activity by him/herself with no assistance (physical, verbal/nonverbal cueing, setup/clean-up)? No. CHAIR/[id number] TRANSFER - STEP 2: Does the patient need only setup/clean-up assistance from one helper? No. CHAIR/[id number] TRANSFER - STEP 3: Does the patient need only verbal/nonverbal cueing or touching/steadying/contact guard assistance fro m one helper? Yes. 1. [id number] ADMISSION PERFORMANCE: Supervision or touching assistance CODE: 04 TRANSFER TOILET: TOILET TRANSFER - STEP 1: Does the patient complete the activity by him/herself with no assistance (physical, verbal/nonverbal cueing, setup/clean-up)? Yes. 1. [id number] ADMISSION PERFORMANCE: Independent CODE: 06 TRANSFERS: CAR: Not assessed/no information CODE: - WALK 50 FEET: Not assessed/no information CODE: - WALK 150 FEET: Not assessed/no information CODE: - WALK 10 FEET UNEVEN: Not assessed/no information CODE: - 1 STEP (CURB): Not assessed/no information CODE: - PICKING UP OBJECT: Not assessed/no information CODE: - DOES THE PATIENT USE A WHEELCHAIR/SCOOTER? Q1. DOES THE PATIENT USE A WHEELCHAIR/SCOOTER?: Yes CODE: 1 WHEEL 50 FEET WITH TWO TURNS: Not assessed/no information CODE: - INDICATE THE TYPE OF WHEELCHAIR/SCOOTER USED: RR1. INDICATE THE TYPE OF WHEELCHAIR/SCOOTER USED.: Manual CODE: 1 WHEEL 150 FEET: Not assessed/no information CODE: - INDICATE THE TYPE OF WHEELCHAIR/SCOOTER USED: SS1. INDICATE THE TYPE OF WHEELCHAIR/SCOOTER USED.: Manual CODE: 1 BLADDER AND BOWEL: H350. BLADDER CONTINENCE (3-DAY ASSESSMENT PERIOD): Always continent (no documented incontinence) CODE: 0 H400. BOWEL CONTINENCE (3-DAY ASSESSMENT PERIOD): Always continent CODE: 0 SIGNATURE PANEL: The following modified sections: 1. [id number] Admission Performance, 1. [id number] Admission Performance, 1. [id number] Admission Performance, 1. [id number] Admission Performance, 1. [id number] Admission Performance, 1. MI3069K Admission Performance, 1. [id number] Admission Performance, 1. [id number] Admission Performance , 1. [id number] Admission Performance, 1. DP0204H Admission Performance, 1. [id number] Admission Performanc e, Q1. Does the patient use a wheelchair/scooter?, RR1. Indicate the type of wheelchair/scooter used. , Code, SS1. Indicate the type of wheelchair/scooter used., H350. Bladder Continence (3-day assessmen t period), H400. Bowel Continence (3-day assessment period), 1. [id number] Admission Performance were [e lectronically] signed by Berenice Thorne C.N.A. on Sat May 01 2019 16:23:25 GMT-0600 (Central Standard Time)
[2019-05-01] MEDS: ONDANSETRON 4 MG (ODT) TAB PO PRN (18:19)
[2019-05-02] MEDS: OXYCODONE HCL 5 MG TAB PO PRN ×2 (07:06→14:43)
[2019-05-02] MEDS: LACTULOSE 20 GM/30 ML UCUP PO SCH ×2 (07:34→21:00)
[2019-05-02] MEDS: OXYCODONE *CR* 20 MG TAB PO SCH ×2 (07:35→21:00)
[2019-05-02] MEDS: MAGNESIUM OXIDE 400 MG TAB PO SCH ×2 (07:36→21:00)
[2019-05-02] MEDS: SPIRONOLACTONE 25 MG TABLET PO SCH ×2 (07:36→17:08)
[2019-05-02] MEDS: FERROUS SULFATE 325 MG TAB PO SCH (07:36)
[2019-05-02] MEDS: FOLBIC 1 TAB PO SCH (07:36)
[2019-05-02] MEDS: FE SULF/FA/VIT B COMP & C TAB PO SCH (07:36)
[2019-05-02] MEDS: GABAPENTIN 300 MG CAP PO SCH ×2 (07:36→21:00)
[2019-05-02] MEDS: PANTOPRAZOLE 40MG TABLET PO SCH ×2 (07:37→17:07)
[2019-05-02] MEDS: Rifaximin 550 MG Tab PO SCH ×2 (07:37→21:00)
[2019-05-02] MEDS: FUROSEMIDE 20 MG TABLET PO SCH ×2 (07:37→17:08)
[2019-05-02] MEDS: PROMOD 30 ML DOSE PO SCH ×2 (07:38→20:00)
[2019-05-02] MEDS: ONDANSETRON 4 MG (ODT) TAB PO PRN ×2 (14:47→21:04)
[2019-05-03] MEDS: OXYCODONE HCL 5 MG TAB PO PRN ×2 (02:44→15:11)
[2019-05-03] MEDS: PROMOD 30 ML DOSE PO SCH ×2 (08:00→20:00)
[2019-05-03] MEDS: LACTULOSE 20 GM/30 ML UCUP PO SCH ×2 (08:49→20:25)
[2019-05-03] MEDS: PANTOPRAZOLE 40MG TABLET PO SCH ×2 (08:49→17:11)
[2019-05-03] MEDS: FERROUS SULFATE 325 MG TAB PO SCH (08:50)
[2019-05-03] MEDS: FOLBIC 1 TAB PO SCH (08:50)
[2019-05-03] MEDS: GABAPENTIN 300 MG CAP PO SCH ×2 (08:50→20:25)
[2019-05-03] MEDS: FUROSEMIDE 20 MG TABLET PO SCH ×2 (08:50→17:10)
[2019-05-03] MEDS: FE SULF/FA/VIT B COMP & C TAB PO SCH (08:50)
[2019-05-03] MEDS: MAGNESIUM OXIDE 400 MG TAB PO SCH ×2 (08:51→20:25)
[2019-05-03] MEDS: Rifaximin 550 MG Tab PO SCH ×2 (08:51→20:29)
[2019-05-03] MEDS: OXYCODONE *CR* 20 MG TAB PO SCH ×2 (08:51→20:26)
[2019-05-03] MEDS: SPIRONOLACTONE 25 MG TABLET PO SCH ×2 (08:52→17:10)
[2019-05-03] MEDS: ONDANSETRON 4 MG (ODT) TAB PO PRN ×3 (08:53→20:29)
--- NOTE | 2019-05-03 10:05 | FAST ---
SHIFT START DATE/TIME: 05/03/2019 07:00 (ONLINE HEALTH AND FITNESS COACH) SHIFT END DATE/TIME: 05/03/2019 19:00 (ONLINE HEALTH AND FITNESS COACH) NAME JANNET PARADA DATE OF : 1955 DATE OF ADMISSION: 04/21/2019 22:04 (ONLINE HEALTH AND FITNESS COACH) PHONE: AGE: 63 SSN# [id number] GENDER: Male ENCOUNTER PHYSICIAN: Dr. Calin Chung M.D. ADMISSION DIAGNOSIS: - Debility 16 - Debility (16) Decompensated Liver Cirrhosis . EATING: EATING - STEP 1: Does the patient complete the activity by him/herself with no assistance (physical, verbal/nonverbal cueing, setup/clean-up)? No. EATING - STEP 2: Does the patient need only setup/clean-up assistance from one helper? No. EATING - STEP 3: Does the patient need only verbal/nonverbal cueing or touching/steadying/contact guard assistance fro m one helper? Yes. 1. [id number] ADMISSION PERFORMANCE: Supervision or touching assistance CODE: 04 ORAL HYGIENE: ORAL HYGIENE - STEP 1: Does the patient complete the activity by him/herself with no assistance (physical, verbal/nonverbal cueing, setup/clean-up)? No. ORAL HYGIENE - STEP 2: Does the patient need only setup/clean-up assistance from one helper? No. ORAL HYGIENE - STEP 3: Does the patient need only verbal/nonverbal cueing or touching/steadying/contact guard assistance fro m one helper? Yes. 1. [id number] ADMISSION PERFORMANCE: Supervision or touching assistance CODE: 04 TOILETING HYGIENE: TOILETING HYGIENE - STEP 1: Does the patient complete the activity by him/herself with no assistance (physical, verbal/nonverbal cueing, setup/clean-up)? No. TOILETING HYGIENE - STEP 2: Does the patient need only setup/clean-up assistance from one helper? Yes. 1. [id number] ADMISSION PERFORMANCE: Setup or clean-up assistance CODE: 05 BATHING: Not assessed/no information CODE: - DRESSING - UPPER BODY: Not assessed/no information CODE: - DRESSING - LOWER BODY: Not assessed/no information CODE: - PUTTING ON/TAKING OFF FOOTWEAR: Not assessed/no information CODE: - ROLL LEFT AND RIGHT: ROLL LEFT AND RIGHT - STEP 1: Does the patient complete the activity by him/herself with no assistance (physical, verbal/nonverbal cueing, setup/clean-up)? No. ROLL LEFT AND RIGHT - STEP 2: Does the patient need only setup/clean-up assistance from one helper? No. ROLL LEFT AND RIGHT - STEP 3: Does the patient need only verbal/nonverbal cueing or touching/steadying/contact guard assistance fro m one helper? Yes. 1. [id number] ADMISSION PERFORMANCE: Supervision or touching assistance CODE: 04 SIT TO LYING: SIT TO LYING - STEP 1: Does the patient complete the activity by him/herself with no assistance (physical, verbal/nonverbal cueing, setup/clean-up)? No. SIT TO LYING - STEP 2: Does the patient need only setup/clean-up assistance from one helper? No. SIT TO LYING - STEP 3: Does the patient need only verbal/nonverbal cueing or touching/steadying/contact guard assistance fro m one helper? Yes. 1. [id number] ADMISSION PERFORMANCE: Supervision or touching assistance CODE: 04 LYING TO SITTING: LYING TO SITTING ON SIDE OF BED - STEP 1: Does the patient complete the activity by him/herself with no assistance (physical, verbal/nonverbal cueing, setup/clean-up)? No. LYING TO SITTING ON SIDE OF BED - STEP 2: Does the patient need only setup/clean-up assistance from one helper? No. LYING TO SITTING ON SIDE OF BED - STEP 3: Does the patient need only verbal/nonverbal cueing or touching/steadying/contact guard assistance fro m one helper? Yes. 1. [id number] ADMISSION PERFORMANCE: Supervision or touching assistance CODE: 04 SIT TO STAND: SIT TO STAND - STEP 1: Does the patient complete the activity by him/herself with no assistance (physical, verbal/nonverbal cueing, setup/clean-up)? No. SIT TO STAND - STEP 2: Does the patient need only setup/clean-up assistance from one helper? No. SIT TO STAND - STEP 3: Does the patient need only verbal/nonverbal cueing or touching/steadying/contact guard assistance fro m one helper? Yes. 1. [id number] ADMISSION PERFORMANCE: Supervision or touching assistance CODE: 04 TRANSFERS: BED, CHAIR: CHAIR/[id number] TRANSFER - STEP 1: Does the patient complete the activity by him/herself with no assistance (physical, verbal/nonverbal cueing, setup/clean-up)? No. CHAIR/[id number] TRANSFER - STEP 2: Does the patient need only setup/clean-up assistance from one helper? No. CHAIR/[id number] TRANSFER - STEP 3: Does the patient need only verbal/nonverbal cueing or touching/steadying/contact guard assistance fro m one helper? Yes. 1. [id number] ADMISSION PERFORMANCE: Supervision or touching assistance CODE: 04 TRANSFER TOILET: TOILET TRANSFER - STEP 1: Does the patient complete the activity by him/herself with no assistance (physical, verbal/nonverbal cueing, setup/clean-up)? No. TOILET TRANSFER - STEP 2: Does the patient need only setup/clean-up assistance from one helper? No. TOILET TRANSFER - STEP 3: Does the patient need only verbal/nonverbal cueing or touching/steadying/contact guard assistance fro m one helper? Yes. 1. [id number] ADMISSION PERFORMANCE: Supervision or touching assistance CODE: 04 TRANSFERS: CAR: Not assessed/no information CODE: - WALK 10 FEET: Not assessed/no information CODE: - 1 STEP (CURB): Not assessed/no information CODE: - PICKING UP OBJECT: Not assessed/no information CODE: - DOES THE PATIENT USE A WHEELCHAIR/SCOOTER? CODE: EXPR WHEEL 50 FEET WITH TWO TURNS: Not assessed/no information CODE: - INDICATE THE TYPE OF WHEELCHAIR/SCOOTER USED: CODE: EXPR WHEEL 150 FEET: Not assessed/no information CODE: - INDICATE THE TYPE OF WHEELCHAIR/SCOOTER USED: CODE: EXPR BLADDER AND BOWEL: H350. BLADDER CONTINENCE (3-DAY ASSESSMENT PERIOD): Always continent (no documented incontinence) CODE: 0 H400. BOWEL CONTINENCE (3-DAY ASSESSMENT PERIOD): Always continent CODE: 0 SIGNATURE PANEL: The following modified sections: 1. [id number] Admission Performance, 1. [id number] Admission Performance, 1. [id number] Admission Performance, 1. [id number] Admission Performance, 1. [id number] Admission Performance, 1. [id number] Admission Performance, 1. [id number] Admission Performance, 1. [id number] Admission Performance , 1. [id number] Admission Performance, Code, H350. Bladder Continence (3-day assessment period), H400. B owel Continence (3-day assessment period) were [electronically] signed by Stan Penny on FriMay 03 10:04:58 GMT-0600 (Central Standard Time)
--- NOTE | 2019-05-03 16:19 | FAST ---
ENCOUNTER DATE AND TIME: 05/03/2019 08:00 (AIR POLLUTION COMPLIANCE INSPECTOR) NAME JANNET PARADA DATE OF : 1955 DATE OF ADMISSION: 04/21/2019 22:04 (AIR POLLUTION COMPLIANCE INSPECTOR) PHONE: AGE: 63 N# [id number] GENDER: Male ENCOUNTER PHYSICIAN: Dr. Calin Chung M.D. ADMISSION DIAGNOSIS: - Debility 16 - Debility (16) Decompensated Liver Cirrhosis . EATING: Not assessed/no information CODE: - ORAL HYGIENE: ORAL HYGIENE - STEP 1: Does the patient complete the activity by him/herself with no assistance (physical, verbal/nonverbal cueing, setup/clean-up)? Yes. 1. ADMISSION PERFORMANCE: Independent CODE: 06 TOILETING HYGIENE: Not assessed/no information CODE: - BATHING: SHOWER/BATHE SELF - STEP 1: Does the patient complete the activity by him/herself with no assistance (physical, verbal/nonverbal cueing, setup/clean-up)? Yes. 1. ADMISSION PERFORMANCE: Independent CODE: 06 DRESSING - UPPER BODY: DRESSING - UPPER BODY - STEP 1: Does the patient complete the activity by him/herself with no assistance (physical, verbal/nonverbal cueing, setup/clean-up)? Yes. 1. ADMISSION PERFORMANCE: Independent CODE: 06 DRESSING - LOWER BODY: DRESSING - LOWER BODY - STEP 1: Does the patient complete the activity by him/herself with no assistance (physical, verbal/nonverbal cueing, setup/clean-up)? Yes. 1. [id number] ADMISSION PERFORMANCE: Independent CODE: 06 PUTTING ON/TAKING OFF FOOTWEAR: FOOTWEAR - STEP 1: Does the patient complete the activity by him/herself with no assistance (physical, verbal/nonverbal cueing, setup/clean-up)? Yes. 1. [id number] ADMISSION PERFORMANCE: Independent CODE: 06 DOES THE PATIENT USE A WHEELCHAIR/SCOOTER? CODE: EXPR INDICATE THE TYPE OF WHEELCHAIR/SCOOTER USED: CODE: EXPR INDICATE THE TYPE OF WHEELCHAIR/SCOOTER USED: CODE: EXPR BLADDER AND BOWEL: CODE: EXPR CODE: EXPR SIGNATURE PANEL: The following modified sections: 1. [id number] Admission Performance, 1. [id number] Admission Performance, 1. [id number] Admission Performance, 1. [id number] Admission Performance, 1. [id number] Admission Performance were [electronically] signed by SAVANNAH George on FriMay 03 2019 16:18:55 GMT-0600 (Central Standard Time)
--- NOTE | 2019-05-03 18:23 | R.PN ---
ENCOUNTER DATE AND TIME: 05/03/2019 18:18 (INTELLIGENCE DIRECTOR) NAME JANNET PARADA DATE OF : 1955 DATE OF ADMISSION: 04/21/2019 22:04 (INTELLIGENCE DIRECTOR) Decompensated Liver Cirrhosis CHIEF COMPLAINT: Debility and liver cirrhosis. SUBJECTIVE: Pt denied any depression. Pt denied any Shortness of Breath. Ambulated 1250' using a rolling walker with independence. Up and down 15 steps with independence. His prealbumin is low at 5.4, Machining Supervisor is high at 1.78. His hydration has been increased. Chronically low WBC at 1.8. VITAL SIGNS Temperature: 97.4 F SBP/DBP: 139/77 Pulse: 91 Resp: 16 MEDICATION ALLERGIES: No Known Drug Allergies (NKDA) ENVIRONMENTAL ALLERGIES: Shellfish - Substance Allergies None Known - Other Allergies None Known NURSING: - Shower allowing shower ACTIVITIES OOB only with supervision THERAPIES: - Dietary and Nutrition Adequate Nutrition. Nutritional Education. Nutritional Supplements. PHYSICAL EXAM - Gen Alert and awake Lying in bed No apparent distress Oriented to: person, time, and place - Skin No skin breakdown. Normacephalic - Eyes No abnormalities - ENMT No abnormalities - Neck No abnormalities No cervical adenopathy - CVS RRR - Chest No abnormalities - Resp Clear to auscultation - Abd Soft - GI Non distended Deferred - No abnormalities - Ext Mild bilateral lower extremity edema. - MSK 4+/5 weakness in both lower extremities. - Neuro No focal deficits - Psych No abnormalities ASSESSMENT: Pt. is a 63 yo Right-handed white male.On 04/09/2019 he was admitted to [facility] with diagnosis Decompensated Liver Cirrhosis .His impairment category is Debility 16 - Debil ity (16).Pre-morbidly, Pt. was independent/mod-I in Transfers Control, Safety Awareness, Locomotion, Balance, Social Cognition, Sphincter Control, Self-Care, and Endurance; and he had good Safety Awaren ess.Currently, he has deficits of Locomotion, Balance, Transfers Control, Self-Care, and Endurance.Pt . is now referred to [facility] for acute in-patient rehabilitation in order t o maximize patient's functional independence in activities of daily living, strength, ROM, and mobili ty.- Rehab Goal Patient has realistic goal of being discharged at assistance level 6-[place] to reside at Home with Fam rubén/Relatives. MDM/PLAN: - Physical Therapy Gait dysfunction - to improve, our physical therapists will perform initial evaluation of pt's statu s upon admission and devise an individualized program for Gait Training, and Wheel Chair mobility Inability to transfer - to improve, our physical therapists will perform initial evaluation of pt's status upon admission and devise an individualized program for Bed mobility Need for home safety evaluation - to improve, our physical therapists will perform initial evaluatio n of pt's status upon admission and devise an individualized program for Home Evaluation Need in caregiver upon discharge - to improve, our physical therapists will perform initial evaluati on of pt's status upon admission and devise an individualized program for Caregiver Training Edema - to improve, our physical therapists will perform initial evaluation of pt's status upon admi ssion and devise an individualized program for Elevation Training, and Lymphedema Therapy New precaution - to improve, our physical therapists will perform initial evaluation of pt's status upon admission and devise an individualized program for Patient precaution education Poor balance - to improve, our physical therapists will perform initial evaluation of pt's status up on admission and devise an individualized program for Balance Training Poor endurance - to improve, our physical therapists will perform initial evaluation of pt's status upon admission and devise an individualized program for Endurance Training Weakness - to improve, our physical therapists will perform initial evaluation of pt's status upon a dmission and devise an individualized program for Aquatic Therapy, Neuromuscular Reeducation, and Str engthening Achieving independence - to improve, our physical therapists will perform initial evaluation of pt's status upon admission and devise an individualized program for Community Reintegration Activities - Occupational Therapy ADL deficits - to improve, our occupation therapists will perform initial evaluation of pt's status upon admission and devise an individualized program for Bathing, Bed mobility, Community Reintegratio n, Cooking, Dressing, Eating, Fine Motor Skills, Grooming, Homemaking, Kitchen Mobility, Laundry, Pat ient Education, Safety Awareness, Splinting - Positioning, Transfers(Toilet, Tub, Shower), and Wheel Chair Management Need for progressive care unit registered nurse - to improve, our occupation therapists will perform initial evaluation of pt's status upon admission and devise an individualized program for Caregiver Training Weakness - to improve, our occupation therapists will perform initial evaluation of pt's status upon admission and devise an individualized program for Aquatic Therapy, Balance, Endurance, UE ROM, and UE strengthening - Other See attached MAR (Medication Administration Record) - Diet Type Continue Regular - Diet - Liquid Texture Continue Regular - Tube Feed Continue N/A - Diet - Solid Texture Continue Regular - Shower allowing shower FUNCTIONAL STATUS: UPDATED AT WEEKLY TEAM CONFERENCE - Bladder Same accident frequency: 7-Ind - No accidents in the past 7 days - Bowel Same accident frequency: 7-Ind - No accidents in the past 7 days - Walking Same score based on distance walked: 0(N/A) - Wheelchair Same score based on distance traveled: 0(N/A) FUNCTIONAL STATUS: - Self-Care A. Eating Ind B. Grooming Ind C. Bathing [place] D. Dressing - Upper sup E. Dressing - Lower [place] F. Toileting [place] - Sphincter Control G. Bladder control [place] H. Bowel control [place] - Transfers Control I. Bed/Chair/Wheelchair sup J. Toilet [place] K. Tub/Shower [place] - Locomotion L. Walk/Wheelchair (B) [place] M. Stairs maxA - Communication N. Comprehension (B) sup O. Expression (B) sup - Social Cognition P. Social Interaction Ind Q. Problem Solving Ind R. Memory sup - Endurance Good - Balance Good - Safety Awareness Good QI SCORES: - Self-Care A. Eating 04-Supervision or touching assistance B. Oral hygiene 04-Supervision or touching assistance C. Toileting hygiene 03-Partial/moderate assistance E. Shower/bathe self 03-Partial/moderate assistance F. Upper body dressing 03-Partial/moderate assistance G. Lower body dressing 03-Partial/moderate assistance H. Putting on/taking off footwear 03-Partial/moderate assistance - Mobility A. Roll left and right 03-Partial/moderate assistance B. Sit to lying 03-Partial/moderate assistance C. Lying to sitting on side of bed 88-Not attempted due to medical condition or safety concerns D. Sit to stand 03-Partial/moderate assistance E. Chair/zol-ng-ifxnn transfer 03-Partial/moderate assistance F. Toilet transfer 03-Partial/moderate assistance G. Car transfer 88-Not attempted due to medical condition or safety concerns I. Walk 10 feet 03-Partial/moderate assistance J. Walk 50 feet with two turns 88-Not attempted due to medical condition or safety concerns K. Walk 150 feet 88-Not attempted due to medical condition or safety concerns L. Walking 10 feet on uneven surfaces 88-Not attempted due to medical condition or safety concerns M. 1 step (curb) 88-Not attempted due to medical condition or safety concerns N. 4 steps 88-Not attempted due to medical condition or safety concerns O. 12 steps 88-Not attempted due to medical condition or safety concerns P. Picking up object 88-Not attempted due to medical condition or safety concerns R. Wheel 50 feet with two turns 88-Not attempted due to medical condition or safety concerns S. Wheel 150 feet 88-Not attempted due to medical condition or safety concerns - Bladder and Bowel Bladder continence 0-Always continent Bowel continence 0-Always continent - Endurance Fair - Balance Fair - Safety Awareness Fair CURRENT FUNC. DEFICITS: Self-Care, Mobility, Endurance, Balance, and Safety Awareness SIGNATURE PANEL: (INTELLIGENCE DIRECTOR)
[2019-05-03] MEDS: MELATONIN 3 MG TABLET PO PRN (20:26)
[2019-05-04] MEDS: OXYCODONE HCL 5 MG TAB PO PRN ×2 (02:43→12:38)
[2019-05-04 06:51] VITALS: BP 114/62; TEMP 97.4
[2019-05-04] MEDS: LACTULOSE 20 GM/30 ML UCUP PO SCH (08:00)
[2019-05-04] MEDS: PROMOD 30 ML DOSE PO SCH (08:00)
[2019-05-04] MEDS: OXYCODONE *CR* 20 MG TAB PO SCH (08:30)
[2019-05-04] MEDS: FOLBIC 1 TAB PO SCH (09:00)
[2019-05-04] MEDS: Rifaximin 550 MG Tab PO SCH (09:00)
[2019-05-04] MEDS: MAGNESIUM OXIDE 400 MG TAB PO SCH (09:00)
[2019-05-04] MEDS: ONDANSETRON 4 MG (ODT) TAB PO PRN ×2 (09:00→12:39)
[2019-05-04] MEDS: FE SULF/FA/VIT B COMP & C TAB PO SCH (09:00)
[2019-05-04] MEDS: GABAPENTIN 300 MG CAP PO SCH (09:00)
[2019-05-04] MEDS: FERROUS SULFATE 325 MG TAB PO SCH (09:00)
[2019-05-04] MEDS: SPIRONOLACTONE 25 MG TABLET PO SCH (12:10)
[2019-05-04] MEDS: FUROSEMIDE 20 MG TABLET PO SCH (12:12)
[2019-05-04] MEDS: PANTOPRAZOLE 40MG TABLET PO SCH (12:12)
== END 2019-05-04 16:13 | disposition home or self-care (01) | DRG 432 ==
LOC: 5TH 04-21 22:04
PROVIDERS: ADMIT Psychiatry & Neurology Neurology with Special Qualifications in Child Neurology; ATTEND Psychiatry & Neurology Neurology with Special Qualifications in Child Neurology
DX: K74.69 Other cirrhosis of liver (principal); G04.30 Acute necrotizing hemorrhagic encephalopathy, unspecified; R18.8 Other ascites; I48.92 Unspecified atrial flutter; C22.0 Liver cell carcinoma; Q61.3 Polycystic kidney, unspecified; I49.9 Cardiac arrhythmia, unspecified; I48.91 Unspecified atrial fibrillation; N18.9 Chronic kidney disease, unspecified; R01.1 Cardiac murmur, unspecified; B19.20 Unspecified viral hepatitis C without hepatic coma; I12.9 Hypertensive chronic kidney disease with stage 1 through stage 4 chronic kidney disease, or unspecified chronic kidney disease; R53.81 Other malaise; D64.89 Other specified anemias; F99 Mental disorder, not otherwise specified
CPT/HCPCS: 36415; 74018; 80048; 81001; 82040; 82140; 83735; 84134; 85025; 87086; 87088; 97110; 97116; 97161; 97530; 97542; J0692